=== PATIENT | female | born 1965 | race African-American/Black ===

== ENCOUNTER 2021-10-17 10:29 | Outpatient (REF) | payer OTHER, SELFPAY ==
[2021-10-17 12:19] LABS: MANUAL DIFF FLAG NO
[2021-10-17 12:40] LABS: Basophils Percent Auto 0.4 % (0-2); Eosinophils Absolute Auto 0.1 X10*3/uL (0.0-0.4); Eosinophils Percent Auto 1.7 % (0-4); Hemoglobin 13.6 g/dl (12.0-16.0); Lymphocytes Absolute Auto 1.8 X10*3/uL (1.2-4.9); Lymphocytes Percent Auto 36.8 % (20-40); Mean Corpuscular HGB Conc 33.2 g/dl (31.0-35.0); Mean Corpuscular Hemoglobin 27.1 pg (27.0-33.0); Mean Corpuscular Volume 81.7 fL (80.0-98.0); Monocytes Absolute Auto 0.5 X10*3/uL (0.1-1.2); Monocytes Percent Auto 10.3 % (2-11); Neutrophils Absolute Auto 2.4 x10*3/uL (2.0-8.3); Neutrophils Percent Auto 50.8 % (45-73); Platelet Count 240 X10*3/uL (160-400); Red Blood Count 5.02 X10*6/uL (4.20-5.50); Red Cell Distribution Width 14.5 % (11.0-16.0); White Blood Count 4.8 X10*3/uL (4.8-10.8)
[2021-10-17 13:09] LABS: Alanine Aminotransferase 13 U/L (0-31); Aspartate Amino Transferase 14 U/L (5-31); C Reactive Protein 0.29 mg/dL (< or = 0.50); Estimated Glomerular Filt Rate 59
[2021-10-17 13:32] LABS: Erythrocyte Sedimentation Rate 11 MM/HR (0-20)
== END 2021-10-17 10:30 | disposition home or self-care (01) ==
LOC: HO.LAB 10:29
PROVIDERS: PCP Internal Medicine; Visit Provider Internal Medicine Rheumatology
DX: M06.00 Rheumatoid arthritis without rheumatoid factor, unspecified site (principal); M47.817 Spondylosis without myelopathy or radiculopathy, lumbosacral region; Z79.899 Other long term (current) drug therapy
CPT/HCPCS: 36415; 82565; 84450; 84460; 85025; 85652; 86140

== ENCOUNTER 2022-02-15 13:01 | Outpatient (REF) | payer OTHER, SELFPAY ==
[2022-02-15 13:21] LABS: MANUAL DIFF FLAG NO
[2022-02-15 13:56] LABS: Basophils Percent Auto 0.2 % (0-2); Eosinophils Absolute Auto 0.1 X10*3/uL (0.0-0.4); Eosinophils Percent Auto 1.7 % (0-4); Hematocrit 39.4 % (37.0-47.0); Hemoglobin 12.9 g/dl (12.0-16.0); Imm Gran Abs Auto 0.01 X10*3/uL (0.00-0.03); Imm Gran Pct Auto 0.2 % (0.0-0.4); Lymphocytes Absolute Auto 1.6 X10*3/uL (1.2-4.9); Lymphocytes Percent Auto 39.6 % (20-40); Mean Corpuscular HGB Conc 32.7 g/dl (31.0-35.0); Mean Corpuscular Hemoglobin 26.9 pg (27.0-33.0); Mean Corpuscular Volume 82.1 fL (80.0-98.0); Mean Platelet Volume 11.6 fL (9.4-12.3); Monocytes Absolute Auto 0.4 X10*3/uL (0.1-1.2); Neutrophils Percent Auto 49.3 % (45-73); Platelet Count 223 X10*3/uL (160-400); Red Cell Distribution Width 14.4 % (11.0-16.0); White Blood Count 4.1 X10*3/uL (4.8-10.8)
[2022-02-15 14:17] LABS: Alanine Aminotransferase 14 U/L (0-31); Aspartate Amino Transferase 14 U/L (5-31); C Reactive Protein 0.22 mg/dL (< or = 0.50); Estimated Glomerular Filt Rate > 60
[2022-02-15 14:40] LABS: Erythrocyte Sedimentation Rate 12 MM/HR (0-20)
== END 2022-02-15 13:02 | disposition home or self-care (01) ==
LOC: HO.LAB 13:01
PROVIDERS: PCP Internal Medicine; Visit Provider Internal Medicine Rheumatology
DX: M06.00 Rheumatoid arthritis without rheumatoid factor, unspecified site (principal); Z79.899 Other long term (current) drug therapy
CPT/HCPCS: 36415; 82565; 84450; 84460; 85025; 85652; 86140

== ENCOUNTER 2022-04-18 14:30 | Outpatient (REF) | payer OTHER, SELFPAY ==
[2022-04-18 14:42] LABS: MANUAL DIFF FLAG NO
[2022-04-18 15:14] LABS: Basophils Percent Auto 0.5 % (0-2); Eosinophils Absolute Auto 0.1 X10*3/uL (0.0-0.4); Eosinophils Percent Auto 2.5 % (0-4); Hematocrit 41.2 % (37.0-47.0); Hemoglobin 13.5 g/dl (12.0-16.0); Imm Gran Abs Auto 0.01 X10*3/uL (0.00-0.03); Imm Gran Pct Auto 0.2 % (0.0-0.4); Lymphocytes Absolute Auto 1.7 X10*3/uL (1.2-4.9); Lymphocytes Percent Auto 42.4 % (20-40); Mean Corpuscular HGB Conc 32.8 g/dl (31.0-35.0); Mean Corpuscular Hemoglobin 26.9 pg (27.0-33.0); Mean Corpuscular Volume 82.1 fL (80.0-98.0); Mean Platelet Volume 10.7 fL (9.4-12.3); Monocytes Absolute Auto 0.4 X10*3/uL (0.1-1.2); Monocytes Percent Auto 10.3 % (2-11); Neutrophils Absolute Auto 1.8 x10*3/uL (2.0-8.3); Neutrophils Percent Auto 44.1 % (45-73); Platelet Count 255 X10*3/uL (160-400); Red Blood Count 5.02 X10*6/uL (4.20-5.50); Red Cell Distribution Width 14.3 % (11.0-16.0); White Blood Count 4.1 X10*3/uL (4.8-10.8)
[2022-04-18 15:52] LABS: Alanine Aminotransferase 14 U/L (0-31); Aspartate Amino Transferase 15 U/L (5-31); C Reactive Protein 0.27 mg/dL (< or = 0.50)
[2022-04-18 16:24] LABS: Erythrocyte Sedimentation Rate 12 MM/HR (0-20)
== END 2022-04-18 14:31 | disposition home or self-care (01) ==
LOC: HO.LAB 14:30
PROVIDERS: PCP Internal Medicine; Visit Provider Internal Medicine Rheumatology
DX: M06.00 Rheumatoid arthritis without rheumatoid factor, unspecified site (principal); Z79.899 Other long term (current) drug therapy
CPT/HCPCS: 36415; 84450; 84460; 85025; 85652; 86140

== ENCOUNTER 2022-04-24 12:22 | Outpatient (REF) | payer OTHER, SELFPAY ==
--- NOTE | ~2022-04-24 | XR_ITS ---
EXAMINATION: XR ELBOW, LEFT CLINICAL INFORMATION: Left elbow pain. COMPARISON: None TECHNIQUE: AP, lateral, and oblique views of the left elbow. FINDINGS: There is no evidence of acute fracture or dislocation of the left elbow. Left elbow joint spaces are maintained. No evidence of calcific epicondylitis. There appears to be an elbow effusion and, if there has been recent trauma, an occult fracture is not excluded. XR/XR elbow LT min 3V IMPRESSION: Small elbow effusion without definite bony abnormality appreciated as described.
== END 2022-04-24 12:23 | disposition home or self-care (01) ==
LOC: HO.XRAY 12:22
PROVIDERS: PCP Internal Medicine; Visit Provider Internal Medicine Rheumatology
DX: M25.522 Pain in left elbow (principal)
CPT/HCPCS: 73080

== ENCOUNTER 2022-04-30 13:48 | Outpatient (REF) | payer OTHER, SELFPAY ==
[2022-04-30 14:47] LABS: COVID-19 Test Negative (Negative); IDNOW Serial# BCCEAD1C
== END 2022-04-30 13:49 | disposition home or self-care (01) ==
LOC: HO.LAB 13:48
PROVIDERS: Internal Medicine; Visit Provider Physician Assistant
DX: Z20.822 Contact with and (suspected) exposure to COVID-19 (principal)
CPT/HCPCS: 87635; C9803

== ENCOUNTER 2022-06-25 13:39 | Outpatient (REF) | payer OTHER, SELFPAY ==
--- NOTE | ~2022-06-25 | XR_ITS ---
EXAMINATION: XR FOOT, RIGHT CLINICAL INFORMATION: Pain. COMPARISON: None TECHNIQUE: AP, lateral, and oblique views of the right foot. FINDINGS: Bony mineralization is normal. There is a mild metatarsus adductus and hallux valgus configuration. There is moderate bunion formation of the first metatarsal head. No fracture, dislocation or right ankle joint effusion is seen. There is very mild osteoarthritic change of the right tibiotalar joint, and a tiny loose body is questioned anteriorly within the joint space. Boehler's angle is normal. There is a small posterior calcaneal spur. No focal soft tissue swelling, gas or foreign body is seen. XR/XR foot LT min 3V IMPRESSION: 1. No fracture, dislocation or right ankle joint effusion is seen. 2. There is very mild osteoarthritic change of the right tibiotalar joint, and a tiny loose body is questioned anteriorly within the joint space. 3. There is moderate bunion formation. 4. There is a small posterior calcaneal spur. EXAMINATION: XR FOOT, LEFT CLINICAL INFORMATION: Pain. COMPARISON: None TECHNIQUE: AP, lateral, and oblique views of the left foot. FINDINGS: Bony mineralization is normal. There is a moderate metatarsus adductus and hallux valgus angulation. There is mild bunion formation of the first metatarsal head. No fracture, dislocation or left ankle joint effusion is bullous and normal. There is a small to moderate posterior calcaneal spur. No focal soft tissue swelling, gas or foreign body is seen IMPRESSION: 1. No fracture, dislocation or left ankle joint effusion is seen. 2. There is mild bunion formation. 3. There is a small to moderate posterior calcaneal spur.
--- NOTE | ~2022-06-25 | XR_ITS ---
EXAMINATION: XR FOOT, RIGHT CLINICAL INFORMATION: Pain. COMPARISON: None TECHNIQUE: AP, lateral, and oblique views of the right foot. FINDINGS: Bony mineralization is normal. There is a mild metatarsus adductus and hallux valgus configuration. There is moderate bunion formation of the first metatarsal head. No fracture, dislocation or right ankle joint effusion is seen. There is very mild osteoarthritic change of the right tibiotalar joint, and a tiny loose body is questioned anteriorly within the joint space. Boehler's angle is normal. There is a small posterior calcaneal spur. No focal soft tissue swelling, gas or foreign body is seen. XR/XR foot RT min 3V IMPRESSION: 1. No fracture, dislocation or right ankle joint effusion is seen. 2. There is very mild osteoarthritic change of the right tibiotalar joint, and a tiny loose body is questioned anteriorly within the joint space. 3. There is moderate bunion formation. 4. There is a small posterior calcaneal spur. EXAMINATION: XR FOOT, LEFT CLINICAL INFORMATION: Pain. COMPARISON: None TECHNIQUE: AP, lateral, and oblique views of the left foot. FINDINGS: Bony mineralization is normal. There is a moderate metatarsus adductus and hallux valgus angulation. There is mild bunion formation of the first metatarsal head. No fracture, dislocation or left ankle joint effusion is bullous and normal. There is a small to moderate posterior calcaneal spur. No focal soft tissue swelling, gas or foreign body is seen IMPRESSION: 1. No fracture, dislocation or left ankle joint effusion is seen. 2. There is mild bunion formation. 3. There is a small to moderate posterior calcaneal spur.
[2022-06-25 13:54] LABS: MANUAL DIFF FLAG NO
[2022-06-25 14:26] LABS: Basophils Percent Auto 0.4 % (0-2); Eosinophils Absolute Auto 0.1 X10*3/uL (0.0-0.4); Eosinophils Percent Auto 2.1 % (0-4); Hematocrit 38.6 % (37.0-47.0); Hemoglobin 12.6 g/dl (12.0-16.0); Imm Gran Abs Auto 0.01 X10*3/uL (0.00-0.03); Imm Gran Pct Auto 0.2 % (0.0-0.4); Lymphocytes Absolute Auto 1.8 X10*3/uL (1.2-4.9); Lymphocytes Percent Auto 37.2 % (20-40); Mean Corpuscular HGB Conc 32.6 g/dl (31.0-35.0); Mean Corpuscular Hemoglobin 26.8 pg (27.0-33.0); Mean Platelet Volume 11.7 fL (9.4-12.3); Monocytes Absolute Auto 0.6 X10*3/uL (0.1-1.2); Monocytes Percent Auto 11.8 % (2-11); Neutrophils Absolute Auto 2.3 x10*3/uL (2.0-8.3); Neutrophils Percent Auto 48.3 % (45-73); Platelet Count 251 X10*3/uL (160-400); Red Blood Count 4.71 X10*6/uL (4.20-5.50); Red Cell Distribution Width 14.5 % (11.0-16.0); White Blood Count 4.8 X10*3/uL (4.8-10.8)
[2022-06-25 15:04] LABS: Erythrocyte Sedimentation Rate 13 MM/HR (0-20)
[2022-06-25 16:13] LABS: Alanine Aminotransferase 14 U/L (0-31); Aspartate Amino Transferase 16 U/L (5-31); C Reactive Protein 0.25 mg/dL (< or = 0.50); Estimated Glomerular Filt Rate > 60
== END 2022-06-25 13:40 | disposition home or self-care (01) ==
LOC: HO.XRAY 13:39
PROVIDERS: PCP Internal Medicine; Visit Provider Internal Medicine Rheumatology
DX: M79.672 Pain in left foot (principal); M79.671 Pain in right foot; M06.00 Rheumatoid arthritis without rheumatoid factor, unspecified site; Z79.899 Other long term (current) drug therapy
CPT/HCPCS: 36415; 73630; 82565; 84450; 84460; 85025; 85652; 86140

== ENCOUNTER → 2022-06-27 10:25 | Outpatient (BNVA) | payer OTHER, SELFPAY | PROVIDERS: PCP Internal Medicine; Visit Provider Internal Medicine Rheumatology | DX: Z13.89 Encounter for screening for other disorder (principal) ==

== ENCOUNTER 2022-10-21 11:49 | Outpatient (REF) | payer OTHER, SELFPAY ==
[2022-10-21 11:59] LABS: MANUAL DIFF FLAG NO
[2022-10-21 12:15] LABS: Basophils Percent Auto 0.5 % (0-2); Eosinophils Absolute Auto 0.2 X10*3/uL (0.0-0.4); Eosinophils Percent Auto 3.9 % (0-4); Hematocrit 38.1 % (37.0-47.0); Hemoglobin 12.6 g/dl (12.0-16.0); Imm Gran Abs Auto 0.01 X10*3/uL (0.00-0.03); Imm Gran Pct Auto 0.2 % (0.0-0.4); Lymphocytes Absolute Auto 1.9 X10*3/uL (1.2-4.9); Lymphocytes Percent Auto 43.5 % (20-40); Mean Corpuscular HGB Conc 33.1 g/dl (31.0-35.0); Mean Corpuscular Hemoglobin 26.9 pg (27.0-33.0); Mean Corpuscular Volume 81.2 fL (80.0-98.0); Mean Platelet Volume 11.3 fL (9.4-12.3); Monocytes Absolute Auto 0.4 X10*3/uL (0.1-1.2); Monocytes Percent Auto 9.2 % (2-11); Neutrophils Absolute Auto 1.9 x10*3/uL (2.0-8.3); Neutrophils Percent Auto 42.7 % (45-73); Platelet Count 258 X10*3/uL (160-400); Red Blood Count 4.69 X10*6/uL (4.20-5.50); Red Cell Distribution Width 14.2 % (11.0-16.0); White Blood Count 4.3 X10*3/uL (4.8-10.8)
[2022-10-21 12:55] LABS: Erythrocyte Sedimentation Rate 13 MM/HR (0-20)
[2022-10-21 13:39] LABS: Alanine Aminotransferase 15 U/L (0-31); Aspartate Amino Transferase 16 U/L (5-31); C Reactive Protein 0.26 mg/dL (< or = 0.50); Estimated Glomerular Filt Rate 60
== END 2022-10-21 11:50 | disposition home or self-care (01) ==
LOC: HO.LAB 11:49
PROVIDERS: Visit Provider Internal Medicine Rheumatology
DX: M06.00 Rheumatoid arthritis without rheumatoid factor, unspecified site (principal); Z79.899 Other long term (current) drug therapy
CPT/HCPCS: 36415; 82565; 84450; 84460; 85025; 85652; 86140

== ENCOUNTER 2022-10-29 09:45 | Outpatient (REF) | payer OTHER, SELFPAY ==
--- NOTE | ~2022-10-29 | XR_ITS ---
EXAMINATION: XR LUMBOSACRAL SPINE CLINICAL INFORMATION: Spondylosis COMPARISON: None available. TECHNIQUE: Three views of the lumbosacral spine. FINDINGS: There may be transitional anatomy or 6 lumbar-type vertebral bodies. For the purposes of this dictation, levels are designated with the transitional segment inferiorly and the first nonrib-bearing vertebral body designated as L1. There is posterior fusion hardware at L5-S1 with posterior rods and bilateral transpedicular screws. There is an intervertebral body disc spacer. Surgical hardware appears intact. There does not appear to be bony ankylosis at the L5-S1 disc space. Mild 2 mm anterior subluxation of L4 with respect to L5. Bone alignment is otherwise normal. Mild degenerative spondylosis and disc space narrowing at L3-L4, L4-L5 and transitional S1 levels. Lower lumbar spine facet arthritis. XR/XR lumbar spine 2-3V IMPRESSION: Probable transitional anatomy or 6 lumbar-type vertebral bodies. Levels are designated with the transitional segment inferiorly in the first nonrib-bearing vertebral body designated as L1. Postsurgical changes at L5 transitional segment level. Intact surgical hardware. Degenerative changes of the lower lumbar sacral spine.
== END 2022-10-29 09:46 | disposition home or self-care (01) ==
LOC: HO.XRAY 09:45
PROVIDERS: PCP Internal Medicine; Visit Provider Internal Medicine Rheumatology
DX: M47.817 Spondylosis without myelopathy or radiculopathy, lumbosacral region (principal); M47.812 Spondylosis without myelopathy or radiculopathy, cervical region; M06.00 Rheumatoid arthritis without rheumatoid factor, unspecified site; Z79.899 Other long term (current) drug therapy
CPT/HCPCS: 72100

== ENCOUNTER 2023-02-06 07:24 | Outpatient (REF) | payer OTHER, SELFPAY ==
[2023-02-06 07:35] LABS: MANUAL DIFF FLAG NO
[2023-02-06 08:32] LABS: Basophils Percent Auto 0.2 % (0-2); Eosinophils Absolute Auto 0.1 X10*3/uL (0.0-0.4); Eosinophils Percent Auto 2.5 % (0-4); Hematocrit 38.4 % (37.0-47.0); Hemoglobin 12.8 g/dl (12.0-16.0); Imm Gran Abs Auto 0.04 X10*3/uL (0.00-0.03); Imm Gran Pct Auto 0.8 % (0.0-0.4); Lymphocytes Absolute Auto 1.8 X10*3/uL (1.2-4.9); Lymphocytes Percent Auto 36.8 % (20-40); Mean Corpuscular HGB Conc 33.3 g/dl (31.0-35.0); Mean Corpuscular Hemoglobin 27.5 pg (27.0-33.0); Mean Corpuscular Volume 82.6 fL (80.0-98.0); Mean Platelet Volume 11.4 fL (9.4-12.3); Monocytes Absolute Auto 0.3 X10*3/uL (0.1-1.2); Neutrophils Absolute Auto 2.6 x10*3/uL (2.0-8.3); Neutrophils Percent Auto 52.7 % (45-73); Platelet Count 247 X10*3/uL (160-400); Red Blood Count 4.65 X10*6/uL (4.20-5.50); Red Cell Distribution Width 14.6 % (11.0-16.0); White Blood Count 4.9 X10*3/uL (4.8-10.8)
[2023-02-06 08:43] LABS: Alanine Aminotransferase 15 U/L (0-31); Aspartate Amino Transferase 15 U/L (5-31); C Reactive Protein 0.21 mg/dL (< or = 0.50); Estimated Glomerular Filt Rate 58
[2023-02-06 09:34] LABS: Erythrocyte Sedimentation Rate 13 MM/HR (0-20)
== END 2023-02-06 07:25 | disposition home or self-care (01) ==
LOC: HO.LAB 07:24
PROVIDERS: PCP Internal Medicine; Visit Provider Internal Medicine Rheumatology
DX: M06.00 Rheumatoid arthritis without rheumatoid factor, unspecified site (principal); Z79.899 Other long term (current) drug therapy
CPT/HCPCS: 36415; 82565; 84450; 84460; 85025; 85652; 86140

== ENCOUNTER 2023-02-12 10:30 | Outpatient (AMB) | payer OTHER, SELFPAY ==
[2023-02-12 10:30] VITALS: BP 122/78; PULSE 68; RESP 16; TEMP 36.2; O2SAT 98
--- NOTE | 2023-02-12 10:30 | MHC.OFFVIS ---
Intake Vital Signs 02/12/23 10:30 Height 5 ft 8 in BP 122/78 Blood Pressure Location Lt brachial Position Sitting Respiration 16 Pulse 68 Pulse Source Palpation Temp 97.2 F Temp Source Skin Pulse Oximetry (%) 98 Intake Visit Reasons: RA; OA Allergies prednisone Allergy (Verified 02/12/23 10:40) Rash Medication List - Last Reconciled 02/12/23 by Daniella Avalos RN atorvastatin 10 mg PO BEDTIME erythromycin ophthalmic (eye) fluticasone propionate 50 mcg/actuation (Allergy Relief (fluticasone)) 2 sprays intranasal DAILY PRN folic acid 1 mg PO DAILY hydrochlorothiazide 25 mg PO DAILY ibuprofen 400 mg PO Q8H PRN losartan 100 mg PO DAILY methotrexate sodium 10 mg (4 x 2.5 mg) PO QWEEK HPI HPI Comments History of Present Illness Details The patient returns for evaluation of her rheumatoid arthritis and osteoarthritis. She remains with pain in the lower back. This is worse with more physical activity. We did work this up with an x-ray and she went to physiatry. They gave her a corticosteroid injection. That helped for about 3 weeks but they could not suggest additional treatment. They recommended she return to her back surgeon for further evaluation. An MRI had been done by them but I do not have those results. She also is getting some right calf pain. This has been there for about 2 months now. It is worse with more physical activity; both ankles are occasionally swollen at the end of the day. She does not have any history of DVT. She remains on methotrexate 10 mg weekly, ibuprofen 600 t.i.d. p.r.n., and folic acid 1 mg daily. [facility] Medical History Long-term use of immunosuppressant medication Osteoarthritis of lumbosacral spine Migraine GERD (gastroesophageal reflux disease) Osteoarthritis cervical spine Seronegative rheumatoid arthritis Family History Maternal Aunt Breast cancer Mother Rheumatoid arthritis Hypertension Heart failure Social History Household Members: Spouse Housing: House Are you a primary care program director to a significant other at home: No Do you presently have visiting nurse or other home services: No Alcohol intake: never Patient Tobacco Use Status: Never used Tobacco e-Cigarette/Vaping Use: Never Used service: No Current occupational status: employed 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 Card Details: Negative chest pain, edema and syncope Resp Details: Negative for SOB, cough and wheezing GI Details: Negative indigestion/heartburn, nausea, abdominal pain, bowel changes, diarrhea, constipation and bloody stool. Neuro Details: Negative for epilepsy, palsy, stroke, changes in speech, tingling and weakness Luis/Lymph Details: Negative for excessive bruising or bleeding. Physical Exam Vital Signs: Last Vital Signs Temp 97.2 F 02/12/23 10:30 Pulse 68 02/12/23 10:30 Resp 16 02/12/23 10:30 BP 122/78 02/12/23 10:30 Pulse Ox 98 02/12/23 10:30 APPEARANCE: Patient in no acute distress EYES no redness, pupils equal and reactive to light, eyelids normal. No temporal artery tenderness, redness or swelling. EXTREMITIES: No edema today. I measured the calf circumference at a 0.6 cm below the infrapatellar area. This measures 15.5 cm on each side. So there is no difference and girth of the calf area. There is rather diffuse calf tenderness of a mild nature. I do not palpate any nodules or tender veins in the leg. She has normal peripheral pulses. NEURO: Oriented and alert x3. No focal weakness. Reflexes symmetric. Gait normal. SKIN: No inflammatory or neoplastic lesions. Normal color and turgor Joint exam: Cervical Spine:.? Slight decrease in normal lateral rotation and lateral flexion but no pain with motion.? no cervical muscle tenderness. Thoracic Spine:.? No scoliosis.? No tenderness on palpation. Lumbar Spine:.? Alignment normal.? Lumbar pain with flexion at 60 degrees.? Some paraspinal muscle tenderness..? Straight leg raising is negative.? No weakness in the legs. Chest Wall:.? No tenderness, swelling, increased warmth or erythema. Hands:.? Right:? Slight tenderness at the thumb IP and 5th PIP's.? There is slight flexion deformity at the 5th PIP joint.? Elsewhere no tenderness or swelling.? No thenar atrophy or sensory loss.? Left:? Normal pain-free range of motion with slight tenderness at the thumb IP joint.? Elsewhere no tenderness, swelling, increased warmth or erythema.? No thenar atrophy or sensory loss. Wrists:.? Right:? Mild pain with flexion extension at 75 degrees.? No tenderness or swelling.? Left:? Slight pain with flexion extension at 75 degrees without tenderness or swelling. Elbows:? Right:? Normal pain-free range of motion with slight lateral epicondylar tenderness.? No tenderness or swelling over the joint space.? Left:? Normal pain-free range of motion.? There is mild tenderness over the lateral epicondyle.? There is no tenderness or swelling over the joint space.? Shoulders:? Mild discomfort with extremes of range of motion.? Mild anterior tenderness without abductor weakness or adenopathy.? Left:?? Full range of motion without pain. No tenderness, weakness, swelling, increased warmth or erythema. Hips:.? Full range of motion without pain. Hip bursa:.? Mild bilateral trochanteric tenderness. Knees:.?? Normal pain-free range of motion with mild patellofemoral crepitus.? There is some slight medial tenderness but no effusions, swelling, increased warmth or erythema.? Ankles:? Right:? There is some degree of valgus evident at the ankle.? There is mild medial and lateral tenderness with questionable lateral swelling perhaps related to the valgus deformity.? No redness or warmth.? AP motion is pain-free but there is pain with inversion and eversion.? Left:? Normal pain-free range of motion.? No swelling but there is some slight medial and lateral tenderness. Feet: Right:? There are flatfoot?deformities evident.? There is tenderness across the instep mostly around the medial aspect.? The 1st MTP is bony enlargement and mild tenderness.? No soft tissue swelling, redness or warmth.? Left:? Flatfoot deformities are evident.? Mild tenderness in the medial instep area and slight tenderness at the 1st MTP where there is bony enlargement.? Other areas have no tenderness or swelling. Tender points: Mild tenderness to digital palpation at the trapezius, right lateral epicondyle,? greater trochanter area bilaterally. Assessment & Plan Assessment & Plan (1) Swollen ankles: Code(s): M25.471 - Effusion, right ankle; M25.472 - Effusion, left ankle (2) Right calf pain: Code(s): M79.661 - Pain in right lower leg (3) Seronegative rheumatoid arthritis: Comment: Onset 2013 Seronegative RA with predominant involvement of feet , ankles and knees 02/14 Methotrexate started Code(s): M06.00 - Rheumatoid arthritis without rheumatoid factor, unspecified site Plan Once again I do not really see any activity of her rheumatoid arthritis. She does not have any side effects with this dose of methotrexate so I think it can be continued. Most problematic for her of course is the lumbar osteoarthritis. She has had surgery there before so the picture is complicated. I encouraged her to follow through with the surgical evaluation. She has this right calf tenderness without edema today but does describe ankle swelling intermittently over the past 2 months. This does suggest some venous insufficiency. There is a distant chance of a possible DVT so we will obtain a sonogram of that area. It is possible she is getting calf pain also because of referred pain from her lumbar disease or perhaps related to her flatfoot deformity and valgus deformity at the ankle. We will get back to her with the results of the ultrasound. Lab work is due before next visit in about 3 months. Addendum: venous ultrasound negative for DVT. Patient informed on patient portal. Orders: Orders US venous duplex LE BI Today M25.471 - Effusion, right ankle, M25.472 - Effusion, left ankle, M79.661 - Pain in right lower leg Erythrocyte Sedimentation Rate Today M06.00 - Rheumatoid arthritis without rheumatoid factor, unspecified site C Reactive Protein Today M06.00 - Rheumatoid arthritis without rheumatoid factor, unspecified site Alanine Aminotransferase Today M06.00 - Rheumatoid arthritis without rheumatoid factor, unspecified site, Z79.899 - Other medical charge entry specialist (current) drug therapy Aspartate Amino Transferase Today M06.00 - Rheumatoid arthritis without rheumatoid factor, unspecified site, Z79.899 - Other medical charge entry specialist (current) drug therapy Complete Blood Count Auto Diff Today M06.00 - Rheumatoid arthritis without rheumatoid factor, unspecified site, Z79.899 - Other correction (current) drug therapy Creatinine Today M06.00 - Rheumatoid arthritis without rheumatoid factor, unspecified site, Z79.899 - Other medical charge entry specialist (current) drug therapy Coding Level of Care Code Est Pt Level 3 (19746) Diagnoses Swollen ankles M25.471; M25.472 Right calf pain M79.661 Seronegative rheumatoid arthritis M06.00
== END 2023-02-12 11:24 | disposition home or self-care (01) ==
PROVIDERS: PCP Internal Medicine; Visit Provider Internal Medicine Rheumatology
DX: M25.471 Effusion, right ankle (principal); M25.472 Effusion, left ankle; M79.661 Pain in right lower leg; M06.00 Rheumatoid arthritis without rheumatoid factor, unspecified site
CPT/HCPCS: 99213

== ENCOUNTER → 2023-02-12 10:30 | Outpatient (BNVA) | payer OTHER, SELFPAY | PROVIDERS: PCP Internal Medicine; Visit Provider Internal Medicine Rheumatology ==

== ENCOUNTER 2023-02-12 12:17 | Outpatient (REF) | payer OTHER, SELFPAY ==
--- NOTE | ~2023-02-12 | US_ITS ---
EXAMINATION: US VENOUS ULTRASOUND WITH DOPPLER LOWER EXTREMITY, BILATERAL CLINICAL INFORMATION: Bilateral ankle swelling. COMPARISON: None available. TECHNIQUE: Ultrasound of the deep veins is performed from the hip to the calf with compression sonography and color and pulse Doppler assessment. Spectral analysis with color-flow imaging is performed. FINDINGS: RIGHT: There is normal venous compression and respiratory variation and augmented flow. The visualized common femoral vein, superficial femoral vein, profunda femoral vein, popliteal vein, and the trifurcation region shows no evidence of deep venous thrombosis. There is no significant popliteal fossa cyst. LEFT: There is normal venous compression and respiratory variation and augmented flow. The visualized common femoral vein, superficial femoral vein, profunda femoral vein, popliteal vein, and the trifurcation region shows no evidence of deep venous thrombosis. There is no significant popliteal fossa cyst. US/US venous duplex LE BI IMPRESSION: No DVT demonstrated in the bilateral lower extremities.
== END 2023-02-12 12:18 | disposition home or self-care (01) ==
LOC: HO.US 12:17
PROVIDERS: PCP Internal Medicine; Visit Provider Internal Medicine Rheumatology
DX: M25.471 Effusion, right ankle (principal); M25.472 Effusion, left ankle; M79.661 Pain in right lower leg
CPT/HCPCS: 93970

== ENCOUNTER 2023-05-16 13:28 | Outpatient (REF) | payer OTHER, SELFPAY ==
[2023-05-16 13:41] LABS: MANUAL DIFF FLAG NO
[2023-05-16 13:55] LABS: Basophils Percent Auto 0.5 % (0-2); Eosinophils Absolute Auto 0.1 X10*3/uL (0.0-0.4); Eosinophils Percent Auto 1.6 % (0-4); Hematocrit 40.4 % (37.0-47.0); Hemoglobin 13.2 g/dl (12.0-16.0); Lymphocytes Absolute Auto 1.7 X10*3/uL (1.2-4.9); Lymphocytes Percent Auto 44.8 % (20-40); Mean Corpuscular HGB Conc 32.7 g/dl (31.0-35.0); Mean Corpuscular Hemoglobin 26.6 pg (27.0-33.0); Mean Corpuscular Volume 81.3 fL (80.0-98.0); Mean Platelet Volume 11.4 fL (9.4-12.3); Monocytes Absolute Auto 0.3 X10*3/uL (0.1-1.2); Neutrophils Absolute Auto 1.7 x10*3/uL (2.0-8.3); Neutrophils Percent Auto 45.1 % (45-73); Platelet Count 245 X10*3/uL (160-400); Red Blood Count 4.97 X10*6/uL (4.20-5.50); White Blood Count 3.8 X10*3/uL (4.8-10.8)
[2023-05-16 14:17] LABS: Alanine Aminotransferase 14 U/L (0-31); Aspartate Amino Transferase 16 U/L (5-31); C Reactive Protein 0.17 mg/dL (< or = 0.50); Estimated Glomerular Filt Rate > 60
[2023-05-16 14:38] LABS: Erythrocyte Sedimentation Rate 13 MM/HR (0-20)
== END 2023-05-16 13:29 | disposition home or self-care (01) ==
LOC: HO.LAB 13:28
PROVIDERS: Visit Provider Internal Medicine Rheumatology
DX: M06.00 Rheumatoid arthritis without rheumatoid factor, unspecified site (principal); Z79.899 Other long term (current) drug therapy
CPT/HCPCS: 36415; 82565; 84450; 84460; 85025; 85652; 86140

== ENCOUNTER 2023-05-19 10:55 | Outpatient (AMB) | payer OTHER, SELFPAY ==
--- NOTE | 2023-05-19 10:59 | MHC.OFFVIS ---
Intake Vital Signs 05/19/23 11:14 Height 5 ft 8 in BMI Reason not done Patient refused/unable BP 100/80 Blood Pressure Location Lt brachial Position Sitting Pulse 99 Pulse Source Pulse Oximeter Temp 97 F Temp Source Skin Pulse Oximetry (%) 96 Oxygen Delivery Method Room Air Intake Visit Reasons: RA/OA Intake Note: Patient last seen 02/12/23, presents today for follow up and test results. Requesting refill on MTX. Reports seeing Dr. Richards, received back injections. Motor Room Controller Required: No Accompanied by: Self / Same As Patient Allergies prednisone Allergy (Verified 05/19/23 11:07) Rash HPI HPI Comments History of Present Illness Details The patient returns for evaluation of her rheumatoid arthritis and osteoarthritis. She remains on methotrexate 10 mg weekly, folic acid 1 mg daily, and ibuprofen 400-800 mg t.i.d. p.r.n.. In general the peripheral joints are doing fine with no significant swelling or pain. She is bothered mostly by neck and back pains. The back pain seems to radiate to the right buttock more than the left. It is worse with more physical activity. She has had a fusion in the back. She recently did receive a corticosteroid injection from physiatry. This did not seem to help her more than a week or 2. She was told she could consider a revisit to surgery. She is not sure she wants to pursue that presently. Also bothersome recently has been some upper thoracic and neck pain. This seems to come on when she is working at her desk. It is also present when she tries to walk. She feels like she feels better walking in a store with a grocery cart in front of her. Her family has told her that she is walking stooped over. She also has had previous surgery on the neck, I believe a fusion in that region over 10 years ago. [facility] Medical History Long-term use of immunosuppressant medication Osteoarthritis of lumbosacral spine Migraine GERD (gastroesophageal reflux disease) Osteoarthritis cervical spine Seronegative rheumatoid arthritis Family History Maternal Aunt Breast cancer Mother Rheumatoid arthritis Hypertension Heart failure Social History (Reviewed 05/19/23 @ 11:07 by PLACIDO Crocker Household Members: Spouse Housing: House Are you a primary health care social worker to a significant other at home: No Do you presently have visiting nurse or other home services: No 75 years or older and lives alone: No Alcohol intake: never Patient Tobacco Use Status: Never used Tobacco e-Cigarette/Vaping Use: Never Used service: No Current occupational status: employed 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 Card Details: Negative chest pain, edema and syncope Resp Details: Negative for SOB, cough and wheezing GI Details: Negative indigestion/heartburn, nausea, abdominal pain, bowel changes, diarrhea, constipation and bloody stool. Neuro Details: Negative for epilepsy, palsy, stroke, changes in speech, tingling and weakness Luis/Lymph Details: Negative for excessive bruising or bleeding. Physical Exam Vital Signs: Last Vital Signs Temp 97 F 05/19/23 11:14 Pulse 99 05/19/23 11:14 BP 100/80 05/19/23 11:14 Pulse Ox 96 05/19/23 11:14 Oxygen Delivery Method Room Air 05/19/23 11:14 APPEARANCE: Patient in no acute distress EYES no redness, pupils equal and reactive to light, eyelids normal. No temporal artery tenderness, redness or swelling. EXTREMITIES: No edema today. there is no difference and girth of the calf area. There is no calf tenderness today. I do not palpate any nodules or tender veins in the leg. She has normal peripheral pulses. NEURO: Oriented and alert x3. No focal weakness. Reflexes symmetric. Gait normal. SKIN: No inflammatory or neoplastic lesions. Normal color and turgor Joint exam: Cervical Spine:.? Slight decrease in normal lateral rotation and lateral flexion; there is some mild neck pain felt at the base of the neck posteriorly with the extremes of this motion. There is some mild cervical muscle tenderness. Thoracic Spine:.? No scoliosis.? No tenderness on palpation. Lumbar Spine:.? Alignment normal.? Lumbar pain with flexion at 60 degrees.? Some paraspinal muscle tenderness..? Straight leg raising is negative.? No weakness in the legs. Chest Wall:.? No tenderness, swelling, increased warmth or erythema. Hands:.? Right:? Slight tenderness at the thumb IP and 5th PIP's.? There is slight flexion deformity at the 5th PIP joint.? Elsewhere no tenderness or swelling.? No thenar atrophy or sensory loss.? Left:? Normal pain-free range of motion with slight tenderness at the thumb IP joint.? Elsewhere no tenderness, swelling, increased warmth or erythema.? No thenar atrophy or sensory loss. Wrists:.? Right:? Mild pain with flexion extension at 75 degrees.? No tenderness or swelling.? Left:? Slight pain with flexion extension at 75 degrees without tenderness or swelling. Elbows:? Right:? Normal pain-free range of motion with no joint space or epicondylar tenderness.? No swelling over the joint space.? Left:? Normal pain-free range of motion.? There is mild tenderness over the lateral epicondyle.? There is no tenderness or swelling over the joint space.? Shoulders: Right:? Mild discomfort with extremes of range of motion; this discomfort is felt over the top of the shoulder and the trapezius region posteriorly..? Mild anterior tenderness without abductor weakness or adenopathy.? Left:?? Full range of motion without pain. No tenderness, weakness, swelling, increased warmth or erythema. Hips:.? Full range of motion without pain. Hip bursa:.? Mild bilateral trochanteric tenderness. Knees:.?? Normal pain-free range of motion with mild patellofemoral crepitus.? There is some slight medial tenderness but no effusions, swelling, increased warmth or erythema.? Ankles:? Right:? There is some degree of valgus evident at the ankle.? There is mild medial and lateral tenderness with questionable lateral swelling perhaps related to the valgus deformity.? No redness or warmth.? AP motion is pain-free but there is pain with inversion and eversion.? Left:? Normal pain-free range of motion.? No swelling but there is some slight medial and lateral tenderness. Feet: Right:? There are flatfoot?deformities evident.? There is tenderness across the instep mostly around the medial aspect.? The 1st MTP is bony enlargement and mild tenderness.? No soft tissue swelling, redness or warmth.? Left:? Flatfoot deformities are evident.? Mild tenderness in the medial instep area and slight tenderness at the 1st MTP where there is bony enlargement.? Other areas have no tenderness or swelling. Tender points: Mild tenderness to digital palpation at the right trapezius, medial knees,? greater trochanter area bilaterally. Results Reviewed Results Reviewed: Laboratory Tests 05/16/23 13:40 WBC 3.8 L Hgb 13.2 ESR 13 Creatinine 0.91 AST 16 ALT 14 C-Reactive Protein 0.17 Assessment & Plan Assessment & Plan (1) Osteoarthritis cervical spine: Comment: Cervical decompression and fusion C5-7 12/10 Code(s): M47.812 - Spondylosis without myelopathy or radiculopathy, cervical region (2) Osteoarthritis of both feet: Comment: bilateral at 1st mtp's; R subtalar OA Code(s): M19.071 - Primary osteoarthritis, right ankle and foot; M19.072 - Primary osteoarthritis, left ankle and foot (3) Long-term use of immunosuppressant medication: Code(s): Z79.899 - Other petroleum terminal plant operator (current) drug therapy (4) Seronegative rheumatoid arthritis: Comment: Onset 2013 Seronegative RA with predominant involvement of feet , ankles and knees 02/14 Methotrexate started Code(s): M06.00 - Rheumatoid arthritis without rheumatoid factor, unspecified site Plan So today I do not see any small joint swelling or significant tenderness that was suggest active rheumatoid arthritis. She seems to be tolerating this dose of methotrexate so I think it can be continued as above. Her other symptoms with neck pain and back pain in the face of previous cervical and lumbar fusions indicates some osteoarthritis. There is also OA in the first MTP's. We talked about possible physical therapy for the spinal pains but she does not want to pursue that for now. We will try some nighttime cyclobenzaprine. She also could consider revisiting her surgeons who had done the neck and lower back surgery in the past. However at this point she wants to see physiatry again, Dr. Richards, but this time for her neck pain. We would plan to see her back here in Rheumatology in 3-4 months with lab work before the visit. Orders: Orders Erythrocyte Sedimentation Rate Today M06.00 - Rheumatoid arthritis without rheumatoid factor, unspecified site, M47.812 - Spondylosis without myelopathy or radiculopathy, cervical region Alanine Aminotransferase Today M06.00 - Rheumatoid arthritis without rheumatoid factor, unspecified site, M47.812 - Spondylosis without myelopathy or radiculopathy, cervical region, Z79.899 - Other petroleum terminal plant operator (current) drug therapy Aspartate Amino Transferase Today M06.00 - Rheumatoid arthritis without rheumatoid factor, unspecified site, M47.812 - Spondylosis without myelopathy or radiculopathy, cervical region, Z79.899 - Other petroleum terminal plant operator (current) drug therapy Complete Blood Count Auto Diff 1 Month M06.00 - Rheumatoid arthritis without rheumatoid factor, unspecified site, M47.812 - Spondylosis without myelopathy or radiculopathy, cervical region, Z79.899 - Other petroleum terminal plant operator (current) drug therapy Creatinine Today M06.00 - Rheumatoid arthritis without rheumatoid factor, unspecified site, M47.812 - Spondylosis without myelopathy or radiculopathy, cervical region, Z79.899 - Other petroleum terminal plant operator (current) drug therapy C Reactive Protein Today M06.00 - Rheumatoid arthritis without rheumatoid factor, unspecified site, M47.812 - Spondylosis without myelopathy or radiculopathy, cervical region Referrals Physiatry Referral M47.812 - Spondylosis without myelopathy or radiculopathy, cervical region Medications: New cyclobenzaprine 5 - 10 mg (0.5 - 1 x 10 mg) PO BEDTIME PRN 30 tabs 1RF muscle spasm M47.812 - Spondylosis without myelopathy or radiculopathy, cervical region Coding Level of Care Code Est Pt Level 3 (30169) Diagnoses Osteoarthritis cervical spine M47.812 Osteoarthritis of both feet M19.071; M19.072 Long-term use of immunosuppressant medication Z79.899 Seronegative rheumatoid arthritis M06.00
[2023-05-19 11:14] VITALS: BP 100/80; PULSE 99; TEMP 36.1; O2SAT 96
== END 2023-05-19 11:41 | disposition home or self-care (01) ==
PROVIDERS: PCP Internal Medicine; Visit Provider Internal Medicine Rheumatology
DX: M47.812 Spondylosis without myelopathy or radiculopathy, cervical region (principal); M19.071 Primary osteoarthritis, right ankle and foot; M19.072 Primary osteoarthritis, left ankle and foot; Z79.899 Other long term (current) drug therapy; M06.00 Rheumatoid arthritis without rheumatoid factor, unspecified site
CPT/HCPCS: 99213

== ENCOUNTER → 2023-05-19 10:55 | Outpatient (BNVA) | payer OTHER, SELFPAY | PROVIDERS: PCP Internal Medicine; Visit Provider Internal Medicine Rheumatology ==

== ENCOUNTER 2023-09-16 09:59 | Outpatient (REF) | payer OTHER, SELFPAY ==
[2023-09-16 10:11] LABS: MANUAL DIFF FLAG NO
[2023-09-16 10:38] LABS: Basophils Percent Auto 0.4 % (0-2); Eosinophils Absolute Auto 0.1 X10*3/uL (0.0-0.4); Eosinophils Percent Auto 1.5 % (0-4); Hemoglobin 12.7 g/dl (12.0-16.0); Imm Gran Abs Auto 0.01 X10*3/uL (0.00-0.03); Imm Gran Pct Auto 0.2 % (0.0-0.4); Lymphocytes Absolute Auto 2.4 X10*3/uL (1.2-4.9); Lymphocytes Percent Auto 49.3 % (20-40); Mean Corpuscular HGB Conc 34.3 g/dl (31.0-35.0); Mean Corpuscular Hemoglobin 29.6 pg (27.0-33.0); Mean Corpuscular Volume 86.2 fL (80.0-98.0); Mean Platelet Volume 11.2 fL (9.4-12.3); Monocytes Absolute Auto 0.4 X10*3/uL (0.1-1.2); Monocytes Percent Auto 8.3 % (2-11); Neutrophils Absolute Auto 1.9 x10*3/uL (2.0-8.3); Neutrophils Percent Auto 40.3 % (45-73); Platelet Count 266 X10*3/uL (160-400); Red Blood Count 4.29 X10*6/uL (4.20-5.50); Red Cell Distribution Width 16.2 % (11.0-16.0); White Blood Count 4.8 X10*3/uL (4.8-10.8)
[2023-09-16 11:10] LABS: Alanine Aminotransferase 17 U/L (0-31); Aspartate Amino Transferase 14 U/L (5-31); C Reactive Protein 0.17 mg/dL (< or = 0.50); Estimated Glomerular Filt Rate 51
[2023-09-16 11:11] LABS: Erythrocyte Sedimentation Rate 13 MM/HR (0-20)
== END 2023-09-16 10:00 | disposition home or self-care (01) ==
LOC: HO.LAB 09:59
PROVIDERS: Visit Provider Internal Medicine Rheumatology
DX: M47.812 Spondylosis without myelopathy or radiculopathy, cervical region (principal); M06.00 Rheumatoid arthritis without rheumatoid factor, unspecified site; Z79.899 Other long term (current) drug therapy
CPT/HCPCS: 36415; 82565; 84450; 84460; 85025; 85652; 86140

== ENCOUNTER 2023-11-12 15:23 | Outpatient (REF) | payer OTHER, SELFPAY ==
[2023-11-13 08:16] LABS: HBS Num1 > 1000.00 mIU/mL (0-7.99); HBc Num1 3.18 S/CO (0.00-0.79); HBsAGNum1 0.46 S/CO (0.00-0.99); Hepatitis A Antibody IgM 0.27 Index (0-0.79); Hepatitis B Surface Antigen Negative (Negative); ~HepC Num1 0.11 S/CO (0.00-0.79); ~Hepatitis A Antibody IgM Nonreactive (Nonreactive); ~Hepatitis B Surface Antibody REACTIVE (Nonreactive); ~Hepatitis C Antibody Nonreactive (Nonreactive)
[2023-11-13 09:37] LABS: HBc Num2 3.28 S/CO; HBc Num3 3.17 S/CO; Hepatitis B Core Antibody Reactive (Nonreactive)
[2023-11-14 20:58] LABS: Prot Elec - Alpha1 0.3 g/dL (0.2-0.3); Prot Elec - Alpha2 0.7 g/dL (0.5-0.9); Prot Elec - Beta 1 0.4 g/dL (0.4-0.6); Prot Elec - Beta 2 0.4 g/dL (0.2-0.5); Prot Elec - Gamma 0.9 g/dL (0.8-1.7); Prot Elec - Total Protein 6.7 g/dL (6.1-8.1)
[2023-11-15 10:13] LABS: TS Negative Control Passed; TS Panel A 0; TS Panel B 0; TS Positive Control Passed; TSpotTB Negative (Negative)
[2023-11-17 12:34] LABS: IgA 168 mg/dL (47-310); IgG 957 mg/dL (600-1640); IgM 61 mg/dL (50-300)
== END 2023-11-12 15:24 | disposition home or self-care (01) ==
LOC: HO.LAB 15:23
PROVIDERS: PCP Internal Medicine; Visit Provider Nurse Practitioner Family
DX: M06.00 Rheumatoid arthritis without rheumatoid factor, unspecified site (principal); Z11.9 Encounter for screening for infectious and parasitic diseases, unspecified
CPT/HCPCS: 36415; 82784; 84165; 86334; 86481; 86704; 86706; 86709; 86803; 87340

== ENCOUNTER 2023-11-12 15:23 | Outpatient (AMB) | payer OTHER, SELFPAY ==
--- NOTE | 2023-11-12 15:24 | MHC.OFFVIS ---
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 Nuñez, presents today for follow up and test results. Needs folic acid refill Reports lots f pain, palpitations. Has seen physiatry Dr Richards and will be seeing neurosurgeon Dr Emil Hadley Porcelain Mixer Required: No Accompanied by: Self / Same As Patient Allergies prednisone Allergy (Verified 11/12/23 15:35) Rash HPI Comments Details: The patient returns for follow-up of her rheumatoid arthritis and osteoarthritis. She remains on methotrexate 10 mg weekly, folic acid 1 mg daily, and ibuprofen 400-800 mg t.i.d. p.r.n.. In general the peripheral joints has been worsening since last visit with no significant swelling but increased aches. She is also bothered mostly by neck and back pains. The back pain seems to radiate to the right buttock more than the left. It is worse with more physical activity. She has had a fusion in the back. She recently did receive a corticosteroid injection from physiatry. This did not seem to help her more than a week or 2. She was told she could consider a revisit to surgery. She is not sure she wants to pursue that presently. She also has had fusion surgery on the neck over 10 years ago. 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 Nuñez: The patient returns for evaluation of her rheumatoid arthritis and osteoarthritis. She remains on methotrexate 10 mg weekly, folic acid 1 mg daily, and ibuprofen 400-800 mg t.i.d. p.r.n.. In general the peripheral joints are doing fine with no significant swelling or pain. She is bothered mostly by neck and back pains. The back pain seems to radiate to the right buttock more than the left. It is worse with more physical activity. She has had a fusion in the back. She recently did receive a corticosteroid injection from physiatry. This did not seem to help her more than a week or 2. She was told she could consider a revisit to surgery. She is not sure she wants to pursue that presently. Also bothersome recently has been some upper thoracic and neck pain. This seems to come on when she is working at her desk. It is also present when she tries to walk. She feels like she feels better walking in a store with a grocery cart in front of her. Her family has told her that she is walking stooped over. She also has had previous surgery on the neck, I believe a fusion in that region over 10 years ago [facility] Medical History (Updated 11/15/23 @ 16:46 by Kim Fu [facility]) Screening examination for infectious disease Long-term use of immunosuppressant medication Osteoarthritis of lumbosacral spine Migraine GERD (gastroesophageal reflux disease) Osteoarthritis cervical spine Seronegative rheumatoid arthritis Family History Maternal Aunt Breast cancer Mother Rheumatoid arthritis Hypertension Heart failure Social History Household Members: Spouse Housing: House Are you a primary child care director to a significant other at home: No Do you presently have visiting nurse or other home services: No 75 years or older and lives alone: No Alcohol intake: never Patient Tobacco Use Status: Never used Tobacco e-Cigarette/Vaping Use: Never Used service: No Current occupational status: employed 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 HEART:? Regular rhythm, S1-S2 heard, no murmurs, rubs or gallops. LUNG:? Clear to percussion and auscultation EXTREMITIES: No edema today. there is no difference and girth of the calf area. There is no calf tenderness today. I do not palpate any nodules or tender veins in the leg. She has normal peripheral pulses. NEURO: Oriented and alert x3. No focal weakness. Reflexes symmetric. Gait normal. SKIN: No inflammatory or neoplastic lesions. Normal color and turgor Joint exam: Cervical Spine:.? Slight decrease in normal lateral rotation and lateral flexion; there is some mild neck pain felt at the base of the neck posteriorly with the extremes of this motion. There is some mild cervical muscle tenderness. Thoracic Spine:.? No scoliosis.? No tenderness on palpation. Lumbar Spine:.? Alignment normal.? Lumbar pain with flexion at 60 degrees.? Some paraspinal muscle tenderness..? Straight leg raising is negative.? No weakness in the legs. Chest Wall:.? No tenderness, swelling, increased warmth or erythema. Hands:.? Right:? Slight tenderness at the thumb IP and 5th PIP's.? There is slight flexion deformity at the 5th PIP joint.? Elsewhere no tenderness or swelling.? No thenar atrophy or sensory loss.? Left:? Normal pain-free range of motion with slight tenderness at the thumb IP joint.? Elsewhere no tenderness, swelling, increased warmth or erythema.? No thenar atrophy or sensory loss. Wrists:.? Right:? Mild pain with flexion extension at 75 degrees.? No tenderness or swelling.? Left:? Slight pain with flexion extension at 75 degrees without tenderness or swelling. Elbows:? Right:? Normal pain-free range of motion with no joint space or epicondylar tenderness.? No swelling over the joint space.? Left:? Normal pain-free range of motion.? There is mild tenderness over the lateral epicondyle.? There is no tenderness or swelling over the joint space.? Shoulders: Right:? Mild discomfort with extremes of range of motion; this discomfort is felt over the top of the shoulder and the trapezius region posteriorly..? Mild anterior tenderness without abductor weakness or adenopathy.? Left:?? Full range of motion without pain. No tenderness, weakness, swelling, increased warmth or erythema. Hips:.? Full range of motion without pain. Hip bursa:.? Mild to moderate bilateral trochanteric tenderness. Knees:.?? Normal pain-free range of motion with mild patellofemoral crepitus.? There is some slight medial tenderness but no effusions, swelling, increased warmth or erythema.? Ankles:? Right:? There is some degree of valgus evident at the ankle.? There is mild medial and lateral tenderness with questionable lateral swelling perhaps related to the valgus deformity.? No redness or warmth.? AP motion is pain-free but there is pain with inversion and eversion.? Left:? Normal pain-free range of motion.? No swelling but there is some slight medial and lateral tenderness. Feet: Right:? There are flatfoot?deformities evident.? There is tenderness across the instep mostly around the medial aspect.? The 1st MTP is bony enlargement and mild tenderness.? No soft tissue swelling, redness or warmth.? Left:? Flatfoot deformities are evident.? Mild tenderness in the medial instep area and slight tenderness at the 1st MTP where there is bony enlargement.? Other areas have no tenderness or swelling. Tender points: Mild tenderness to digital palpation at the right trapezius, medial knees,? greater trochanter area bilaterally. Results Reviewed Results Reviewed: Laboratory Tests 09/16/23 10:10 WBC 4.8 RBC 4.29 Hgb 12.7 Hct 37.0 ESR 13 AST 14 ALT 17 C-Reactive Protein 0.17 Assessment & Plan Assessment & Plan (1) Osteoarthritis cervical spine: Comment: Cervical decompression and fusion C5-7 12/10 Code(s): M47.812 - Spondylosis without myelopathy or radiculopathy, cervical region Category: Medical Qualifiers: Spinal osteoarthritis complication: without myelopathy or radiculopathy Qualified Code(s): M47.812 - Spondylosis without myelopathy or radiculopathy, cervical region (2) Osteoarthritis of both feet: Comment: bilateral at 1st mtp's; R subtalar OA Code(s): M19.071 - Primary osteoarthritis, right ankle and foot; M19.072 - Primary osteoarthritis, left ankle and foot Category: Medical Qualifiers: Osteoarthritis type: primary Qualified Code(s): M19.071 - Primary osteoarthritis, right ankle and foot; M19.072 - Primary osteoarthritis, left ankle and foot (3) Long-term use of immunosuppressant medication: Code(s): Z79.899 - Other community engagement leader (current) drug therapy Category: Medical (4) Seronegative rheumatoid arthritis: Comment: Onset 2013 Seronegative RA with predominant involvement of feet , ankles and knees 9/15 Methotrexate started Code(s): M06.00 - Rheumatoid arthritis without rheumatoid factor, unspecified site Category: Medical Plan #SeroNeg RA: On PE, there is no small joint swelling that there is some significant tenderness that would suggest active rheumatoid arthritis. She seems to be tolerating this dose of methotrexate so I think it can be continued as above. However I think she could do is increase immunosuppressive therapy so we will add some Humira 40 mg Q2W and reassess for improvement. #OA cervical pain: Her other symptoms with neck pain and back pain in the face of previous cervical and lumbar fusions indicates some osteoarthritis. There is also OA in the first MTP's. She have revisited her surgeons who had done the neck and lower back surgery in the past and he wants to go back in but she has not so sure. She will be seeing the physiatry again, Dr. Richards, but this time for her neck pain. #Long-term use: Continue to monitor CBC and CMP. Obtain TB and hep panel for Humira start. Discussed signs and symptoms of side effects for Humira and patient should hold for fever and infection, surgery and nonhealing wound. Follow-up in Rheumatology in 3-4 months with lab work before the visit. I spent 35 minutes reviewing history and chart, evaluating patient and documenting Orders: Orders T Spot TB 11/12/23 Z11.9 - Encounter for screening for infectious and parasitic diseases, unspecified Protein Electrophoresis, Serum 11/12/23 M06.00 - Rheumatoid arthritis without rheumatoid factor, unspecified site, Z11.9 - Encounter for screening for infectious and parasitic diseases, unspecified Hepatitis A,B,C Profile 11/12/23 Z11.9 - Encounter for screening for infectious and parasitic diseases, unspecified Complete Blood Count Auto Diff 8 Weeks M06.00 - Rheumatoid arthritis without rheumatoid factor, unspecified site, Z79.899 - Other community engagement leader (current) drug therapy C Reactive Protein 8 Weeks M06.00 - Rheumatoid arthritis without rheumatoid factor, unspecified site, Z79.899 - Other correction (current) drug therapy Immunoglobulins,IgG IgA IgM 11/12/23 M06.00 - Rheumatoid arthritis without rheumatoid factor, unspecified site, Z11.9 - Encounter for screening for infectious and parasitic diseases, unspecified Immunofixation Pnl, Serum 11/12/23 M06.00 - Rheumatoid arthritis without rheumatoid factor, unspecified site Erythrocyte Sedimentation Rate 8 Weeks M06.00 - Rheumatoid arthritis without rheumatoid factor, unspecified site, Z79.899 - Other correction (current) drug therapy Comprehensive Met. Panel 8 Weeks M06.00 - Rheumatoid arthritis without rheumatoid factor, unspecified site, Z79.899 - Other correction (current) drug therapy Coding Level of Care Code Est Pt Level 4 (93708) Diagnoses Spondylosis of cervical region without myelopathy or radiculopathy M47.812 Spinal osteoarthritis complication: without myelopathy or radiculopathy Primary osteoarthritis of both feet M19.071; M19.072 Osteoarthritis type: primary Long-term use of immunosuppressant medication Z79.899 Seronegative rheumatoid arthritis M06.00
[2023-11-12 15:25] VITALS: BP 132/80; PULSE 83; O2SAT 96; BMI 33.0
== END 2023-11-12 16:18 | disposition home or self-care (01) ==
LOC: HO.RHE 15:23
PROVIDERS: PCP Internal Medicine; Visit Provider Nurse Practitioner Family
DX: M47.812 Spondylosis without myelopathy or radiculopathy, cervical region (principal); M19.071 Primary osteoarthritis, right ankle and foot; M19.072 Primary osteoarthritis, left ankle and foot; Z79.899 Other long term (current) drug therapy; M06.00 Rheumatoid arthritis without rheumatoid factor, unspecified site
CPT/HCPCS: 99214

== ENCOUNTER 2024-02-06 13:57 | Outpatient (REF) | payer OTHER, SELFPAY ==
[2024-02-06 14:25] LABS: MANUAL DIFF FLAG NO
[2024-02-06 15:04] LABS: Eosinophils Absolute Auto 0.1 X10*3/uL (0.0-0.4); Eosinophils Percent Auto 2.7 % (0-4); Hematocrit 35.8 % (37.0-47.0); Hemoglobin 11.7 g/dl (12.0-16.0); Imm Gran Abs Auto 0.01 X10*3/uL (0.00-0.03); Imm Gran Pct Auto 0.2 % (0.0-0.4); Lymphocytes Absolute Auto 1.5 X10*3/uL (1.2-4.9); Mean Corpuscular HGB Conc 32.7 g/dl (31.0-35.0); Mean Corpuscular Hemoglobin 26.4 pg (27.0-33.0); Mean Corpuscular Volume 80.6 fL (80.0-98.0); Mean Platelet Volume 11.6 fL (9.4-12.3); Monocytes Absolute Auto 0.2 X10*3/uL (0.1-1.2); Monocytes Percent Auto 5.9 % (2-11); Neutrophils Absolute Auto 2.2 x10*3/uL (2.0-8.3); Neutrophils Percent Auto 54.2 % (45-73); Platelet Count 317 X10*3/uL (160-400); Red Blood Count 4.44 X10*6/uL (4.20-5.50); White Blood Count 4.1 X10*3/uL (4.8-10.8)
[2024-02-06 15:33] LABS: Alanine Aminotransferase 14 U/L (0-31); Albumin Level 3.8 g/dL (3.5-5.0); Alkaline Phosphatase 69 U/L (39-117); Anion Gap 9 (12-20); Aspartate Amino Transferase 15 U/L (5-31); Bilirubin Total 0.3 mg/dL (0.0-1.0); Blood Urea Nitrogen 12 mg/dL (9-16); C Reactive Protein 0.22 mg/dL (< or = 0.50); Calcium 9.9 mg/dL (8.4-10.2); Carbon Dioxide 31 mmol/L (22-29); Chloride 107 mmol/L (96-108); Estimated Glomerular Filt Rate > 60; Glucose Random 100 mg/dL (60-115); Potassium 3.1 mmol/L (3.3-5.1); Sodium 144 mmol/L (135-145); Total Protein 6.9 g/dL (6.5-8.0)
[2024-02-06 16:22] LABS: Erythrocyte Sedimentation Rate 25 MM/HR (0-20)
== END 2024-02-06 13:58 | disposition home or self-care (01) ==
LOC: HO.LAB 13:57
PROVIDERS: Absent Provider Student in an Organized Health Care Education/Training Program; PCP Internal Medicine; Visit Provider Nurse Practitioner Family
DX: M06.00 Rheumatoid arthritis without rheumatoid factor, unspecified site (principal); Z79.899 Other long term (current) drug therapy
CPT/HCPCS: 36415; 80053; 85025; 85652; 86140

== ENCOUNTER 2024-02-09 13:54 | Outpatient (AMB) | payer OTHER, SELFPAY ==
[2024-02-09 14:04] VITALS: BP 130/76; PULSE 78; O2SAT 97; BMI 31.8
--- NOTE | 2024-02-09 14:04 | A.OFFVIS_ITS ---
Vital Signs 02/09/24 14:04 Height 5 ft 8 in Weight 209 lb BMI 31.8 BP 130/76 Blood Pressure Location Lt brachial Position Sitting Pulse 78 Pulse Source Pulse Oximeter Pulse Oximetry (%) 97 Oxygen Delivery Method Room Air Intake Visit Reasons: RA/OA Intake Note: Patient presents today for follow up on RA/OA and lab work. She was last seen by Kim Fu on 11/12/2023. Patient states the Methotrexate is making her sick. She states it has been for a while. Allergies prednisone Allergy (Verified 02/09/24 14:07) Rash Medication List - Last Reconciled 02/09/24 by Blaine Hyatt MD atorvastatin 10 mg PO BEDTIME cyclobenzaprine 5 - 10 mg (0.5 - 1 x 10 mg) PO BEDTIME PRN fluticasone propionate 50 mcg/actuation (Allergy Relief (fluticasone)) 2 sprays intranasal DAILY PRN folic acid 1 mg PO DAILY hydrochlorothiazide 25 mg PO DAILY ibuprofen 400 mg PO Q8H PRN losartan 100 mg PO DAILY methotrexate sodium 15 mg (6 x 2.5 mg) PO QWEEK HPI Comments Details: This is a 58-year-old female with seronegative RA who presents for follow-up. Patient had a lumbar fusion about 3 weeks ago and she continues to have low back pain. This is her main complaint today. With regards to her RA. Last visit Humira was prescribed, it was denied ask patient needed to be on 15 mg of methotrexate. She has been taking methotrexate 15 mg weekly for the last 6-7 weeks. She has noted slightly more nauseousness with higher dose of methotrexate. It lasts 1-2 days after the weekly dose. She states she does not feel that it helped her joints much. However it is hard for her to assess given her significant back pain FORMERLY [facility], [facility] Medical History Screening examination for infectious disease Long-term use of immunosuppressant medication Osteoarthritis of lumbosacral spine Migraine GERD (gastroesophageal reflux disease) Osteoarthritis cervical spine Seronegative rheumatoid arthritis Surgical History S/P lumbar fusion Family History Maternal Aunt Breast cancer Mother Rheumatoid arthritis Hypertension Heart failure Social History Household Members: Spouse Housing: House Are you a primary patient centered care specialist to a significant other at home: No Do you presently have visiting nurse or other home services: No 75 years or older and lives alone: No Alcohol intake: never Patient Tobacco Use Status: Never used Tobacco e-Cigarette/Vaping Use: Never Used service: No Current occupational status: employed 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[facility] [place] Reports back pain and Reports arthralgias Physical Exam Vital Signs: Last Vital Signs Pulse 78 02/09/24 14:04 BP 130/76 02/09/24 14:04 Pulse Ox 97 02/09/24 14:04 Oxygen Delivery Method Room Air 02/09/24 14:04 BMI result Body Mass Index 31.8 Const General: cooperative, healthy appearing and comfortable Nutritional Appearance: obese Orientation/consciousness: patient oriented x3 Limitations: no limitations HEENT Head: Yes normocephalic and Yes atraumatic Mouth: moist mucous membranes Resp Effort & Inspection: normal respiratory effort and able to speak in complete sentences Auscultation: clear to auscultation bilaterally Cardio Rate: regular rate Neuro General: patient oriented x3 Extrem Other: Mild osteoarthritic changes of both hands with no active synovitis Normal range of motion of hands, wrists, elbows and shoulders without pain No knee swelling, warmth or tenderness bilaterally No ankle swelling or tenderness bilaterally Bilateral bunions Negative MTP squeeze test bilaterally No MTP tenderness bilaterally Assessment & Plan Assessment & Plan (1) Seronegative rheumatoid arthritis: Comment: Onset 2013 Seronegative RA with predominant involvement of feet , ankles and knees 02/14 Methotrexate started Code(s): M06.00 - Rheumatoid arthritis without rheumatoid factor, unspecified site Category: Medical Plan: This is a 58-year-old female with seronegative RA who presents for follow-up. This is her 1st visit with me. Last visit Humira was prescribed, it was denied ask patient needed to be on 15 mg of methotrexate. She has been taking meth otrexate 15 mg weekly for the last 6-7 weeks. She has noted slightly more nauseousness with higher dose of methotrexate. On exam I do not see any active synovitis. Patient however stated that she does not feel that the increased dose of methotrexate helped her joint pains. I think we should lower her methotrexate to 10 mg weekly and re-evaluate after 3 months. If patient has persistent GI symptoms, or active synovitis we will switch to a TNF inhibitor. Continue folic acid 1 mg daily Labs before next visit in 3 months (2) Long-term use of immunosuppressant medication: Code(s): Z79.899 - Other extermination inspector (current) drug therapy Category: Medical Plan: Monitor safety labs for methotrexate (3) Hepatitis B core antibody positive: Code(s): R76.8 - Other specified abnormal immunological findings in serum Category: Medical Plan: Would consider referral to GI if patient requires a biologic (4) Hypokalemia: Code(s): E87.6 - Hypokalemia Category: Medical Plan: Mild. Follow-up with PCP Plan This is patient's 1st visit with me. I spent 45 minutes reviewing patient's chart, evaluating patient, ordering diagnostic workup, counseling patient and documenting in the chart Orders: Orders C Reactive Protein 3 Months M06.00 - Rheumatoid arthritis without rheumatoid factor, unspecified site Erythrocyte Sedimentation Rate 3 Months M06.00 - Rheumatoid arthritis without rheumatoid factor, unspecified site Complete Blood Count Auto Diff 3 Months M06.00 - Rheumatoid arthritis without rheumatoid factor, unspecified site Comprehensive Met. Panel 3 Months M06.00 - Rheumatoid arthritis without rheumatoid factor, unspecified site Medications: Changed From methotrexate sodium 15 mg (6 x 2.5 mg) PO QWEEK 96 tabs 0RF M06.00 - Rheumatoid arthritis without rheumatoid factor, unspecified site To methotrexate sodium 10 mg (4 x 2.5 mg) PO QWEEK 48 tabs 0RF M06.00 - Rheumatoid arthritis without rheumatoid factor, unspecified site Coding Level of Care Code Est Pt Level 5 (66844) Complex EM visit Add On G2211 Diagnoses Seronegative rheumatoid arthritis M06.00 Long-term use of immunosuppressant medication Z79.899 Hepatitis B core antibody positive R76.8 Hypokalemia E87.6
== END 2024-02-09 14:58 | disposition home or self-care (01) ==
PROVIDERS: PCP Internal Medicine; Visit Provider Student in an Organized Health Care Education/Training Program
DX: M06.00 Rheumatoid arthritis without rheumatoid factor, unspecified site (principal); Z79.899 Other long term (current) drug therapy; R76.8 Other specified abnormal immunological findings in serum; E87.6 Hypokalemia
CPT/HCPCS: 99215

== ENCOUNTER → 2024-02-09 13:54 | Outpatient (BNVA) | payer OTHER, SELFPAY | PROVIDERS: PCP Internal Medicine; Visit Provider Student in an Organized Health Care Education/Training Program ==

== ENCOUNTER 2024-04-27 15:46 | Outpatient (REF) | payer OTHER, SELFPAY ==
[2024-04-27 15:59] LABS: MANUAL DIFF FLAG NO
[2024-04-27 17:14] LABS: Basophils Percent Auto 0.5 % (0-2); Eosinophils Absolute Auto 0.1 X10*3/uL (0.0-0.4); Hematocrit 39.3 % (37.0-47.0); Hemoglobin 12.9 g/dl (12.0-16.0); Imm Gran Abs Auto 0.02 X10*3/uL (0.00-0.03); Imm Gran Pct Auto 0.5 % (0.0-0.4); Lymphocytes Absolute Auto 1.6 X10*3/uL (1.2-4.9); Lymphocytes Percent Auto 38.2 % (20-40); Mean Corpuscular HGB Conc 32.8 g/dl (31.0-35.0); Mean Corpuscular Hemoglobin 26.4 pg (27.0-33.0); Mean Corpuscular Volume 80.5 fL (80.0-98.0); Mean Platelet Volume 11.2 fL (9.4-12.3); Monocytes Absolute Auto 0.5 X10*3/uL (0.1-1.2); Monocytes Percent Auto 11.3 % (2-11); Neutrophils Absolute Auto 1.9 x10*3/uL (2.0-8.3); Neutrophils Percent Auto 47.5 % (45-73); Platelet Count 247 X10*3/uL (160-400); Red Blood Count 4.88 X10*6/uL (4.20-5.50); White Blood Count 4.1 X10*3/uL (4.8-10.8)
[2024-04-27 17:34] LABS: Alanine Aminotransferase 16 U/L (0-31); Albumin Level 3.9 g/dL (3.5-5.0); Alkaline Phosphatase 69 U/L (39-117); Anion Gap 11 (12-20); Aspartate Amino Transferase 20 U/L (5-31); Bilirubin Total 0.5 mg/dL (0.0-1.0); Blood Urea Nitrogen 12 mg/dL (9-16); C Reactive Protein 0.28 mg/dL (< or = 0.50); Calcium 9.5 mg/dL (8.4-10.2); Carbon Dioxide 28 mmol/L (22-29); Chloride 104 mmol/L (96-108); Estimated Glomerular Filt Rate > 60; Glucose Random 93 mg/dL (60-115); Potassium 3.9 mmol/L (3.3-5.1); Sodium 139 mmol/L (135-145)
[2024-04-27 18:25] LABS: Erythrocyte Sedimentation Rate 14 MM/HR (0-20)
== END 2024-04-27 15:47 | disposition home or self-care (01) ==
LOC: HO.LAB 15:46
PROVIDERS: PCP Internal Medicine; Visit Provider Student in an Organized Health Care Education/Training Program
DX: M06.00 Rheumatoid arthritis without rheumatoid factor, unspecified site (principal)
CPT/HCPCS: 36415; 80053; 85025; 85652; 86140

== ENCOUNTER 2024-05-04 13:55 | Outpatient (AMB) | payer OTHER, SELFPAY ==
[2024-05-04 13:57] VITALS: BP 158/102; PULSE 86; BMI 32.2
--- NOTE | 2024-05-04 13:57 | MHC.OFFVIS ---
Vital Signs 05/04/24 13:57 Height 5 ft 8 in Weight 211 lb 13.828 oz BMI 32.2 BP 158/102 H Blood Pressure Location Lt brachial Position Sitting Pulse 86 Pulse Source Pulse Oximeter Intake Visit Reasons: RA/lm Intake Note: Patient last seen by Doctor Blaine Hyatt on 02/09/24. Presents today for RA follow up and test results. Welder Tack Required: No Accompanied by: Self / Same As Patient Allergies prednisone Allergy (Verified 05/04/24 14:01) Rash Medication List - Last Reconciled 05/04/24 by Blaine Hyatt MD atorvastatin 10 mg PO BEDTIME cyclobenzaprine 5 - 10 mg (0.5 - 1 x 10 mg) PO BEDTIME PRN fluticasone propionate 50 mcg/actuation (Allergy Relief (fluticasone)) 2 sprays intranasal DAILY PRN folic acid 1 mg PO DAILY hydrochlorothiazide 25 mg PO DAILY ibuprofen 400 mg PO Q8H PRN losartan 100 mg PO DAILY methotrexate sodium 15 mg (6 x 2.5 mg) PO QWEEK HPI Comments Details: This is a 58-year-old female with seronegative RA who presents for follow-up. She remains on methotrexate 15 mg p.o. weekly and folic acid 1 mg daily. She states that she continues to have intermittent flare-ups affecting different joints such as her knees and ankles associated with swelling. She states however that methotrexate causes significant GI upset with abdominal pain and nausea. It lasts all week. [facility] Medical History Screening examination for infectious disease Long-term use of immunosuppressant medication Osteoarthritis of lumbosacral spine Migraine GERD (gastroesophageal reflux disease) Osteoarthritis cervical spine Seronegative rheumatoid arthritis Surgical History S/P lumbar fusion Family History Maternal Aunt Breast cancer Mother Rheumatoid arthritis Hypertension Heart failure Social History Household Members: Spouse Housing: House Are you a primary care center manager to a significant other at home: No Do you presently have visiting nurse or other home services: No 75 years or older and lives alone: No Alcohol intake: never Patient Tobacco Use Status: Never used Tobacco e-Cigarette/Vaping Use: Never Used service: No Current occupational status: employed 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[facility] [place] Reports arthralgias, Reports joint swelling and Reports stiffness Physical Exam Vital Signs: Last Vital Signs Pulse 86 05/04/24 13:57 BP 158/102 H 05/04/24 13:57 BMI result Body Mass Index 32.2 Const General: cooperative, healthy appearing and comfortable Nutritional Appearance: obese Orientation/consciousness: patient oriented x3 Limitations: no limitations HEENT Head: Yes normocephalic and Yes atraumatic Mouth: moist mucous membranes Resp Effort & Inspection: normal respiratory effort and able to speak in complete sentences Auscultation: clear to auscultation bilaterally Cardio Rate: regular rate Neuro General: patient oriented x3 Extrem Other: Mild osteoarthritic changes of both hands with no active synovitis Normal range of motion of hands, wrists, elbows and shoulders without pain No knee swelling, warmth or tenderness bilaterally No ankle swelling or tenderness bilaterally Bilateral bunions Negative MTP squeeze test bilaterally No MTP tenderness bilaterally Assessment & Plan Assessment & Plan (1) Seronegative rheumatoid arthritis: Comment: Onset 2013 Seronegative RA with predominant involvement of feet , ankles and knees 02/14 Methotrexate started Code(s): M06.00 - Rheumatoid arthritis without rheumatoid factor, unspecified site Category: Medical Plan: This is a 58-year-old female with seronegative RA who presents for follow-up. She remains on methotrexate 15 mg once weekly plus folic acid 1 mg daily. She continues to have intermittent flare-ups. She is unable to tolerate methotrexate. She gets GI upset and nausea lasting the entire week. We will need to change DMARDs. Discussed risks and benefits of adalimumab. Patient agreed to proceed. Will start prior authorization for Hyrimoz Stop methotrexate and folic acid Labs before next visit in 3 months (2) Long-term use of immunosuppressant medication: Code(s): Z79.899 - Other chcf (current) drug therapy Category: Medical Plan: Side effects of adalimumab were discussed with the patient in detail including increased risk of infection, demyelinating disease, reactivation of latent TB, possible increased risk of solid and skin tumors. Patient fully aware. Advised patient to seek medical care JIMMY if patient has an infection and advised patient to stop the medication until the infection is resolved. (3) Hepatitis B core antibody positive: Code(s): R76.8 - Other specified abnormal immunological findings in serum Category: Medical Plan: Since patient is plan to start a TNF inhibitor I will refer patient to Infectious Disease Plan I spent 25 minutes reviewing patient's chart, evaluating patient, ordering diagnostic workup, counseling patient and documenting in the chart Orders: Orders Comprehensive Met. Panel 3 Months M06.00 - Rheumatoid arthritis without rheumatoid factor, unspecified site, Z79.899 - Other chcf (current) drug therapy Complete Blood Count Auto Diff 3 Months M06.00 - Rheumatoid arthritis without rheumatoid factor, unspecified site, Z79.899 - Other intermediate school teacher (current) drug therapy C Reactive Protein 3 Months M06.00 - Rheumatoid arthritis without rheumatoid factor, unspecified site, Z79.899 - Other chcf (current) drug therapy Erythrocyte Sedimentation Rate 3 Months M06.00 - Rheumatoid arthritis without rheumatoid factor, unspecified site, Z79.899 - Other intermediate school teacher (current) drug therapy Referrals Infectious Disease Referral R76.8 - Other specified abnormal immunological findings in serum Medications: Discontinued folic acid Discontinued Reason: Doctor's Order 1 mg PO DAILY 90 tabs 3RF M06.00 - Rheumatoid arthritis without rheumatoid factor, unspecified site methotrexate sodium Discontinued Reason: Doctor's Order 15 mg (6 x 2.5 mg) PO QWEEK 78 tabs 1RF M06.00 - Rheumatoid arthritis without rheumatoid factor, unspecified site Coding Level of Care Code Est Pt Level 4 (09498) Complex EM visit Add On G2211 Diagnoses Seronegative rheumatoid arthritis M06.00 Long-term use of immunosuppressant medication Z79.899 Hepatitis B core antibody positive R76.8
--- OUTSIDE RECORDS SUMMARY | 2024-05-11 14:47 | XMS_ITS | Continuity of Care Document ---
Author Organization [facility] y Address [address] [place] [address] Jarred dumas, [address] [place] [address]- Care Team Providers Care Outside Contractor Sales Name Role Phone Bridget Pak MD Primary Care Physician Encounter [facility] [place] Date(s): 03/12/24 - 04/11/24 [facility] [address] [place] [address] Drive [address] [place] [address]- Allergies, Adverse Reactions, Alerts Substance Reaction Severity Status predniSONE not sure made me really sick Active Immunizations Given and Recorded Vaccine Date Status Refusal Reason pneumococcal 23-valent vaccine 06/11/13 Given Medications Albuterol (Eqv-Proventil HFA) 90 mcg/inh inhalation aerosol 2 puffs, Inhalation, Every 6 hours, PRN Wheezing/Shortness of Breath Start Date: 01/15/24 Status: Ordered atorvastatin 10 mg oral tablet 1 tablet = 10 mg, By Mouth, Daily at bedtime, 0 Refills, Maintenance, 11/17/23 13:24:00 EDT, Partial fill upon patient request if the prescription is for a schedule II opioid drug. Start Date: 11/17/23 Status: Ordered docusate sodium 100 mg oral capsule 1 capsule = 100 mg, By Mouth, 2 times a day, PRN as needed for constipation, # 20 capsule, 0 Refills, Maintenance, 01/18/24 10:17:00 EDT, Capsule, [facility], Partial fill upon patient request if the prescription is for a schedule II opi... Start Date: 01/18/24 Status: Ordered folic acid 1 mg oral tablet 1 mg, 1, tablet, By Mouth, Daily, Maintenance, 01/15/24 19:11:00 EDT, Partial fill upon patient request if the prescription is for a schedule II opioid drug. Start Date: 01/15/24 Status: Ordered hydrochlorothiazide 25 mg oral tablet 1 tablet = 25 mg, By Mouth, Daily, 0 Refills, Maintenance, 11/30/10 15:58:11 EDT Start Date: 11/30/10 Status: Ordered losartan 100 mg oral tablet 1 tablet = 100 mg, By Mouth, Daily at bedtime, 0 Refills, Maintenance, 11/17/23 13:24:00 EDT, Partial fill upon patient request if the prescription is for a schedule II opioid drug. Start Date: 11/17/23 Status: Ordered methotrexate 2.5 mg oral tablet 6 tablet = 15 mg, By Mouth, Every week, Maintenance, 01/15/24 19:12:00 EDT, Tablet, Partial fill upon patient request if the prescription is for a schedule II opioid drug. Start Date: 01/15/24 Status: Ordered oxyCODONE 10 mg oral tablet 1 tablet = 10 mg, By Mouth, Every 4 hours, PRN as needed for pain, may take 5mg for moderate pain or 10mg for severe pain, # 42 tablet, 0 Refills, Maintenance, 01/18/24 10:16:00 EDT, Tablet, [facility], Partial fill upon patient request... Start Date: 01/18/24 Status: Ordered Valium 5 mg oral tablet 5 mg, By Mouth, 3 times a day, PRN, # 42 tablet, Refills 0, Tot. Refills 0, Maintenance, Spasm, 01/18/24 10:16:00 EDT, Route to Pharmacy Electronically, [facility], Partial fill upon patient request if the prescription is for a schedule... Start Date: 01/18/24 Status: Ordered Problem List Condition Confirmation Course Effective Dates Status H ealth Status Informant Obese class I Confirmed Active Prolapsed cervical intervertebral disc Confirmed Active Social History Social History Type Response Smoking Status Never smoker entered on: 10/06/13 Sex Patient Care team information Care Team Personnel Name: Matilde Patel RN Position: [facility] RN Member Role: Primary Care Nurse Name: Jacob Nuñez Position: [facility] Outreach Member Role: Lifetime Consulting Physician Name: Bridget Pak MD Position: [facility] Physician - Primary Care Member Role: PCP Address: Address: [address] [place] [address]- Care Team Related Persons Name: KLAUDIA VERAS Address: home [address] [place], [place] Name: MELISA COHEN Address: [address] [place] [address]
== END 2024-05-04 14:40 | disposition home or self-care (01) ==
PROVIDERS: PCP Internal Medicine; Visit Provider Student in an Organized Health Care Education/Training Program
DX: M06.00 Rheumatoid arthritis without rheumatoid factor, unspecified site (principal); Z79.899 Other long term (current) drug therapy; R76.8 Other specified abnormal immunological findings in serum
CPT/HCPCS: 99214

== ENCOUNTER → 2024-05-04 13:55 | Outpatient (BNVA) | payer OTHER, SELFPAY | PROVIDERS: PCP Internal Medicine; Visit Provider Student in an Organized Health Care Education/Training Program ==

== ENCOUNTER 2024-05-10 14:40 | Outpatient (REF) | payer OTHER, SELFPAY ==
[2024-05-11 08:35] LABS: HIV AB/AG Nonreactive (Nonreactive); HIV Num 1 0.05 S/CO (0.00-0.99)
[2024-05-13 03:38] LABS: Hepatitis B Viral DNA Qn - cp NOT DETECTED Log IU/mL (NOT DETECTED); Hepatitis B Viral DNA Qn-IU/mL NOT DETECTED (NOT DETECTED)
== END 2024-05-10 14:41 | disposition home or self-care (01) ==
LOC: HO.LAB 14:40
PROVIDERS: PCP Internal Medicine; Visit Provider Internal Medicine
DX: R76.8 Other specified abnormal immunological findings in serum (principal)
CPT/HCPCS: 36415; 87389; 87517

== ENCOUNTER 2024-05-10 14:40 | Outpatient (AMB) | payer OTHER, SELFPAY ==
--- NOTE | 2024-05-10 14:37 | MHC.OFFVIS ---
Vital Signs 05/10/24 14:48 Height 5 ft 8 in Weight 215 lb BMI 32.7 BP 132/73 Blood Pressure Location Lt brachial Position Sitting Pulse 81 Pulse Source Pulse Oximeter Temp 97.9 F Temp Source Oral Pulse Oximetry (%) 99 Oxygen Delivery Method Room Air Intake Visit Reasons: reff abnormal immunological findings Allergies prednisone Allergy (Verified 05/10/24 14:49) Rash HPI HPI reff abnormal immunological findings: Details: She has positive Hepatitis B core antibody and Hepatitis B antibody. She has no complaints. [facility] Medical History Screening examination for infectious disease Long-term use of immunosuppressant medication Osteoarthritis of lumbosacral spine Migraine GERD (gastroesophageal reflux disease) Osteoarthritis cervical spine Seronegative rheumatoid arthritis Surgical History S/P lumbar fusion Family History Maternal Aunt Breast cancer Mother Rheumatoid arthritis Hypertension Heart failure Social History Household Members: Spouse Housing: House Are you a primary mall plant caretaker to a significant other at home: No Do you presently have visiting nurse or other home services: No 75 years or older and lives alone: No Alcohol intake: never Patient Tobacco Use Status: Never used Tobacco e-Cigarette/Vaping Use: Never Used service: No Current occupational status: employed 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Const All systems reviewed & are unremarkable except as noted in HPI and below Physical Exam Vital Signs: Last Vital Signs Temp 97.9 F 05/10/24 14:48 Pulse 81 05/10/24 14:48 BP 132/73 05/10/24 14:48 Pulse Ox 99 05/10/24 14:48 Oxygen Delivery Method Room Air 05/10/24 14:48 BMI result Body Mass Index 32.7 Const General: cooperative Orientation/consciousness: patient oriented x3 HEENT Head: Yes normal to inspection Mouth: Normal oral and palatal mucosa present Eyes General: appearance normal, both eyes and all related structures Pupils: Equal, round and reactive pupils present Resp Effort & Inspection: normal respiratory effort Cardio Rate: regular rate Rhythm: regular rhythm GI Palpation (GI): Soft to palpation and nontender General: Yes no CVA tenderness Back/Spine/Pelvis Back: no CVA tenderness Skin General skin exam: no rashes or lesions noted Neuro General: patient oriented x3 Cranial nerves: Yes CN's II-XII intact bilaterally and Yes Equal, round and reactive pupils present Extrem General: Yes normal to inspection Psych Appearance: grossly normal Assessment & Plan Assessment & Plan (1) Hepatitis B core antibody positive: Comment: She is also antibody positive and so not likely active Code(s): R76.8 - Other specified abnormal immunological findings in serum Category: Medical Plan: No treatment or followup labs at this time Orders: Orders HIV Ab/Ag 05/10/24 R76.8 - Other specified abnormal immunological findings in serum Hepatitis B Viral DNA Qn 05/10/24 R76.8 - Other specified abnormal immunological findings in serum Coding Level of Care Code New Pt Level 3 (22710) Diagnoses Hepatitis B core antibody positive R76.8
[2024-05-10 14:48] VITALS: BP 132/73; PULSE 81; TEMP 36.6; O2SAT 99; BMI 32.7
== END 2024-05-10 15:29 | disposition home or self-care (01) ==
PROVIDERS: PCP Internal Medicine; Visit Provider Internal Medicine
DX: R76.8 Other specified abnormal immunological findings in serum (principal)
CPT/HCPCS: 99203

== ENCOUNTER 2024-08-04 15:53 | Outpatient (REF) | payer OTHER, SELFPAY ==
[2024-08-04 16:03] LABS: MANUAL DIFF FLAG NO
[2024-08-04 17:21] LABS: Basophils Percent Auto 0.4 % (0-2); Eosinophils Absolute Auto 0.1 X10*3/uL (0.0-0.4); Eosinophils Percent Auto 2.3 % (0-4); Hematocrit 38.4 % (37.0-47.0); Hemoglobin 12.5 g/dl (12.0-16.0); Imm Gran Abs Auto 0.01 X10*3/uL (0.00-0.03); Imm Gran Pct Auto 0.2 % (0.0-0.4); Lymphocytes Absolute Auto 2.1 X10*3/uL (1.2-4.9); Lymphocytes Percent Auto 43.8 % (20-40); Mean Corpuscular HGB Conc 32.6 g/dl (31.0-35.0); Mean Corpuscular Hemoglobin 26.2 pg (27.0-33.0); Mean Corpuscular Volume 80.5 fL (80.0-98.0); Mean Platelet Volume 12.2 fL (9.4-12.3); Monocytes Absolute Auto 0.5 X10*3/uL (0.1-1.2); Monocytes Percent Auto 11.1 % (2-11); Neutrophils Percent Auto 42.2 % (45-73); Platelet Count 245 X10*3/uL (160-400); Red Blood Count 4.77 X10*6/uL (4.20-5.50); Red Cell Distribution Width 14.5 % (11.0-16.0); White Blood Count 4.8 X10*3/uL (4.8-10.8)
[2024-08-04 18:04] LABS: Alanine Aminotransferase 21 U/L (0-31); Albumin Level 3.8 g/dL (3.5-5.0); Alkaline Phosphatase 66 U/L (39-117); Anion Gap 12 (12-20); Aspartate Amino Transferase 19 U/L (5-31); Bilirubin Total 0.4 mg/dL (0.0-1.0); Blood Urea Nitrogen 15 mg/dL (9-16); C Reactive Protein 0.47 mg/dL (< or = 0.50); Calcium 9.1 mg/dL (8.4-10.2); Carbon Dioxide 29 mmol/L (22-29); Chloride 106 mmol/L (96-108); Estimated Glomerular Filt Rate > 60; Glucose Random 102 mg/dL (60-115); Potassium 3.7 mmol/L (3.3-5.1); Sodium 143 mmol/L (135-145); Total Protein 7.2 g/dL (6.5-8.0)
[2024-08-04 18:49] LABS: Erythrocyte Sedimentation Rate 14 MM/HR (0-20)
--- OUTSIDE RECORDS SUMMARY | 2024-08-04 19:02 | XMS_ITS | Encounter Summary ---
Author Organization [facility] [place] [address] Care Team Providers Care Electric Range Servicer Name Role Phone Bridget Pak MD Primary Care Provider [phone] Reason for Visit * Reason Onset Date Comments UTI 07/06/2024 Abdominal Pain 07/06/2024 Encounter Details Date Type Department Care Team (Late st Contact Info) Description 07/06/2024 Nurse Triage Adult Medicine [address] [phone] Bridget Pak MD [address] [place] [address] UTI; Abdominal Pain Social History Tobacco Use Types Packs/Day Years Used Date Smoking Tobacco: Never Smokeless Tobacco: Never Alcohol Use Standard Drinks/Week Comments Not Currently 0 (1 standard drink = 0.6 oz pur e alcohol) Interpersonal Safety Answer Date Record ed Physical Abuse 07/02/2024 Verbal Abuse 07/02/2024 Comments No Sex and Gender Information Value Date Recorded Sex Assigned at Female 06/30/2024 12:00 PM EST Legal Sex Female 2:21 AM EST Gender Identity Female 06/30/2024 12:00 PM EST Sexual Orientation Not on file documented as of this encounter Progress Notes * Olivia Austin RN - 07/06/2024 4:46 PM EST Pt states she cannot come into the office tomorrow as she has another appointment she can't miss. An appointment was made for her to be seen in the office on 07/08/24 at 10:15 am with Vivi De La Torre she is in agreement with this plan. Reason for Disposition Age > 50 years Answer Assessment - Initial Assessment Questions 1. SYMPTOM: What's the main symptom you're concerned about? (e.g., frequency, incontinence) She is reporting burning with urination and intermittent abdominal pain for months. She is also reporting urinary frequency. She had an appointment in the office and had an EGD last week. She has a follow up with gastro next week. She is looking for a new CORPORATE TUTOR for an annual exam. Last was 5-10 yearsago. 2. ONSET: When did the symptoms start? 2-3 days ago 3. PAIN: Is there any pain? If Yes, ask: How bad is it? (Scale: 1-10; mild, moderate, severe) She rates the burning with urination as 7/10 4. CAUSE: What do you think is causing the symptoms? UTI 5. OTHER SYMPTOMS: Do you have any other symptoms? (e.g., blood in urine, fever, flank pain, painwith urination) Chronic back pain and pain with urination 6. : Is there any chance you are ? When was your last menstrual period? No. Pt is 58 Protocols used: Urinary Pghiodkb-O-OY, Urination Pain - Female-A-AH * Delfino Moura - 07/06/2024 4:21 PM EST Patient call requires triage: Symptoms patient is presenting: Patient called stating that she has been having abdominal pain , would like to speak to nurse to get advice on what to do , also having a burning sensation when urinating , How long has patient had these symptoms?: has been having it for a month or 2 For ALL patients calling to schedule any appointment (routine, sick visit, follow up, consult, etc.) in the outpatient setting please ask the following questions: Do you have fever of higher than 101, sore throat with difficulty swallowing or severe shortness ofbreath? no If YES to any of these above symptoms, send a message to triage and do not book. Red dot. If no, an audio or video visit should be booked. Have you had close contact with someone with Coronavirus in the last 14 days? no Have you traveled abroad? no Have you traveled recently to another state outside of [place], [place], [place], [place], [place], [place], [place]? no o If yes, did you quarantine for 14 days or have a negative covid test? no If yes to any of the above, patient is not to be scheduled in office until after 14 day quarantine or negative covid test. If pain or injury related was it due to an accident at work or from a motor vehicle accident? If yes, date of accident/Injury: No If yes, gather 3rd libertarian insurance information Third Green Party Information: not applicable PCP: Bridget Pak MD Payor: [facility] / Plan: [facility] SELF FUNDED HMO / Product Type: *No Product type* / ' documented in this encounter Plan of Treatment Upcoming Encounters Date Type Department Care Team (Late st Contact Info) Description 01/04/2025 9:30 AM EDT Consult Bariatric Surgery - [place] [address] [phone] Megan Shepherd PA 271 [facility] [place] [address] [place] [address] 03/15/2025 1:30 PM EDT Appointment Radiology Department - [address] [address] documented as of this encounter Visit Diagnoses Not on filedocumented in this encounter Care Teams Electric Range Servicer Relationship Specialty Start Date End Date Bridget Pak MD [address] [place] [id number] PCP - General 02/19/05 documented as of this encounter
--- OUTSIDE RECORDS SUMMARY | 2024-08-04 19:02 | XMS_ITS | Encounter Summary ---
Author Organization [facility] Address [address] [place] [address] Care Team Providers Care Acid Conditioner Name Role Phone Bridget Pak MD Primary Care Provider [phone] Encounter Details Date Type Department Care Team (Late Contact Info) Description 07/07/2024 Telephone Gastroenterology - [place] 175 [facility] 175 [facility] [address] [place] [phone] Iris Gonzalez MA Social History Tobacco Use Types Packs/Day Years [...] as of this encounter Progress Notes * Iris Gonzalez MA - 07/07/2024 10:56 AM EST Called patient left Vm with positive results number to call office back. documented in this encounter Plan of Treatment Upcoming Encounters Date Type Department Care Team (Late Contact Info) Description 01/04/2025 9:30 AM EDT Consult Bariatric Surgery - [place] 175 [facility] [address] [place] [phone] Megan Shepherd PA [address] [address] 03/15/2025 1:30 PM EDT Appointment Radiology Department - [address] [address] documented as of this encounter Visit Diagnoses Not on filedocumented in this encounter Care Teams Acid Conditioner Relationship Specialty Start Date End Date Bridget Pak MD [address] [place] [id number] PCP - General 02/19/05 documented as of this encounter
--- OUTSIDE RECORDS SUMMARY | 2024-08-04 19:02 | XMS_ITS | Encounter Summary ---
Author Organization [facility] Address [address] [place] [address] Care Team Providers Care Cash Management Associate Name Role Phone Bridget Pak MD Primary Care Provider [phone] Reason for Referral * Consultation (Routine) - Authorized Specialty Diagnoses / Procedures Referred By Contginny t Referred To Contact Obstetrics and Gynecology Diagnoses Vagina itching Bridget Pak MD [address] [place] [phone] Phone: tel: fax: Hemant Fuentes MD [address] [place] [phone] Phone: tel: Referral ID Status Reason Start Date Expiration Date Visits Requested Visits Authorized [id number] Authorized Specialty Services Required 07/08/2024 07/08/2025 1 1 Reason for Visit * Reason Comments UTI Hypertension Hyperlipidemia Encounter Details Date Type Department Care Team (Late st Contact Info) Description 07/08/2024 1:00 PM EST Office Visit Adult Medicine [address] [phone] Bridget Pak MD [address] [place] [address] Dysuria (Primary Dx); Primary hypertension; Gastroesophageal reflux disease without esophagitis; Prediabetes; Other hyperlipidemia; Vagina itching Social History Tobacco Use Types Packs/Day Years Used Date Smoking Tobacco: Never Smokeless Tobacco: Never Tobacco Cessation:Counseling Given: Not Answered Alcohol Use Standard Drinks/Week Comments Not Currently [...] on file documented as of this encounter Last Filed Vital Signs Vital Sign Reading Time Taken Comments Blood Pressure 136/82 07/08/2024 1:15 PM EST Pulse 89 07/08/2024 1:15 PM EST Temperature 36.4 ??C (97.5 ??F) 07/08/2024 1:15 PM ES T Respiratory Rate 16 07/08/2024 1:15 PM EST Oxygen Saturation 98% 07/08/2024 1:15 PM EST Inhaled Oxygen Concentration - - Weight 100 kg (221 lb 4.8 oz) 07/08/2024 1:15 PM EST Height 172.7 cm (5' 8 ) 07/08/2024 1:15 PM EST Body Mass Index 33.65 07/08/2024 1:15 PM EST documented in this encounter Progress Notes * Bridget Pak MD - 07/08/2024 1:00 PM EST Chief Complaint: Chief Complaint Patient presents with UTI Hypertension Hyperlipidemia IDENTIFIER: Tatyana Ovalle is a 58 y.o. old female HPI She comes for evaluation accompanied by her daughter. She has rheumatoid arthritis and continues onmethotrexate and Humira and recently was found to still be positive for H. pylori, she will be starting on Biaxin and Flagyl. She has hypertension, GE reflux, elevated cholesterol and continues as well on losartan, omeprazole, Lipitor and albuterol inhalers. She is questioning a urinary tract infection, she is not having frequency but is having an urination dysuria. She does not think she is voiding in small amounts than usual, not seeing any hematuria, no back pain or fevers. She continues with low sugar diet for prediabetes. ROS: General: No malaise, significant weight loss or fever Respiratory: No cough, wheezing or shortness of breath Cardiovascular: No chest pain, palpitations, no orthopnea as noted Past Medical History: Patient Active Problem List Diagnosis Date Noted Cholestasis of 05/04/2024 Spinal stenosis 09/08/2023 Prediabetes 07/18/2023 Obesity (BMI 30.0-34.9) 07/05/2022 Hyperlipidemia 05/22/2022 COVID-19 virus infection 11/05/2021 Oral herpes 07/12/2021 Flat foot 11/03/2020 GERD (gastroesophageal reflux disease) 06/29/2020 Migraines 06/29/2020 Lactose intolerance 10/16/2018 Vitamin D deficiency 09/28/2015 RA (rheumatoid arthritis) (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 Surgical History: Past Surgical History: Procedure Laterality Date BREAST REDUCTION Bilateral PROCEDURE: ND BREAST REDUCTION SECTION PROCEDURE: HISTORICAL DELIVERY COLONOSCOPY 04/23/2017 PROCEDURE: HISTORICAL COLONOSCOPY; COMMENT: negative HYSTERECTOMY 09/2012 PROCEDURE: HISTORICAL HYSTERECTOMY; COMMENT: supracervical for fibroid and bleeding OTHER SURGICAL HISTORY 01/2023 PROCEDURE: MAMMOGRAM OTHER SURGICAL HISTORY 06/2013 PROCEDURE: ND ARTHRODESIS POSTERIOR INTERBODY 1 NTRSPC LUMBAR OTHER SURGICAL HISTORY 2010 PROCEDURE: ND ARTHRD ANT INTERBODY MIN DSC CRV BELOW C2 Family History: Family History Problem Relation Name Age of Onset Heart failure Mother HTN, RA Hypertension Father MVA Hypertension Sister Cirrhosis Brother +hepatitis Hypertension Brother x 3 Heart failure Aunt 2 aunts Breast cancer Aunt 2 m 40s 50.00 maternal Ovarian cancer Aunt maternal unsure if ovar age? Heart failure Uncle Social History: Social History Tobacco Use Smoking status: Never Smokeless tobacco: Never Substance Use Topics Alcohol use: Not Currently Allergies: Other and Prednisone Medications: Outpatient Medications Marked as Taking for the 07/08/24 encounter (Office Visit) with Bridget Pak MD Medication Sig Dispense Refill adalimumab (HUMIRA) 40 mg/0.8 mL syringe Inject 0.8 mL (40 mg total) under the skin every 14 (fourteen) days. amoxicillin (AMOXIL) 500 mg capsule Take 1 capsule (500 mg total) by mouth 2 (two) times a day for 14 days. 28 each 0 atorvastatin (LIPITOR) 10 mg tablet Take 1 tablet (10 mg total) by mouth. clarithromycin (BIAXIN) 500 mg tablet Take 1 tablet (500 mg total) by mouth 2 (two) times a day for14 days. 28 each 0 fluticasone propionate (FLONASE) 50 mcg/actuation nasal spray Administer 2 sprays into affected nostril(s). folic acid (FOLVITE) 1 mg tablet Take 1 tablet (1,000 mcg total) by mouth 1 (one) time each day. hydroCHLOROthiazide (HYDRODIURIL) 25 mg tablet Take 1 tablet (25 mg total) by mouth 1 (one) time each day. loratadine (CLARITIN) 10 mg tablet Take 1 tablet (10 mg total) by mouth 1 (one) time each day. losartan (COZAAR) 100 mg tablet Take 1 tablet (100 mg total) by mouth at bedtime. Medication Discontinued/Reordered: There are no discontinued medications. Vitals: Blood pressure 136/82, pulse 89, temperature 36.4 ??C (97.5 ??F), temperature source Temporal, resp. rate 16, height 1.727 m (68 ), weight 100 kg (221 lb 4.8 oz), SpO2 98%. Body mass index is 33.65 kg/m??.Plan is deferred until next visit Physical Exam: General: patient is in no acute distress. Neck supple without adenopathy, no thyromegaly. Lungs clear with auscultation. Heart: regular S1S2 without murmur, rub or gallop. No CVA tenderness. Abdomen soft, nontender, no masses or organomegaly. Bowel sounds normal active. Extremities without cyanosis, clubbing or edema. Labs: Urinalysis positive for blood, urine culture is sent Glycohemoglobin, lipid studies ordered Impression: 1. Dysuria 2. Primary hypertension 3. Gastroesophageal reflux disease without esophagitis 4. Prediabetes 5. Other hyperlipidemia 6. Vagina itching Assessment and Plan: She is questioning also vaginal itching and needs a routine HAND SCRAPER exam, referral was placed for this.Urine culture is sent and if positive will be started on antibiotics. She will be starting on the Biaxin and Flagyl through GI for the H. pylori. She will have glycohemoglobin testing and lipid studies given the elevated cholesterol and prediabetes. Reflux remains controlled with the omeprazole andshe is continue on Lipitor for her cholesterol, continue with blood pressure control with hydrochlorothiazide and losartan. Myself and my colleagues have maintained a long-term, longitudinal relationship with this patient, overseeing care of chronic conditions including hypertension, prediabetes, elevated cholesterol, GE reflux. This care relationship has significantly influenced my decision making and treatment plans during today's encounter. documented in this encounter Plan of Treatment Upcoming Encounters Date Type Department Care Team (Late st Contact Info) Description 01/04/2025 9:30 AM EDT Consult Bariatric Surgery - [place] 175 [facility] 120 [place] [address] Megan Shepherd PA 271 [facility] [address] [place] [address] 03/15/2025 1:30 PM EDT Appointment Radiology Department - [address] [address] Scheduled Orders Name Type Priority Associated Diagnoses Orde r Schedule Culture urine Microbiology Routine Dysuria Ordered: 07/08/2024 Scheduled Referrals Name Type Priority Associated Diagnoses Order Schedule Ambulatory referral to Obstetrics / Gynecology Outpatient Referral Routine Vagina itching 1 Occurrences starting 07/08/2024 until 07/08/2025 documented as of this encounter Procedures Procedure Name Priority Date/Time Associated Diagnosis Comments POC URINE NON-AUTO W/O MICRO Routine 07/08/2024 2:33 PM EST Dysuria CULTURE URINE Routine 07/08/2024 1:42 PM EST Dysuria documented in this encounter Results * (ABNORMAL) POC Urine Non-Auto W/O Micro (07/08/2024 2:33 PM EST) GLUCOSE POC Negative Negative, Trace mg/dL Leukocytes UA POC Negative Negative Nitrite UA POC Negative Urobilinogen UA POC 0.2 E.U./dL mg/dL Protein UA POC Negative Negative PH UA POC 5 Blood UA POC 2+(A) Negative SPECIFIC GRAVITY POC 1.015 Ketones UA POC Negative Negative Bilirubin UA POC Negative Negative Urine Urine specimen obtained by clean catch procedure / Unknown 07/08/2024 2:33 PM EST Bridget Pak MD POINT OF CARE TEST ENTER/EDIT OR DERABLES Final Result * Hemoglobin A1c (07/08/2024 1:48 PM EST) [facility] Hemoglobin A1C 5.8 <6.5 % LAB CHEMISTRY METHOD 07/08/2024 8:13 PM EST [facility] Mean Bld Glu Estim. 120 mg/dL LAB CHEMISTRY METHOD 07/08/2024 8:13 PM EST [facility] Blood Venous blood specimen / Unknown Venipuncture / Unknown 07/08/2024 1:48 PM EST 07/08/2024 1:48 PM EST Bridget Pak MD LAB BLOOD ORDERABLES Final Resul t [facility] [address] [place] [address], [place] [phone] * (ABNORMAL) Lipid panel with reflex to direct LDL (07/08/2024 1:48 PM EST) [facility] Cholesterol 226(H) 0 - 200 mg/dL LAB CHEMISTRY METHOD 07/08/2024 4:38 PM EST [facility] Triglycerides 72 0 - 150 mg/dL LAB CHEMISTRY METHOD 07/08/2024 4:38 PM EST [facility] HDL 81 >=40 mg/dL LAB CHEMISTRY METHOD 07/08/2024 4:38 PM EST [facility] LDL Calculated 131(H) 0 - 100 mg/dL LAB CHEMISTRY METHOD 07/08/2024 4:38 PM EST [facility] VLDL Cholesterol [place] 14.4 mg/dL LAB CHEMISTRY METHOD 07/08/2024 4:38 PM EST [facility] Non HDL Chol. (LDL+VLDL) 145(H) <145 mg/dL LAB CHEMISTRY METHOD 07/08/2024 4:38 PM [facility] Chol/HDL Ratio 2.8 0.0 - 4.4 LAB CHEMISTRY METHOD 07/08/2024 4:38 PM [facility] Blood Venous blood specimen / Unknown Venipuncture / Unknown 07/08/2024 1:48 PM EST 07/08/2024 1:48 PM EST us Bridget Pak MD LAB BLOOD ORDERABLES Final Resul t Performing Organization Address City/[facility]/ZIP Co de Phone Number [facility] [address] [place] [address], [place] [phone] * Culture urine (07/08/2024 1:42 PM EST) Culture, Urine No growth 07/09/2024 1:20 PM [facility] Urine Urine specimen obtained by clean catch procedure / Unknown Non-blood Collection / Unknown 07/08/2024 1:42 PM EST 07/08/2024 1:42 PM EST us Bridget Pak MD LAB MICROBIOLOGY - GENERAL ORDER DAVIS Final Result Performing Organization Address City/[facility]/ZIP Co de Phone Number [facility] [address] [place] [address], [place] [phone] documented in this encounter Visit Diagnoses Diagnosis Dysuria- Primary Primary hypertension Unspecified essential hypertension Gastroesophageal reflux disease without esophagitis Esophageal reflux Prediabetes Other abnormal glucose Other hyperlipidemia Vagina itching Pruritus of genital organs Encounter for screening mammogram for breast cancer documented in this encounter Care Teams Cash Management Associate Relationship Specialty Start Date End Date Bridget Pak MD [address] [place] [id number] PCP - General 02/19/05 documented as of this encounter
--- OUTSIDE RECORDS SUMMARY | 2024-08-04 19:03 | XMS_ITS | Clinical Summary ---
Author Organization [facility] [address] [place] [address] [place] [phone] Phone Care Team Providers Care Insurance Advisor Name Role Phone Bridget Pak MD Primary Care Provider Allergies Active Allergy Reactions Criticality Noted Date Comments Other 11/26/2010 Seasonal allergies Other Reaction(s): Runny Nose/Rhinitis Prednisone 07/05/2022 Medications atorvastatin (LIPITOR) 10 mg tablet Take 1 tablet (10 mg total) by mouth. 12/10/19 24 Active cyclobenzaprin e (FLEXERIL) 10 mg tablet TAKE 1/2 TO 1 TAB ORALLY BEDTIME NEEDED FOR MUSCLE SPASM 05/19/20 23 Active fluticasone propionate (FLONASE) 50 mcg/actuation nasal spray Administer 2 sprays into affected nostril(s). 08/24/19 20 Active folic acid (FOLVITE) 1 mg tablet Take 1 tablet (1,000 mcg total) by mouth 1 (one) time each day. 05/13/20 22 Active hydroCHLOROthi azide (HYDRODIURIL) 25 mg tablet Take 1 tablet (25 mg total) by mouth 1 (one) time each day. 11/17/19 24 Active loratadine (CLARITIN) 10 mg tablet Take 1 tablet (10 mg total) by mouth 1 (one) time each day. 12/17/19 24 Active losartan (COZAAR) 100 mg tablet Take 1 tablet (100 mg total) by mouth at bedtime. 11/07/19 24 Active methotrexate 2.5 mg tablet Take 6 tablets (15 mg total) by mouth 1 (one) time per week 12/17/19 24 Active albuterol HFA (PROAIR HFA ; PROVENTIL HFA ; VENTOLIN HFA) 90 mcg/actuation inhaler Inhale 2 puffs by mouth. 10/21/19 24 Active adalimumab (HUMIRA) 40 mg/0.8 mL syringe Inject 0.8 mL (40 mg total) under the skin every 14 (fourteen) days. Active omeprazole (PriLOSEC) [address] capsule Take 1 capsule (40 mg total) by mouth 2 (two) times a day. Do not crush or chew. 180 each 07/15/19 25 025 Active amoxicillin (AMOXIL) 500 mg capsule Take 1 capsule (500 mg total) by mouth 2 (two) times a day for 14 days. 28 each 07/06/19 25 025 clarithromycin (BIAXIN) 500 mg tablet Take 1 tablet (500 mg total) by mouth 2 (two) times a day for 10 days. 20 each 07/06/19 25 025 Discontinued(Do se adjustment) metroNIDAZOLE (FLAGYL) 500 mg tablet Take 1 tablet (500 mg total) by mouth 2 (two) times a day for 14 days. Do not use mouth wash or consume alcohol until 48 hours after last dose 28 each 07/06/19 25 025 omeprazole (PriLOSEC) [address] capsule Take 1 capsule (40 mg total) by mouth 2 (two) times a day for 14 days. Do not crush or chew. 28 each 07/06/19 25 025 Discontinued clarithromycin (BIAXIN) 500 mg tablet Take 1 tablet (500 mg total) by mouth 2 (two) times a day for 14 days. 28 each 07/06/19 25 025 Active Problems Problem Noted Date Diagnosed Date Cholestasis of 05/04/2024 Spinal stenosis 09/08/2023 Overview (03/03/2024): Severe spinal stenosis L3-L5 Prediabetes 07/18/2023 Obesity (BMI 30.0-34.9) 07/05/2022 Hyperlipidemia 05/22/2022 COVID-19 virus infection 11/05/2021 Overview (03/03/2024): 6.1.22 Oral herpes 07/12/2021 Flat foot 11/03/2020 GERD (gastroesophageal reflux disease) Migraines 06/29/2020 Lactose intolerance 10/16/2018 Vitamin D deficiency 09/28/2015 RA (rheumatoid arthritis) 01/17/2015 Overview (03/03/2024): Onset 2013 Seronegative RA with predominant involvement of feet , ankles and knees 02/14 Methotrexate started Lumbar disc herniation with radiculopathy 2010 Overview (03/03/2024): MRI 07/23/10: L3-L4 herniation without nerve root impingement L4-5 decompression 07/16, residual toe numbness on R Osteoarthritis 05/18/2009 Allergic rhinitis 01/26/2009 Hypertension 03/23/2007 Disorder of gallbladder 03/23/2007 Overview (03/03/2024): O update Cervical radiculopathy 06/05/2005 Overview (03/03/2024): CERVICAL OSTEOPHYTES, C3-C4 disc herniation Cervical decompression and fusion C5-7 12/10 IMO update 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 Overview (03/03/2024): may have had BCG NEGATIVE IGRA TESTING [facility] update Encounters Date Type Department Care Team Description 07/08/2024 1:00 PM EST Office Visit [address] [phone] Bridget Pak MD Dysuria (Primary Dx); Primary hypertension; Gastroesophageal reflux disease without esophagitis; Prediabetes; Other hyperlipidemia; Vagina itching 07/07/2024 Telephone Gastroenterology - [place] [address] [facility] [address] [facility] [address] [place] [address] Iris Gonzalez MA 07/06/2024 Nurse Triage Adult Medicine [address] [phone] Bridget Pak MD UTI; Abdominal Pain 07/02/2024 2:28 PM EST Anesthesia Event [facility] Endoscopy [address] [place] [phone] Dirk Crisostomo DO Pierce, Trudy A, LYUBOV 07/02/2024 1:36 PM EST - 07/02/2024 11:59 PM EST Hospital Encounter [facility] Endoscopy [address] [place] [phone] Abdiaziz Ramirez MD Epigastric abdominal pain Discharge Disposition: Home or Self Care 06/30/2024 8:00 AM EST Office Visit Gastroenterology [facility] [address] [facility] [address] [facility] [address] [place] [address] Keturah Potts NP Epigastric abdominal pain (Primary Dx); History of Helicobacter pylori infection; Lactose intolerance 06/30/2024 Telephone Gastroenterology [facility] [address] [facility] [address] [facility] [address] [place] [address] Keturah Potts NP from Last 3 Months Immunizations Name Administration Dates Next Due H1N1 Inj Preservative Free 05/18/2009 Influenza Quadravalent, MDCK , 0.5ml, preservative free (Flucelvax) 6mo and older 02/04/2023,02/19/2022 Influenza Quadravalent, MDCK , 0.5ml, with preservative (Flucelvax) 6mo and older 03/08/2018,04/13/2017 Influenza trivalent, 0.5mL, preservative free (Fluarix; FluLaval; Fluzone) ages 6mo and older (Afluria) 3 years and older 02/04/2023 Influenza trivalent, with pr eservative (Fluzone; Afluria) 6mo and older 03/16/2021,02/07/2020,02/23/2016,03/05,03/03/2014,03/14/2013,02/23/2012 ,02/19/2011,04/06/2010,02/18/2009,06/2006,04/09/2005 Moderna Covid-19 Bivalent, O riginal + Ba.1 (Non-US Tradename Spikevax Bivalent) 12/11/2022,03/11/2022 Moderna SARS-CoV-2 COVID-19, mRNA, LNP-S, preservative free 09/20/2020 Pneumococcal conjugate 13 va lent (Prevnar 13, PCV13) 2mo and older 03/30/2015 Pneumococcal polysaccharide 23 valent (Pneumovax 23) 2yo and older 07/20/2015 Td Tetanus diptheria (Tdvax) 7yo and older 11/11/2022,04/09/2005 Tdap Tetanus diptheria acell ular pertussis (Boostrix; Adacel) 7yo and older 07/03/2012 Zoster recombinant (Shingrix ) 19yo and older 12/05/2021,07/19/2021 Surgical History Surgery Date Site/Laterality Comments OTHER SURGICAL HISTORY 01/2023 PROCEDURE: MAMMOGRAM SECTION PROCEDURE: HISTORICAL DELIVERY HYSTERECTOMY 09/2012 PROCEDURE: HISTORICAL HYSTERECTOMY; COMMENT: supracervical for fibroid and bleeding OTHER SURGICAL HISTORY 06/2013 PROCEDURE: IN ARTHRODESIS POSTERIOR INTERBODY 1 NTRSPC LUMBAR OTHER SURGICAL HISTORY 2010 PROCEDURE: IN ARTHRD ANT INTERBODY MIN DSC CRV BELOW C2 COLONOSCOPY 04/23/2017 PROCEDURE: HISTORICAL COLONOSCOPY; COMMENT: negative BREAST REDUCTION Bilateral PROCEDURE: IN BREAST REDUCTION Medical History Medical History Date Comments 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 06/05/2005 DX:Tube rculin test reaction; COMMENT: may have had BCG Brachial neuritis or radiculitis NOS 06/05/2005 DX:Brachial neuritis or radiculitis NOS; COMMENT: CERVICAL OSTEOPHYTES Spinal stenosis in cervical region 06/05/2005 DX:Spinal stenosis in cervical region Other plastic surgery for unacceptable cosmetic appearance 06/05/2005 DX:Other plastic surg lola for unacceptable cosmetic appearance Unspecified disorder of gallbladder 03/23/2007 DX:Unspecified disorder of gallbladder Essential hypertension, benign 03/23/2007 D X:Essential hypertension, benign COVID-19 virus infection 11/05/2021 DX:COVI D-19 virus infection; COMMENT: 6.1.22 Spinal stenosis 09/08/2023 DX:Spinal stenos is; COMMENT: Severe spinal stenosis L3-L5 Family History Medical History Relation Name Comments Heart failure Aunt 1 2 aunts Breast cancer Aunt 2 2 m 40s maternal Ovarian cancer Aunt 3 maternal unsure if ovar ag e? Cirrhosis Brother 1 +hepatitis Hypertension Brother 2 x 3 Hypertension Father MVA Heart failure Mother HTN, RA Hypertension Sister Heart failure Uncle Relation Name Status Comments Aunt 1 Aunt 2 2 m 40s Aunt 3 maternal unsure if ovar Brother 1 Brother 2 x 3 Alive Father Mother Sister Alive Uncle Social History Tobacco Use Types Packs/Day Years [...] PM EST Sexual Orientation Not on file Obstetrics History Last Filed Vital Signs Vital Sign Reading [...] Mass Index 33.65 07/08/2024 1:15 PM EST Plan of Treatment Upcoming Encounters Date Type Department Care Team (Late st Contact Info) Description 01/04/2025 9:30 AM EDT Consult Bariatric Surgery - [place] [address] [facility] [address] [place] [phone] Megan Shepherd PA [address] [facility] [address] [place] [address] 03/15/2025 1:30 PM EDT Appointment Radiology Department - [place] [address] [place] [phone] Health Maintenance Due Date Last Done Comments Hepatitis B Vaccines (1 of 3 - 19+ 3-dose series) 1984 Cervical Cancer Screening: HPV 1986 Pneumococcal Vaccine: 50+ Years (3 of 3 - PCV20 or PCV21) 07/20/2020 07/20/2015, 03/30/2015, 06/11/2013 Pneumococcal Vaccine: Pediatrics (0 to 5 Years) and At-Risk Patients (6 to 64 Years) (3 of 3 - PCV20 or PCV21) 07/20/2020 07/20/2015, 03/30/2015, 06/11/2013 Depression Screening 05/11/2022 Social Influencers of Health Screening 05/11/2022 Hypertension/CHF/CAD Annual BMP Blood Test 12/16/2024 12/17/2023, 12/17/2023 Breast Cancer Screening 03/02/2025 03/02/20 24, 03/02/2024, 02/19/2023, Additional history exists Colorectal Cancer Screening: Colonoscopy 04/23/2027 04/23/2017, 04/23/2017, 04/23/2017 Cholesterol Screening (Lipid Panel) 07/08/2029 07/08/2024, 11/11/2022, 11/11/2022 DTaP,Tdap,and Td Vaccines (4 - Td or Tdap) 11/11/2032 11/11/2022, 07/03/2012, 04/09/2005 HIV Screening Completed 01/02/2015 Hepatitis C Screening Completed 04/28/2017 Zoster Vaccines Completed 12/05/2021, 07/19/2021 COVID-19 Vaccine Completed 02/18/2024, 05/2023, 03/11/2022, Additional history exists Influenza Vaccine Completed 02/18/2024, , 02/04/2023, Additional history exists HIB Vaccines Aged Out No longer eligi ble based on patient's age to complete this topic HPV Vaccines Aged Out No longer eligi ble based on patient's age to complete this topic Hepatitis A Vaccines Aged Out No long er eligible based on patient's age to complete this topic IPV Vaccines Aged Out No longer eligi ble based on patient's age to complete this topic MMR Vaccines Aged Out No longer eligi ble based on patient's age to complete this topic Meningococcal ACWY Vaccine Aged Out N o longer eligible based on patient's age to complete this topic Meningococcal B Vacine Aged Out No lo nger eligible based on patient's age to complete this topic RSV Immunization Patients Under 20 months Aged Out No longer eligible based on patient's age to complete this topic Varicella Vaccines Aged Out No longer eligible based on patient's age to complete this topic Procedures Procedure Name Priority Date/Time Associated Diagnosis Comments POC URINE NON-AUTO W/O MICRO Routine 07/08/2024 2:33 PM EST Dysuria LIPID PANEL WITH REFLEX TO DIRECT LDL Routine 07/08/2024 1:48 PM EST Other hyperlipidemia HEMOGLOBIN A1C Routine 07/08/2024 1:48 PM EST Prediabetes CULTURE URINE Routine 07/08/2024 1:42 PM EST Dysuria EGD Routine 07/02/2024 2:42 PM EST Epigastric abdominal pain TISSUE EXAM Routine 07/02/2024 2:37 PM EST Epigastric abdominal pain OXYGEN THERAPY, ADULT Routine 07/02/2024 1:55 PM EST HELICOBACTER PYLORI BREATH TEST Routine 07/01/2024 1:42 PM EST Epigastric abdominal pain History of Helicobacter pylori infection SCREENING MAMMOGRAPHY BI 2-VIEW BREAST INC CAD Routine 03/02/2024 10:53 AM EDT Encounter for screening mammogram for malignant neoplasm of breast ANNUAL BMP BLOOD TEST Routine 12/17/2023 HEPATITIS C SCREENING Routine 04/28/2017 COLONOSCOPY Routine 04/23/2017 HIV SCREENING Routine 01/02/2015 from Last 3 Months or Most Recently Relevant to Health Maintenance Results * (ABNORMAL) POC Urine Non-Auto W/O [...] TEST ENTER/EDIT OR DERABLES Final Result * (ABNORMAL) Lipid panel with reflex to direct LDL (07/08/2024 1:48 PM EST) Pathologist [facility] Cholesterol 226(H) 0 - 200 mg/dL LAB CHEMISTRY METHOD 07/08/2024 4:38 PM [facility] Triglycerides 72 0 - 150 mg/dL LAB CHEMISTRY METHOD 07/08/2024 4:38 PM [facility] HDL 81 >=40 mg/dL LAB CHEMISTRY METHOD 07/08/2024 4:38 PM [facility] LDL Calculated 131(H) 0 - 100 mg/dL LAB CHEMISTRY METHOD 07/08/2024 4:38 PM [facility] VLDL Cholesterol [place] 14.4 mg/dL LAB CHEMISTRY METHOD 07/08/2024 4:38 PM [facility] Non HDL Chol. (LDL+VLDL) 145(H) <145 mg/dL LAB CHEMISTRY METHOD 07/08/2024 4:38 PM [facility] Chol/HDL Ratio 2.8 0.0 - 4.4 LAB CHEMISTRY METHOD 07/08/2024 4:38 PM [facility] Blood Venous blood specimen / Unknown Venipuncture / Unknown 07/08/2024 1:48 PM EST 07/08/2024 1:48 PM EST us Bridget Pak MD LAB BLOOD ORDERABLES Final Resul t Performing Organization Address City/[facility]/ZIP Co de Phone Number [facility] [address] [place] [address], [place] [phone] * Hemoglobin A1c (07/08/2024 1:48 PM EST) Hemoglobin A1C 5.8 <6.5 % LAB CHEMISTRY METHOD 07/08/2024 8:13 PM EST [facility] Mean Bld Glu Estim. 120 mg/dL LAB CHEMISTRY METHOD 07/08/2024 8:13 PM EST [facility] Blood Venous blood specimen / Unknown Venipuncture / Unknown 07/08/2024 1:48 PM EST 07/08/2024 1:48 PM EST us Bridget Pak MD LAB BLOOD ORDERABLES Final Resul t Performing Organization Address [facility]/ZIP Co de Phone Number [facility] [address] [place] [address], [place] [phone] * Culture urine (07/08/2024 1:42 PM EST) Pathologist [facility] Culture, Urine No growth 07/09/2024 1:20 PM EST [facility] Urine Urine specimen obtained by clean catch procedure / Unknown Non-blood Collection / Unknown 07/08/2024 1:42 PM EST 07/08/2024 1:42 PM EST us Bridget Pak MD LAB MICROBIOLOGY - GENERAL ORDER DAVIS Final Result Performing Organization Address City/[facility]/ZIP Co de Phone Number [facility] [address] [place] [address], [place] [phone] * EGD Anesthesia - MAC; [facility] ENDOSCOPY (07/02/2024 2:42 PM EST) Anatomical Region Laterality Modality Endoscopy 07/02/2024 2:29 PM EST Impressions 07/02/2024 2:41 PM EST - Normal examined duodenum. ? - Gastritis. Biopsied. ? - Normal esophagus. Recommendation: ?- Discharge patient to home. ? - Await pathology results. ? - Return to GI clinic as previously scheduled. Narrative 07/02/2024 2:41 PM EST [facility] GI Patient Name: Tatyana Ovalle Procedure Date: 07/02/2024 2:29 PM Date of : 1965 Age: 58 Gender: Female Note Status: Finalized Attending MD: Abdiaziz Ramirez MD, Procedure Date No Time: 07/02/2024 Procedure: ? Upper GI endoscopy Indications: ? Upper abdominal symptoms that persist despite an ? appropriate trial of therapy, Previously treated for ? Helicobacter pylori Providers: ? Abdiaziz Ramirez MD Referring MD: ?Abdiaziz Ramirez MD Medicines: ? Monitored Anesthesia Care Complications: ? No immediate complications. Estimated blood loss: ? Minimal. Estimated Blood Loss: ? Estimated blood loss was minimal. Procedure: ? Pre-Anesthesia Assessment: ? - Prior to the procedure, a History and Physical was ? performed, and patient medications and allergies were ? reviewed. The patient is competent. The risks and ? benefits of the procedure and the sedation options and ? risks were discussed with the patient. All questions ? were answered and informed consent was obtained. ? Patient identification and proposed procedure were ? verified by the physician, the nurse, the chief of police ? and the windows server support technician in the pre-procedure area in the ? procedure room. Mental Status Examination: alert and ? oriented. Airway Examination: normal oropharyngeal ? airway and neck mobility. Respiratory Examination: ? clear to auscultation. CV Examination: normal. ? Prophylactic Antibiotics: The patient does not require ? prophylactic antibiotics. Prior Anticoagulants: The ? patient has taken no anticoagulant or antiplatelet ? agents. ASA Grade Assessment: II - A patient with mild ? systemic disease. After reviewing the risks and ? benefits, the patient was deemed in satisfactory ? condition to undergo the procedure. The anesthesia ? plan was to use monitored anesthesia care (MAC). ? Immediately prior to administration of medications, ? the patient was re-assessed for adequacy to receive ? sedatives. The heart rate, respiratory rate, oxygen ? saturations, blood pressure, adequacy of pulmonary ? ventilation, and response to care were monitored ? throughout the procedure. The physical status of the ? patient was re-assessed after the procedure. ? After obtaining informed consent, the endoscope was ? passed under direct vision. Throughout the procedure, ? the patient's blood pressure, pulse, and oxygen ? saturations were monitored continuously. The Olympus ? Gastroscope was introduced through the mouth, and ? advanced to the second part of duodenum. The upper GI ? endoscopy was accomplished without difficulty. The ? patient tolerated the procedure well. Findings: ?The examined duodenum was normal. ? Patchy moderate inflammation characterized by ? congestion (edema) and erythema was found in the ? gastric body and in the gastric antrum. Biopsies were ? taken with a cold forceps for histology. Estimated ? blood loss was minimal. ? No other significant abnormalities were identified in ? a careful examination of the stomach. ? The esophagus was normal. Procedure Code(s): ? --- Professional --- ? 06929, Esophagogastroduodenoscopy, flexible, ? transoral; with biopsy, single or multiple Diagnosis Code(s): ? --- Professional --- ? K29.70, Gastritis, unspecified, without bleeding ? R19.8, Other specified symptoms and signs involving ? the digestive system and abdomen CPT copyright 2020 [employer]. All rights reserved. The codes documented in this report are preliminary and upon sharepoint architect review may be revised to meet current compliance requirements. Abdiaziz Ramirez MD 07/02/2024 2:41:33 PM This report has been signed electronically.Abdiaziz Ramirez MD Number of Addenda: 0 Note Initiated On: 07/02/2024 2:29 PM Scope In: Scope Out: ? Endoscopy Department at [facility] - [address] [place] [address], ? [place] [address] Procedure Note Abdiaziz Ramirez MD - 07/02/2024 [facility] GI Patient Name: Tatyana Ovalle Procedure Date: 07/02/2024 2:29 PM Date of : 1965 Age: 58 Gender: Female Note Status: Finalized Attending MD: Abdiaziz Ramirez MD, Procedure Date No Time: 07/02/2024 Procedure: Upper GI endoscopy Indications: Upper abdominal symptoms that persist despite an appropriate trial of therapy, Previously treatedfor Helicobacter pylori Providers: Abdiaziz Ramirez MD Referring MD: Abdiaziz Ramirez MD Medicines: Monitored Anesthesia Care Complications: No immediate complications. Estimated blood loss: Minimal. Estimated Blood Loss: Estimated blood loss was minimal. Procedure: Pre-Anesthesia Assessment: - Prior to the procedure, a History and Physicalwas performed, and patient medications and allergieswere reviewed. The patient is competent. The risks and benefits of the procedure and the sedation optionsand risks were discussed with the patient. Allquestions were answered and informed consent was obtained. Patient identification and proposed procedure were verified by the physician, the nurse, theanesthetist and the windows server support technician in the pre-procedure area in the procedure room. Mental Status Examination: alertand oriented. Airway Examination: normal oropharyngeal airway and neck mobility. Respiratory Examination: clear to auscultation. CV Examination: normal. Prophylactic Antibiotics: The patient does notrequire prophylactic antibiotics. Prior Anticoagulants: The patient has taken no anticoagulant or antiplatelet agents. ASA Grade Assessment: II - A patient withmild systemic disease. After reviewing the risks and benefits, the patient was deemed in satisfactory condition to undergo the procedure. The anesthesia plan was to use monitored anesthesia care (MAC). Immediately prior to administration of medications, the patient was re-assessed for adequacy to receive sedatives. The heart rate, respiratory rate, oxygen saturations, blood pressure, adequacy of pulmonary ventilation, and response to care were monitored throughout the procedure. The physical status ofthe patient was re-assessed after the procedure. After obtaining informed consent, the endoscope was passed under direct vision. Throughout theprocedure, the patient's blood pressure, pulse, and oxygen saturations were monitored continuously. TheOlympus Gastroscope was introduced through the mouth, and advanced to the second part of duodenum. The upperGI endoscopy was accomplished without difficulty. The patient tolerated the procedure well. Findings: The examined duodenum was normal. Patchy moderate inflammation characterized by congestion (edema) and erythema was found in the gastric body and in the gastric antrum. Biopsieswere taken with a cold forceps for histology. Estimated blood loss was minimal. No other significant abnormalities were identifiedin a careful examination of the stomach. The esophagus was normal. Procedure Code(s): --- Professional --- 58542, Esophagogastroduodenoscopy, flexible, transoral; with biopsy, single or multiple Diagnosis Code(s): --- Professional --- K29.70, Gastritis, unspecified, without bleeding R19.8, Other specified symptoms and signs involving the digestive system and abdomen CPT copyright 2020 [employer]. All rights reserved. The codes documented in this report are preliminary and upon sharepoint architect reviewmay be revised to meet current compliance requirements. Abdiaziz Ramirez MD 07/02/2024 2:41:33 PM This report has been signed electronically.Abdiaziz Ramirez MD Number of Addenda: 0 Note Initiated On: 07/02/2024 2:29 PM Scope In: Scope Out: Endoscopy Department at [facility] - [address] [place] [phone] IMPRESSION: - Normal examined duodenum. - Gastritis. Biopsied. - Normal esophagus. Recommendation: - Discharge patient to home. - Await pathology results. - Return to GI clinic as previously scheduled. us Abdiaziz Ramirez MD GI~PROCEDURE ORDERABLES Fin al Result * Tissue exam (07/02/2024 2:37 PM EST) Final Diagnosis A. Stomach, gastric biopsy: - Gastric antral mucosa with active chronic gastritis and focal intestinal metaplasia. - Helicobacter pylori organisms are morphologically identified. 07/05/2024 10:55 AM EST [facility] Gross Description A. Stomach, gastric biopsy: Labeled gastric stomach . Received in formalin are four irregular gray mucosal tissue fragments, ranging from 0.1 cm to 0.4 cm in greatest dimension, which are wrapped in paper and submitted in toto in one cassette, four pieces, multiple levels on one slide. SADIE 07/05/2024 10:55 AM [facility] Disclaimer Unless otherwise specified, all tissue is 10% NB formalin fixed and paraffin embedded. 07/05/2024 10:55 AM [facility] Tissue Stomach structure / Unknown 07/02/2024 2:37 PM EST 07/02/2024 3:11 PM EST Abdiaziz Ramirez MD LAB PATHOLOGY ORDERABLES Fi nal Result [facility] [address] [place] [address], * (ABNORMAL) Helicobacter pylori breath test (07/01/2024 1:42 PM EST) H Pylori Breath Test Positive( A) Negative LAB CHEMISTRY METHOD 07/02/2024 12:37 PM EST [facility] Breath Oral cavity structure / Unknown Non-blood Collection / Unknown 07/01/2024 1:42 PM EST 07/01/2024 1:42 PM EST us Keturah Potts DOUBLE NEEDLE OPERATOR LOCKSTITCH LAB BODY FLUIDS AND STOOLS CARRIE GLOVER Final Result [facility] ([facility] [address] [place] [address], * SCREENING MAMMOGRAPHY BI 2-VIEW BREAST INC CAD (03/02/2024 10:53 AM EDT) Anatomical Region Laterality Modality Radiographic Concha ging 02/19/2023 2:03 PM EDT Narrative 03/02/2024 7:50 PM EDT This is a summary report. The complete report is available in the patient's medical record. If you cannot access the medical record, please contact the sending organization for a detailed fax or copy. Exam: Screening mammogram Findings: Digital bilateral full-field screening mammography is performed with tomosynthesis and interpreted with the aid of computer-aided detection. ??Comparison is made with 02/19/2023 and as far back as 01/31/2020. ??History of bilateral reduction mammoplasty. Breast parenchyma is heterogeneously dense, which may obscure small masses. ??Postsurgical changes of bilateral reduction mammoplasty again noted. No new suspicious mass, architectural distortion, or suspicious calcifications. Impression: No mammographic evidence of malignancy. BI-RADS 2-benign [address] [address] Procedure Note Jana Esteves MD - 03/30/2024 This is a summary report. The complete report is available in thepatient's medical record. If you cannot access the medical record, pleasecontact the sending organization for a detailed fax or copy. Exam: Screening mammogram Findings: Digital bilateral full-field screening mammography is performedwith tomosynthesis and interpreted with the aid of computer-aideddetection. Comparison is made with 02/19/2023 and as far back as01/31/2020. History of bilateral reduction mammoplasty. Breast parenchyma is heterogeneously dense, which may obscure smallmasses. Postsurgical changes of bilateral reduction mammoplasty againnoted. No new suspicious mass, architectural distortion, or suspiciouscalcifications. Impression: No mammographic evidence of malignancy. BI-RADS 2-benign [facility] [address] [place], [place] [phone] Bridget Pak MD IMG XR PROCEDURES Final Result * Annual BMP Blood Test (12/17/2023) Pathologist [facility] Annual BMP Blood Test Abstracted [facility] Provider HEALTH MAINTENANCE Final Result * Hepatitis C Screening (04/28/2017) Pathologist [facility] Hepatitis C Screening Abstracted [facility] Provider HEALTH MAINTENANCE Final Result * Colonoscopy (04/23/2017) Pathologist [facility] Colonoscopy no interpretation , abstracted Anatomical Region Laterality Modality Other [facility] Provider HEALTH MAINTENANCE Final Result * HIV Screening (01/02/2015) [facility] HIV Screening Abstracted [facility] Provider HEALTH MAINTENANCE Final Result from Last 3 Months or Most Recently Relevant to Health Maintenance Insurance [facility] Care Teams Insurance Advisor Relationship Specialty Start Date End Date Bridget Pak MD [address] [place] [address] [phone] PCP - General 02/19/05
== END 2024-08-04 15:54 | disposition home or self-care (01) ==
LOC: HO.LAB 15:53
PROVIDERS: PCP Internal Medicine; Visit Provider Student in an Organized Health Care Education/Training Program
DX: M06.00 Rheumatoid arthritis without rheumatoid factor, unspecified site (principal); Z79.899 Other long term (current) drug therapy
CPT/HCPCS: 36415; 80053; 85025; 85652; 86140

== ENCOUNTER 2024-08-06 15:34 | Outpatient (AMB) | payer OTHER, SELFPAY ==
--- NOTE | 2024-08-06 15:40 | MHC.OFFVIS ---
Vital Signs 08/06/24 15:47 Height 5 ft 8 in Weight 218 lb 11.177 oz BMI 33.2 BP 140/100 H Blood Pressure Location Lt brachial Position Sitting Pulse 75 Pulse Source Pulse Oximeter Pulse Oximetry (%) 8 L Oxygen Delivery Method Room Air Intake Visit Reasons: RA Intake Note: Patient presents for RA. Allergies prednisone Allergy (Verified 08/06/24 15:43) Rash HPI Comments Details: Patient is a 58-year-old female with hypertension, hyperlipidemia, polyarticular osteoarthritis, GERD and seronegative rheumatoid arthritis here today for follow up. Interval History: Patient last seen 05/04/[address] Hyatt. At that time she was following up for her seronegative rheumatoid arthritis and was on methotrexate 15 mg weekly and folic acid 1 mg daily. She reported intermittent flare-ups affecting different joints including her knees and ankles with associated swelling and that methotrexate caused significant GI upset with abdominal pain and nausea. Because of this the methotrexate was discontinued and she was started on Hymiroz Patient received the Hymiroz but didn't start it because she was not comfortable with injecting but did not call the office. So she has not started it And her RA is in a flare currently Prolonged AM stiffness Rheumatologic History: Onset 2013 Seronegative RA with predominant involvement of feet , ankles and knees 02/14 Methotrexate started - 05/2024. Ineffective 06/2024. Hymiroz Current Rheumatology Medication(s): Hymiroz 40mg SC every 2 weeks (hasn't started) [facility] Medical History Screening examination for infectious disease Long-term use of immunosuppressant medication Osteoarthritis of lumbosacral spine Migraine GERD (gastroesophageal reflux disease) Osteoarthritis cervical spine Seronegative rheumatoid arthritis Surgical History S/P lumbar fusion Family History Maternal Aunt Breast cancer Mother Rheumatoid arthritis Hypertension Heart failure Social History Household Members: Spouse Housing: House Are you a primary home care physical therapist to a significant other at home: No Do you presently have visiting nurse or other home services: No 75 years or older and lives alone: No Alcohol intake: never Patient Tobacco Use Status: Never used Tobacco e-Cigarette/Vaping Use: Never Used service: No Current occupational status: employed 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Const Details: Review of Systems Constitutional: Denies fever, chills, weight loss ENT: Denies vision changes, eye pain or eye redness, dental caries, dry mouth GI: Denies nausea, vomiting, diarrhea, abdominal pain, change in BM Pulm: Denies SOB, SCHERER, hemoptysis, wheezing Cards: Denies chest pain, palpitations Skin: Denies Raynaud's, rash, nail changes, photosensitivity, CIRCLE CUTTING SAW OPERATOR: Denies headaches, weakness, paresthesias, recurrent falls MSK: as per HPI All other systems reviewed and are unremarkable except noted above Physical Exam Vital Signs: Last Vital Signs Pulse 75 08/06/24 15:47 BP 140/100 H 08/06/24 15:47 Pulse Ox 8 L 08/06/24 15:47 Oxygen Delivery Method Room Air 08/06/24 15:47 BMI result Body Mass Index 33.2 Vital signs reviewed Physical Examination CONSTITUITIONAL Patient alert and cooperative. Well appearing and in no apparent painful distress HEENT Conjunctiva and sclera clear. ?Pupils equal round and reactive to light. ?No lymphadenopathy. ? CHEST/RESPIRATORY SYSTEM Normal respiratory effort and able to speak in complete sentences. ?Clear to auscultation bilaterally. ?No crackles, rales, rhonchi, wheezes heard. CARDIAC SYSTEM Regular rate and rhythm. ?S1 and S2 heard no murmurs. ?Radial pulses intact bilaterally MSK Hands: ?Good scrap handler strength bilaterally. No deformities noted. ?No synovitis noted to the MCPs, PIPs or DIPs. ?No tenderness to palpation of these joints. Wrists: ?Full range of motion at the wrists without pain. ?No tenderness to palpation or synovitis noted to the wrists. Elbows: Full range of motion without pain. No tenderness, weakness, swelling, increased warmth or erythema. Shoulders: Full range of motion without pain. No tenderness, weakness, swelling, increased warmth or erythema. Hips: Full range of motion without pain. Hip bursa: No tenderness to palpation Knees: ?Full range of motion. ?No tenderness, swelling, increased warmth or erythema.?No effusion or crepitations Ankles: full ROM. Swelling and TTP bilaterally? Feet: ?Negative squeeze test. ?No tenderness to palpation or swelling of the MTPs. Tender points:?No tenderness to palpation of the bilateral trapezius, supraspinatus, greater trochanters, anterior costochondral junctions, bilateral gluteal areas, bilateral suboccipital muscle insertions SKIN Skin intact without rashes. Results Reviewed Results Reviewed: Laboratory Tests 08/04/24 16:01 WBC 4.8 RBC 4.77 Hgb 12.5 Hct 38.4 Plt Count 245 ESR 14 Sodium 143 Potassium 3.7 Chloride 106 Carbon Dioxide 29 BUN 15 Creatinine 0.94 AST 19 ALT 21 Alkaline Phosphatase 66 C-Reactive Protein 0.47 Infectious serologies 11/12/23 05/10/24 16:40 15:51 Hepatitis A IgM Ab Nonreactive Hep Bs Antigen Negative Hep Bs Antibody REACTIVE Hep B Core Total Ab Reactive Hepatitis C Ab (EIA) Nonreactive Hep B DNA copies/mL NOT DETECTED Hep B DNA (IU/mL) NOT DETECTED HIV 1&2 Ab/P24 Ag 4thGn Nonreactive TB Test (T-Spot) Com Negative Assessment & Plan Assessment & Plan (1) Seronegative rheumatoid arthritis: Comment: Onset 2013 Seronegative RA with predominant involvement of feet , ankles and knees 02/14 Methotrexate started Code(s): M06.00 - Rheumatoid arthritis without rheumatoid factor, unspecified site Category: Medical Plan: #Seronegative Rheumatoid Athritis Patient is a 58-year-old female with seronegative RA who presents for follow-up. She did not start her Hyrimoz was because she was concerned about injecting for the 1st time. We will schedule her a nursing visit for teaching. Plan - Hymiroz 40mg SC evrey 2 weeks - RTC 4 months - Labs before visit: CBC, CMP, ESR, CRP, hepatitis panel, T spot, hepatitis B quantitative (2) Long-term use of immunosuppressant medication: Code(s): Z79.899 - Other [facility] (current) drug therapy Category: Medical Plan: #Long-term Use of TNF Inhibitors: Hymiroz Discussed with the patient the benefits and risks of TNF inhibitors for the management of the rheumatic condition Benefits include reduce pain, maintenance of remission and reduction of flares as well as ?progression of the disease Risks include injection sites/infusion reactions, serious infections (such as bacterial infections, opportunistic infections), malignancy, delaminating syndromes, autoimmune phenomena, CHF exacerbations, palmar plantar psoriasis and cytopenias Recommended rotating injection sites, and holding medication during and for up to 1 week after resolution of a febrile illness or open skin wound (3) Hepatitis B core antibody positive: Comment: She is also antibody positive and so not likely active Code(s): R76.8 - Other specified abnormal immunological findings in serum Category: Medical Plan: #Hep B core Ab positive Seen by Infectious Disease 05/2024. Disease likely not active and no follow up labs were recommended Plan I spent 34 minutes reviewing the record and labs, taking a history, examining the patient, discussing the treatment plan and documenting in the medical record Orders: Orders Complete Blood Count Auto Diff 4 Months M06.00 - Rheumatoid arthritis without rheumatoid factor, unspecified site Comprehensive Met. Panel 4 Months M06.00 - Rheumatoid arthritis without rheumatoid factor, unspecified site C Reactive Protein 4 Months M06.00 - Rheumatoid arthritis without rheumatoid factor, unspecified site Hepatitis B Viral DNA Qn 4 Months M06.00 - Rheumatoid arthritis without rheumatoid factor, unspecified site Erythrocyte Sedimentation Rate 4 Months M06.00 - Rheumatoid arthritis without rheumatoid factor, unspecified site Hepatitis A,B,C Profile 4 Months M06.00 - Rheumatoid arthritis without rheumatoid factor, unspecified site T Spot TB 4 Months M06.00 - Rheumatoid arthritis without rheumatoid factor, unspecified site Coding Level of Care Code Est Pt Level 4 (26593) Complex EM visit Add On G2211 Diagnoses Seronegative rheumatoid arthritis M06.00 Long-term use of immunosuppressant medication Z79.899 Hepatitis B core antibody positive R76.8
[2024-08-06 15:47] VITALS: BP 140/100; PULSE 75; O2SAT 8; BMI 33.2
--- OUTSIDE RECORDS SUMMARY | 2024-08-06 17:04 | XMS_ITS | Clinical Summary ---
Author Organization [facility] [address] [place] [address] [place] [phone] Phone Care Team Providers Care Information Technology Analyst Name Role Phone Bridget Pak MD Primary [...] 14 days. 28 each 07/06/19 25 025 metroNIDAZOLE (FLAGYL) 500 mg tablet Take 1 [...] 03/23/2007 Disorder of gallbladder 03/23/2007 Overview (03/03/2024): [facility] update Cervical radiculopathy 06/05/2005 Overview (03/03/2024): CERVICAL OSTEOPHYTES, C3-C4 disc herniation Cervical decompression and fusion C5-7 12/10 [facility] update 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 Overview (03/03/2024): may have had BCG NEGATIVE IGRA TESTING [facility] update Encounters Date Type Department Care Team Description 07/08/2024 1:00 PM EST Office Visit Adult Medicine [address] [phone] Bridget Pak MD Dysuria (Primary Dx); Primary hypertension; Gastroesophageal reflux disease without esophagitis; Prediabetes; Other hyperlipidemia; Vagina itching 07/07/2024 Telephone Gastroenterology - [place] [address] [facility] 175 [facility] [address] [place] [address] Iris Gonzalez MA 07/06/2024 Nurse Triage Adult Medicine [address] [phone] Bridget Pak MD UTI; Abdominal Pain 07/02/2024 2:28 PM EST Anesthesia Event [facility] [address] [place] [phone] Dirk Crisostomo DO Pierce, Trudy A, CRNA 07/02/2024 1:36 PM EST - 07/02/2024 11:59 PM EST Hospital Encounter [facility] [address] [place] [phone] Abdiaziz Ramirez MD Epigastric abdominal pain Discharge Disposition: Home or Self Care 06/30/2024 8:00 AM EST Office Visit Gastroenterology - [place] [address] [facility] [address] [place] [address] Keturah Potts, DONTRELL Epigastric abdominal pain (Primary Dx); History of Helicobacter pylori infection; Lactose intolerance 06/30/2024 Telephone Gastroenterology [facility] [address] [facility] [address] [place] [address] Keturah Potts, DONTRELL from Last 3 Months Immunizations Name Administration [...] and bleeding OTHER SURGICAL HISTORY 06/2013 PROCEDURE: GA ARTHRODESIS POSTERIOR INTERBODY 1 NTRSPC LUMBAR OTHER SURGICAL HISTORY 2010 PROCEDURE: GA ARTHRD ANT INTERBODY MIN DSC CRV BELOW C2 COLONOSCOPY 04/23/2017 PROCEDURE: HISTORICAL COLONOSCOPY; COMMENT: negative BREAST REDUCTION Bilateral PROCEDURE: GA BREAST REDUCTION Medical History Medical History Date [...] infection 11/05/2021 DX:COVI D-19 virus infection; COMMENT: 6 Spinal stenosis 09/08/2023 DX:Spinal stenos is; COMMENT: [...] 9:30 AM EDT Consult Bariatric Surgery - [place] [address] [phone] Megan Shepherd PA [address] [facility] [address] [place] [address] 03/15/2025 1:30 PM EDT Appointment Radiology Department - [address] [phone] Health Maintenance Due Date Last Done Comments [...] procedure / Unknown 07/08/2024 2:33 PM EST us Bridget Pak MD POINT OF CARE TEST ENTER/EDIT OR DERABLES Final Result * (ABNORMAL) Lipid panel with reflex to direct LDL (07/08/2024 1:48 PM EST) Cholesterol 226(H) 0 - 200 mg/dL LAB CHEMISTRY METHOD 07/08/2024 4:38 PM EST [facility] Triglycerides 72 0 - 150 mg/dL LAB CHEMISTRY METHOD 07/08/2024 4:38 PM EST [facility] HDL 81 >=40 mg/dL LAB CHEMISTRY METHOD 07/08/2024 4:38 PM EST [facility] LDL Calculated 131(H) 0 - 100 mg/dL LAB CHEMISTRY METHOD 07/08/2024 4:38 PM EST [facility] VLDL Cholesterol [place] 14.4 mg/dL LAB CHEMISTRY METHOD 07/08/2024 4:38 PM EST [facility] Non HDL Chol. (LDL+VLDL) 145(H) <145 mg/dL LAB CHEMISTRY METHOD 07/08/2024 4:38 PM EST [facility] Chol/HDL Ratio 2.8 0.0 - 4.4 LAB CHEMISTRY METHOD 07/08/2024 4:38 PM EST [facility] Blood Venous blood specimen / Unknown Venipuncture / Unknown 07/08/2024 1:48 PM EST 07/08/2024 1:48 PM EST us Bridget Pak MD LAB BLOOD ORDERABLES Final Resul t [facility] [address] [place] [address], [place] [phone] * Hemoglobin A1c (07/08/2024 1:48 PM EST) Hemoglobin A1C 5.8 <6.5 % LAB CHEMISTRY METHOD 07/08/2024 8:13 PM EST [facility] Mean Bld Glu Estim. 120 mg/dL LAB CHEMISTRY METHOD 07/08/2024 8:13 PM EST [facility] Blood Venous blood specimen / Unknown Venipuncture / Unknown 07/08/2024 1:48 PM EST 07/08/2024 1:48 PM EST us Bridget Pak MD LAB BLOOD ORDERABLES Final Resul t Performing Organization Address City/[facility] Co de Phone Number [facility] [address] [place] [address], [place] [phone] * Culture urine (07/08/2024 1:42 PM EST) [facility] Culture, Urine No growth 07/09/2024 1:20 PM EST [facility] Urine Urine specimen obtained by clean catch procedure / Unknown Non-blood Collection / Unknown 07/08/2024 1:42 PM EST 07/08/2024 1:42 PM EST us Bridget Pak MD LAB MICROBIOLOGY - GENERAL ORDER DAVIS Final Result [facility] [address] [place] [address], [place] [phone] * EGD Anesthesia - [facility]; [facility] ENDOSCOPY (07/02/2024 2:42 PM EST) Anatomical Region Laterality Modality Endoscopy 07/02/2024 2:29 PM EST Impressions 07/02/2024 2:41 PM EST - Normal examined duodenum. ? - Gastritis. Biopsied. ? - Normal esophagus. Recommendation: ?- Discharge patient to home. ? - Await pathology results. ? - Return to GI clinic as previously scheduled. Narrative 07/02/2024 2:41 PM EST [facility] Patient Name: Tatyana Ovalle Procedure [...] verified by the physician, the nurse, the oem sales manager ? and the research and development technician in the pre-procedure area in the [...] Procedure Code(s): ? --- Professional --- ? 37896, Esophagogastroduodenoscopy, flexible, ? transoral; with biopsy, single or multiple Diagnosis Code(s): ? --- Professional --- ? K29.70, Gastritis, unspecified, without bleeding ? R19.8, Other specified symptoms and signs involving ? the digestive system and abdomen CPT copyright 2020 [employer]. All rights reserved. The codes documented in this report are preliminary and upon elastic cutter review may be revised to meet current compliance requirements. Abdiaziz Ramirez MD 07/02/2024 2:41:33 PM This report has been signed electronically.Abdiaziz Ramirez MD Number of Addenda: 0 Note Initiated On: 07/02/2024 2:29 PM Scope In: Scope Out: ? Endoscopy Department at [facility] - [address] [place] [address], ? [place] [address] Procedure Note Abdiaziz Ramirez MD - 07/02/2024 [facility] Patient Name: Tatyana Ovalle Procedure [...] the physician, the nurse, theanesthetist and the research and development technician in the pre-procedure area in the [...] was normal. Procedure Code(s): --- Professional --- 68243, Esophagogastroduodenoscopy, flexible, transoral; with biopsy, single or multiple Diagnosis Code(s): --- Professional --- K29.70, Gastritis, unspecified, without bleeding R19.8, Other specified symptoms and signs involving the digestive system and abdomen CPT copyright 2020 [employer]. All rights reserved. The codes documented in this report are preliminary and upon elastic cutter reviewmay be revised to meet current compliance requirements. Abdiaziz Ramirez MD 07/02/2024 2:41:33 PM This report has been signed electronically.Abdiaziz Ramirez MD Number of Addenda: 0 Note Initiated On: 07/02/2024 2:29 PM Scope In: Scope Out: Endoscopy Department at [facility] - [address] [place] [phone] IMPRESSION: - Normal examined duodenum. - Gastritis. [...] organisms are morphologically identified. 07/05/2024 10:55 AM [facility] Gross Description A. Stomach, gastric biopsy: Labeled gastric stomach . Received in formalin are four irregular gray mucosal tissue fragments, ranging from 0.1 cm to 0.4 cm in greatest dimension, which are wrapped in paper and submitted in toto in one cassette, four pieces, multiple levels on one slide. SADIE 07/05/2024 10:55 AM [facility] Disclaimer Unless otherwise specified, all tissue is 10% NB formalin fixed and paraffin embedded. 07/05/2024 10:55 AM [facility] Tissue Stomach structure / Unknown 07/02/2024 2:37 PM EST 07/02/2024 3:11 PM EST Abdiaziz Ramirez MD LAB PATHOLOGY ORDERABLES Fi nal Result [facility] [address] [place] [address], * (ABNORMAL) Helicobacter pylori breath test (07/01/2024 1:42 PM EST) H Pylori Breath Test Positive( A) Negative LAB CHEMISTRY METHOD 07/02/2024 12:37 PM EST [facility] Breath Oral cavity structure / Unknown Non-blood Collection / Unknown 07/01/2024 1:42 PM EST 07/01/2024 1:42 PM EST Keturah Potts NP LAB BODY FLUIDS AND STOOLS ORDE RABLES Final Result [facility] [address] [place] [address], * SCREENING MAMMOGRAPHY BI 2-VIEW BREAST INC [...] No mammographic evidence of malignancy. BI-RADS 2-benign [address] [address] Procedure Note Jana Esteves MD - 03/30/2024 [...] No mammographic evidence of malignancy. BI-RADS 2-benign [address] [address] Bridget Pak MD IMG XR PROCEDURES Final Result * Annual BMP Blood Test (12/17/2023) Pathologist [facility] Annual BMP Blood Test Abstracted Historical Provider HEALTH MAINTENANCE Final Result * Hepatitis C Screening (04/28/2017) Pathologist [facility] Hepatitis C Screening Abstracted Historical Provider HEALTH MAINTENANCE Final Result * Colonoscopy (04/23/2017) Pathologist [facility] Colonoscopy no interpretation , abstracted Anatomical Region Laterality Modality Other Historical Provider HEALTH MAINTENANCE Final Result * HIV Screening (01/02/2015) Pathologist [facility] HIV Screening Abstracted Historical Provider HEALTH MAINTENANCE Final Result from Last 3 Months or Most Recently Relevant to Health Maintenance Insurance [facility] Care Teams Information Technology Analyst Relationship Specialty Start Date End Date Bridget Pak MD [address] [place] [address] PCP - General 02/19/05
--- OUTSIDE RECORDS SUMMARY | 2024-08-06 17:04 | XMS_ITS | Encounter Summary ---
Author Organization [facility] Address [address] [place] [address] Care Team Providers Care Belt Worker Name Role Phone Bridget Pak MD Primary Care Provider [phone] Encounter Details Date Type Department Care Team (Late Contact Info) Description 07/07/2024 Telephone Gastroenterology - [place] 175 [facility] 175 [facility] [address] [place] [phone] Iris Gonzalez MA Social History Tobacco Use [...] 9:30 AM EDT Consult Bariatric Surgery - [place] 175 [facility] [address] [place] [phone] Megan Shepherd PA [address] [address] 03/15/2025 1:30 PM EDT Appointment Radiology Department - [address] [phone] documented as of this encounter Visit Diagnoses Not on filedocumented in this encounter Care Teams Belt Worker Relationship Specialty Start Date End Date Bridget Pak MD [address] [place] [id number] PCP - General 02/19/05 documented as of this encounter
--- OUTSIDE RECORDS SUMMARY | 2024-08-06 17:04 | XMS_ITS | Encounter Summary ---
Author Organization [facility] Address [address] [place] [address] Care Team Providers Care Gluing Crew Leader Name Role Phone Bridget Pak MD Primary Care Provider [phone] Reason for Referral * Consultation (Routine) - Authorized Specialty Diagnoses / Procedures Referred By Contginny t Referred To Contact Obstetrics and Gynecology Diagnoses Vagina itching Bridget Pak MD [address] [place] [address] Phone: tel: fax: Hemant Fuentes MD [address] [place] [phone] Phone: tel: Referral ID Status Reason Start Date Expiration Date Visits Requested Visits Authorized [id number] Authorized Specialty Services Required 07/08/2024 07/08/2025 1 1 Reason for Visit * Reason Comments UTI Hypertension Hyperlipidemia Encounter Details Date Type Department Care Team (Late st Contact Info) Description 07/08/2024 1:00 PM EST Office Visit Adult Medicine [address] [phone] Bridget Pak MD [address] [place] [address] Dysuria (Primary Dx); Primary hypertension; Gastroesophageal reflux [...] Vitamin D deficiency 09/28/2015 RA (rheumatoid arthritis) ([facility]) 01/17/2015 Lumbar disc herniation with radiculopathy 07/30/2010 Osteoarthritis 05/18/2009 Allergic rhinitis 01/26/2009 Hypertension 03/23/2007 Disorder of gallbladder 03/23/2007 Cervical radiculopathy 06/05/2005 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 Surgical History: Past Surgical History: Procedure Laterality Date BREAST REDUCTION Bilateral PROCEDURE: RI BREAST REDUCTION SECTION PROCEDURE: HISTORICAL DELIVERY COLONOSCOPY 04/23/2017 PROCEDURE: HISTORICAL COLONOSCOPY; COMMENT: negative HYSTERECTOMY 09/2012 PROCEDURE: HISTORICAL HYSTERECTOMY; COMMENT: supracervical for fibroid and bleeding OTHER SURGICAL HISTORY 01/2023 PROCEDURE: MAMMOGRAM OTHER SURGICAL HISTORY 06/2013 PROCEDURE: RI ARTHRODESIS POSTERIOR INTERBODY 1 NTRSPC LUMBAR OTHER SURGICAL HISTORY 2010 PROCEDURE: RI ARTHRD ANT INTERBODY MIN DSC CRV BELOW [...] also vaginal itching and needs a routine FORENSIC STRUCTURAL ENGINEER exam, referral was placed for this.Urine culture [...] 9:30 AM EDT Consult Bariatric Surgery - [place] 175 [facility] [address] [place] [address] Megan Shepherd PA [address] [facility] [address] [place] [address] 03/15/2025 1:30 PM EDT Appointment Radiology Department - [address] [phone] Scheduled Orders Name Type Priority Associated Diagnoses [...] * Hemoglobin A1c (07/08/2024 1:48 PM EST) [facility] [address] Hemoglobin A1C 5.8 <6.5 % LAB CHEMISTRY METHOD 07/08/2024 8:13 PM EST [facility] Mean Bld Glu Estim. 120 mg/dL LAB CHEMISTRY METHOD 07/08/2024 8:13 PM EST [facility] Blood Venous blood specimen / Unknown Venipuncture / Unknown 07/08/2024 1:48 PM EST 07/08/2024 1:48 PM EST Bridget Pak MD LAB BLOOD ORDERABLES Final Resul t [facility] [address] [place] [address], [place] [phone] * (ABNORMAL) Lipid panel with reflex to direct LDL (07/08/2024 1:48 PM EST) [facility] [address] Cholesterol 226(H) 0 - 200 mg/dL LAB CHEMISTRY METHOD 07/08/2024 4:38 PM EST [facility] Triglycerides 72 0 - 150 mg/dL LAB CHEMISTRY METHOD 07/08/2024 4:38 PM EST [facility] HDL 81 >=40 mg/dL LAB CHEMISTRY METHOD 07/08/2024 4:38 PM EST [facility] LDL Calculated 131(H) 0 - 100 mg/dL LAB CHEMISTRY METHOD 07/08/2024 4:38 PM EST [facility] VLDL Cholesterol Milton 14.4 mg/dL LAB CHEMISTRY METHOD 07/08/2024 4:38 PM EST [facility] Non HDL Chol. (LDL+VLDL) 145(H) <145 mg/dL LAB CHEMISTRY METHOD 07/08/2024 4:38 PM [facility] Chol/HDL Ratio 2.8 0.0 - 4.4 LAB CHEMISTRY METHOD 07/08/2024 4:38 PM [facility] Blood Venous blood specimen / Unknown Venipuncture / Unknown 07/08/2024 1:48 PM EST 07/08/2024 1:48 PM EST us Bridget Pak MD LAB BLOOD ORDERABLES Final Resul t Performing Organization Address City/[facility]/ZIP Co de Phone Number [facility] [address] [place] [address], [place] [phone] * Culture urine (07/08/2024 1:42 PM EST) Culture, Urine No growth 07/09/2024 1:20 PM [facility] Urine Urine specimen obtained by clean catch procedure / Unknown Non-blood Collection / Unknown 07/08/2024 1:42 PM EST 07/08/2024 1:42 PM EST us Bridget Pak MD LAB MICROBIOLOGY - GENERAL ORDER DAVIS Final Result Performing Organization Address City/[facility]/ZIP Co de Phone Number [facility] [address] [place] [address], [place] [phone] documented in this encounter Visit Diagnoses Diagnosis Dysuria- Primary Primary hypertension Unspecified essential hypertension Gastroesophageal reflux disease without esophagitis Esophageal reflux Prediabetes Other abnormal glucose Other hyperlipidemia Vagina itching Pruritus of genital organs Encounter for screening mammogram for breast cancer documented in this encounter Care Teams Gluing Crew Leader Relationship Specialty Start Date End Date Bridget Pak MD [address] [place] [phone] PCP - General 02/19/05 documented as of this encounter
== END 2024-08-06 16:29 | disposition home or self-care (01) ==
LOC: HO.RHE 15:34
PROVIDERS: PCP Internal Medicine; Visit Provider Student in an Organized Health Care Education/Training Program
DX: M06.00 Rheumatoid arthritis without rheumatoid factor, unspecified site (principal); Z79.899 Other long term (current) drug therapy; R76.8 Other specified abnormal immunological findings in serum
CPT/HCPCS: 99214

== ENCOUNTER 2024-12-22 15:34 | Outpatient (REF) | payer OTHER, SELFPAY ==
--- OUTSIDE RECORDS SUMMARY | 2024-12-22 15:49 | XMS_ITS | Clinical Summary ---
Author Organization [facility] [address] [place] [address] [place] [phone] Phone Care Team Providers Care Failure Analysis Engineer Name Role Phone Bridget Pak MD Primary Care Provider [phone] Allergies Active Allergy Reactions Criticality Noted Date Comments Other 11/26/2010 Seasonal allergies Other Reaction(s): Runny Nose/Rhinitis Prednisone 07/05/2022 Medications atorvastatin (LIPITOR) 10 mg tablet Take 1 tablet (10 mg total) by mouth. 4 Active cyclobenzaprine (FLEXERIL) 10 mg tablet TAKE 1/2 TO 1 TAB ORALLY BEDTIME NEEDED FOR MUSCLE SPASM 3 Active fluticasone propionate (FLONASE) 50 mcg/actuation nasal spray Administer 2 sprays into affected nostril(s). 0 Active folic acid (FOLVITE) 1 mg tablet Take 1 tablet (1,000 mcg total) by mouth 1 (one) time each day. 2 Active loratadine (CLARITIN) 10 mg tablet Take 1 tablet (10 mg total) by mouth 1 (one) time each day. 4 Active methotrexate 2.5 mg tablet Take 6 tablets (15 mg total) by mouth 1 (one) time per week 4 Active albuterol HFA (PROAIR HFA ; PROVENTIL HFA ; VENTOLIN HFA) 90 mcg/actuation inhaler Inhale 2 puffs by mouth. 4 Active adalimumab (HUMIRA) 40 mg/0.8 mL syringe Inject 0.8 mL (40 mg total) under the skin every 14 (fourteen) days. Active losartan (COZAAR) 100 mg tablet TAKE 1 TABLET BY MOUTH EVERY DAY IN THE EVENING 90 tablet 1 5 Active hydroCHLOROthia zide (HYDRODIURIL) 25 mg tablet TAKE 1 TABLET BY MOUTH EVERY DAY 90 tablet 1 5 Active Active Problems Problem Noted Date Diagnosed Date Cholestasis of 05/04/2024 Spinal stenosis 09/08/2023 Overview (03/03/2024): Severe spinal stenosis L3-L5 Prediabetes 07/18/2023 Obesity (BMI 30.0-34.9) 07/05/2022 Hyperlipidemia 05/22/2022 COVID-19 virus infection 11/05/2021 Overview (03/03/2024): 6.1.22 Oral herpes 07/12/2021 Flat foot 11/03/2020 GERD (gastroesophageal reflux disease) Migraines 06/29/2020 Lactose intolerance 10/16/2018 Vitamin D deficiency 09/28/2015 RA (rheumatoid arthritis) ([facility], [facility] V28) 01/17/2015 Overview (03/03/2024): Onset 2013 Seronegative RA with predominant involvement of feet , ankles and knees 02/14 Methotrexate started Lumbar disc herniation with radiculopathy 2010 Overview (03/03/2024): MRI 07/23/10: L3-L4 herniation without nerve root impingement L4-5 decompression 07/16, residual toe numbness on R Osteoarthritis 05/18/2009 Allergic rhinitis 01/26/2009 Hypertension 03/23/2007 Disorder of gallbladder 03/23/2007 Overview (03/03/2024): IMO update Cervical radiculopathy 06/05/2005 Overview (03/03/2024): CERVICAL OSTEOPHYTES, C3-C4 disc herniation Cervical decompression and fusion C5-7 12/10 IMO update 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 Overview (03/03/2024): may have had BCG NEGATIVE IGRA TESTING O update Immunizations Name Administration Dates Next Due H1N1 [...] and bleeding OTHER SURGICAL HISTORY 06/2013 PROCEDURE: [place] ARTHRODESIS POSTERIOR INTERBODY 1 NTRSPC LUMBAR OTHER SURGICAL HISTORY 2010 PROCEDURE: [place] ARTHRD ANT INTERBODY MIN DSC CRV BELOW C2 COLONOSCOPY 04/23/2017 PROCEDURE: HISTORICAL COLONOSCOPY; COMMENT: negative BREAST REDUCTION 1990s Bilateral PROCEDURE: NV BREAST REDUCTION Medical History Medical History Date [...] 89 07/08/2024 1:15 PM EST Temperature 36.4 C (97.5 F) 07/08/2024 1:15 PM EST Respiratory Rate 16 07/08/2024 1:15 PM EST [...] 9:30 AM EDT Consult Bariatric Surgery - [place] 175 [facility] [address] [place] [phone] Megan Shepherd PA 175 [facility] [address] [place] [address] 01/27/2025 3:30 PM EDT Office Visit Adult Medicine [facility] - [address] [phone] Vivi Khoury PA [address] [place] [address] 03/15/2025 1:30 PM EDT Appointment Radiology Department - [address] [phone] Health Maintenance Due Date Last Done Comments Hepatitis B Vaccines (1 of 3 - 19+ 3-dose series) 1984 Cervical Cancer Screening: HPV 1986 Pneumococcal Vaccine: 50+ Years (3 of 3 - PCV20 or PCV21) 07/20/2020 07/20/2015, 03/30/2015, 06/11/2013 Social Influencers of Health Screening 05/11/2022 Depression Screening 06/02/2024 COVID-19 Vaccine (7 - Moderna risk season) 2024 02/18/2024, 12/11/2022, 03/11/2022, Additional history exists Hypertension/CHF/CAD Annual BMP Blood Test 12/16/2024 12/17/2023, 12/17/2023 Influenza Vaccine (#1) 2025 4, 02/04/2023, 02/04/2023, Additional history exists Breast Cancer Screening 03/02/2025 03/02/20 24, 03/02/2024, 02/19/2023, Additional history exists Colorectal Cancer Screening: Colonoscopy 04/23/2027 04/23/2017, 04/23/2017, 04/23/2017 Cholesterol Screening (Lipid Panel) 07/08/2029 07/08/2024, 11/11/2022, 11/11/2022 DTaP,Tdap,and Td Vaccines (4 - Td or Tdap) 11/11/2032 11/11/2022, 07/03/2012, 04/09/2005 RSV Immunization Adult Patients (1 - 1-dose 75+ series) 2040 HIV Screening Completed 01/02/2015 Hepatitis C Screening Completed 04/28/2017 Zoster Vaccines Completed 12/05/2021, 07/19/2021 HIB Vaccines Aged Out No longer eligi [...] age to complete this topic Meningococcal B Vaccine Aged Out No l onger eligible based on patient's age to complete this topic RSV Immunization Patients Under 20 months Aged Out No longer eligible based on patient's age to complete this topic Varicella Vaccines Aged Out No longer eligible based on patient's age to complete this topic Procedures Procedure Name Priority Date/Time Associated Diagnosis Comments LIPID PANEL WITH REFLEX TO DIRECT LDL Routine 07/08/2024 1:48 PM EST Other hyperlipidemia SCREENING MAMMOGRAPHY BI 2-VIEW BREAST INC CAD Routine 03/02/2024 10:53 AM EDT Encounter for screening mammogram for malignant neoplasm of breast ANNUAL BMP BLOOD TEST Routine 12/17/2023 HEPATITIS C SCREENING Routine 04/28/2017 COLONOSCOPY Routine 04/23/2017 HIV SCREENING Routine 01/02/2015 from Last 3 Months or Most Recently Relevant to Health Maintenance Results * (ABNORMAL) Lipid panel with reflex to direct LDL (07/08/2024 1:48 PM EST) Cholesterol 226(H) 0 - 200 mg/dL LAB CHEMISTRY METHOD 07/08/2024 4:38 PM [facility] Triglycerides 72 0 - 150 mg/dL LAB CHEMISTRY METHOD 07/08/2024 4:38 PM [facility] HDL 81 >=40 mg/dL LAB CHEMISTRY METHOD 07/08/2024 4:38 PM [facility] LDL Calculated 131(H) 0 - 100 mg/dL LAB CHEMISTRY METHOD 07/08/2024 4:38 PM [facility] VLDL Cholesterol Milton 14.4 mg/dL LAB CHEMISTRY METHOD 07/08/2024 4:38 PM [facility] Non HDL Chol. (LDL+VLDL) 145(H) <145 mg/dL LAB CHEMISTRY METHOD 07/08/2024 4:38 PM [facility] Chol/HDL Ratio 2.8 0.0 - 4.4 LAB CHEMISTRY METHOD 07/08/2024 4:38 PM [facility] Blood Venous blood specimen / Unknown Venipuncture / Unknown 07/08/2024 1:48 PM EST 07/08/2024 1:48 PM EST us Bridget Pak MD LAB BLOOD ORDERABLES Final Resul t [facility] [address] [place] [address], * SCREENING MAMMOGRAPHY BI 2-VIEW BREAST INC [...] interpreted with the aid of computer-aided detection. Comparison is made with 02/19/2023 and as far back as 01/31/2020. History of bilateral reduction mammoplasty. Breast parenchyma is heterogeneously dense, which may obscure small masses. Postsurgical changes of bilateral reduction mammoplasty again noted. No new suspicious mass, architectural distortion, or suspicious calcifications. Impression: No mammographic evidence of malignancy. BI-RADS 2-benign [address] [address] Procedure Note Jana Esteves MD - 03/30/2024 [...] No mammographic evidence of malignancy. BI-RADS 2-benign [address] [place] [address] Bridget Pak MD IMG XR PROCEDURES Final Result * Annual BMP Blood Test (12/17/2023) Annual BMP Blood Test Abstracted Historical Provider HEALTH MAINTENANCE Final Result * Hepatitis C Screening (04/28/2017) Pathologist [facility] Hepatitis C Screening Abstracted Historical Provider HEALTH MAINTENANCE Final Result * Colonoscopy (04/23/2017) Pathologist [facility] Colonoscopy no interpretation , abstracted Anatomical Region Laterality Modality Other Historical Provider HEALTH MAINTENANCE Final Result * HIV Screening (01/02/2015) Pathologist [facility] HIV Screening Abstracted Historical Provider HEALTH MAINTENANCE Final Result from Last 3 Months or Most Recently Relevant to Health Maintenance Insurance [facility] Care Teams Failure Analysis Engineer Relationship Specialty Start Date End Date Bridget Pak MD [address] [place] [phone] PCP - General 02/19/05
[2024-12-22 15:50] LABS: MANUAL DIFF FLAG NO
[2024-12-22 16:51] LABS: Hematocrit 38.8 % (37.0-47.0); Hemoglobin 13.2 g/dl (12.0-16.0); Imm Gran Abs Auto 0.01 X10*3/uL (0.00-0.03); Imm Gran Pct Auto 0.2 % (0.0-0.4); Lymphocytes Absolute Auto 2.1 X10*3/uL (1.2-4.9); Mean Corpuscular HGB Conc 34.0 g/dl (31.0-35.0); Mean Corpuscular Hemoglobin 26.8 pg (27.0-33.0); Mean Corpuscular Volume 78.9 fL (80.0-98.0); NRBC Abs Auto 0.000 X10*3/uL (0.0-0.012); NRBC Pct Auto 0.0 /100WBC (0.0-0.2); Platelet Count 238 X10*3/uL (160-400); Red Blood Count 4.92 X10*6/uL (4.20-5.50); White Blood Count 4.5 X10*3/uL (4.8-10.8)
[2024-12-22 17:12] LABS: Alanine Aminotransferase 13 U/L (0-31); Albumin Level 4.2 g/dL (3.5-5.0); Alkaline Phosphatase 57 U/L (39-117); Anion Gap 10 (12-20); Aspartate Amino Transferase 14 U/L (5-31); Blood Urea Nitrogen 14 mg/dL (9-16); Calcium 9.5 mg/dL (8.4-10.2); Carbon Dioxide 28 mmol/L (22-29); Chloride 107 mmol/L (96-108); Estimated Glomerular Filt Rate 59; Potassium 3.2 mmol/L (3.3-5.1); Sodium 142 mmol/L (135-145); Total Protein 7.2 g/dL (6.5-8.0)
[2024-12-23 08:19] LABS: HBS Num1 > 1000.00 mIU/mL (0-7.99); HBc Num1 5.66 S/CO (0.00-0.79); HBsAGNum1 0.31 S/CO (0.00-0.99); Hepatitis A Antibody IgM 0.28 Index (0-0.79); Hepatitis B Surface Antigen Negative (Negative); ~HepC Num1 0.11 S/CO (0.00-0.79); ~Hepatitis A Antibody IgM Nonreactive (Nonreactive); ~Hepatitis B Surface Antibody REACTIVE (Nonreactive); ~Hepatitis C Antibody Nonreactive (Nonreactive)
[2024-12-23 09:25] LABS: HBc Num2 5.46 S/CO; HBc Num3 5.55 S/CO
[2024-12-23 15:13] LABS: Hepatitis B Viral DNA Qn - cp NOT DETECTED Log IU/mL (NOT DETECTED); Hepatitis B Viral DNA Qn-IU/mL NOT DETECTED (NOT DETECTED)
[2024-12-24 22:53] LABS: TS Negative Control Passed; TS Panel A 0; TS Panel B 0; TS Positive Control Passed; TSpotTB Negative (Negative)
== END 2024-12-22 15:35 | disposition home or self-care (01) ==
LOC: HO.LAB 15:34
PROVIDERS: PCP Internal Medicine; Visit Provider Student in an Organized Health Care Education/Training Program
DX: M06.00 Rheumatoid arthritis without rheumatoid factor, unspecified site (principal)
CPT/HCPCS: 36415; 80053; 85025; 85652; 86140; 86481; 86704; 86706; 86709; 86803; 87340; 87517

== ENCOUNTER 2024-12-24 14:30 | Outpatient (AMB) | payer OTHER, SELFPAY ==
[2024-12-24 14:32] VITALS: BP 137/78; PULSE 66; O2SAT 100; BMI 32.5
--- NOTE | 2024-12-24 14:32 | A.OFFVIS_ITS ---
Vital Signs 12/24/24 14:32 Height 5 ft 8 in Weight 214 lb 1.102 oz BMI 32.5 BP 137/78 Blood Pressure Location Lt brachial Position Sitting Pulse 66 Pulse Source Pulse Oximeter Pulse Oximetry (%) 100 Oxygen Delivery Method Room Air Intake Visit Reasons: RA Intake Note: Patient last seen by doctor Kiera Fernandez on 08/06/24. Presents today for RA follow up and test results.Patient complains of chronic back pain for months. Allergies prednisone Allergy (Verified 12/24/24 14:35) Rash Medication List - Last Reconciled 12/24/24 by Kiera Fernandez MD adalimumab-adaz (Hyrimoz(CF) Pen) 40 mg (0.4 mL) subcut Q14D atorvastatin 10 mg PO BEDTIME cyclobenzaprine 5 - 10 mg (0.5 - 1 x 10 mg) PO BEDTIME PRN fluticasone propionate 50 mcg/actuation (Allergy Relief (fluticasone)) 2 sprays intranasal DAILY PRN hydrochlorothiazide 25 mg PO DAILY ibuprofen 400 mg PO Q8H PRN losartan 100 mg PO DAILY HPI Comments Details: Patient is a 58-year-old female with hypertension, hyperlipidemia, polyarticular osteoarthritis, GERD and seronegative rheumatoid arthritis here today for follow up. 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 Ineffective 06/2024. Hymiroz Current Rheumatology Medication(s): Hymiroz 40mg SC every 2 weeks (hasn't started) [facility] Medical History Screening examination for infectious disease Long-term use of immunosuppressant medication Osteoarthritis of lumbosacral spine Migraine GERD (gastroesophageal reflux disease) Osteoarthritis cervical spine Seronegative rheumatoid arthritis Surgical History S/P lumbar fusion Family History Maternal Aunt Breast cancer Mother Rheumatoid arthritis Hypertension Heart failure Social History (Reviewed 08/06/24 @ 15:46 by Lawanda Andujar [facility]) Household Members: Spouse Housing: House Are you a primary patient care to a significant other at home: No Do you presently have visiting nurse or other home services: No 75 years or older and lives alone: No Alcohol intake: never Patient Tobacco Use Status: Never used Tobacco e-Cigarette/Vaping Use: Never Used service: No Current occupational status: employed 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Const Details: Review of Systems Constitutional: Denies fever, chills, weight loss ENT: Denies vision changes, eye pain or eye redness, dental caries, dry mouth GI: Denies nausea, vomiting, diarrhea, abdominal pain, change in BM Pulm: Denies SOB, SCHERER, hemoptysis, wheezing Cards: Denies chest pain, palpitations Skin: Denies Raynaud's, rash, nail changes, photosensitivity, IMPREGNATING HELPER: Denies headaches, weakness, paresthesias, recurrent falls MSK: as per HPI All other systems reviewed and are unremarkable except noted above Physical Exam Exam Exam: Vital signs reviewed Physical Examination CONSTITUITIONAL Patient alert and cooperative. Well appearing and in no apparent painful distress MSK Hands: ?Good crude oil driver strength bilaterally. No deformities noted. ?No synovitis noted to the MCPs, PIPs or DIPs. ?No tenderness to palpation of these joints. Wrists: ?Full range of motion at the wrists without pain. ?No tenderness to palpation or synovitis noted to the wrists. Elbows: Full range of motion without pain. No tenderness, weakness, swelling, increased warmth or erythema. Shoulders: Full range of motion without pain. No tenderness, weakness, swelling, increased warmth or erythema. Knees: ?Full range of motion. ?No tenderness, swelling, increased warmth or erythema.?No effusion or crepitations Ankles: full ROM. Swelling and TTP bilaterally? Feet: ?Negative squeeze test. ?No tenderness to palpation or swelling of the MTPs. Tender points:?No tenderness to palpation of the bilateral trapezius, supraspinatus, greater trochanters, anterior costochondral junctions, bilateral gluteal areas, bilateral suboccipital muscle insertions SKIN Skin intact without rashes. Vital Signs: Last Vital Signs Pulse 66 12/24/24 14:32 BP 137/78 12/24/24 14:32 Pulse Ox 100 12/24/24 14:32 Oxygen Delivery Method Room Air 12/24/24 14:32 BMI result Body Mass Index 32.5 Results Reviewed Results Reviewed: Laboratory Tests 12/22/24 15:48 WBC 4.5 L RBC 4.92 Hgb 13.2 Hct 38.8 Plt Count 238 ESR 13 Sodium 142 Potassium 3.2 L Chloride 107 Carbon Dioxide 28 BUN 14 Creatinine 0.96 AST 14 ALT 13 C-Reactive Protein 0.25 Laboratory Tests 11/12/23 12/22/24 16:40 15:48 Hepatitis A IgM Ab Nonreactive Hep Bs Antigen Negative Hep Bs Antibody REACTIVE Hep B Core Total Ab Reactive Hep B DNA copies/mL NOT DETECTED Hep B DNA (IU/mL) NOT DETECTED Hepatitis C Ab (EIA) Nonreactive TB Test (T-Spot) Com Negative Pending Assessment & Plan Assessment & Plan (1) Seronegative rheumatoid arthritis: Comment: Onset 2013 Seronegative RA with predominant involvement of feet , ankles and knees 02/14 Methotrexate started - stopped due to ineffectiveness Code(s): M06.00 - Rheumatoid arthritis without rheumatoid factor, unspecified site Category: Medical Plan: #Seronegative Rheumatoid Athritis Patient is a 58-year-old female with seronegative RA who presents for follow-up. She did not start her Hyrimoz due to financial issues after being laid off from her federally funded job. Today she does not have significant synovitis on exam - only involving the ankle and her blood work is overall unremarkable We will try hydroxychloroquine Plan - Hydroxychloroquine 200mg bid - RTC 4 months - Labs before visit: CBC, CMP, ESR, CRP (2) Hepatitis B core antibody positive: Comment: She is also antibody positive and so not likely active Code(s): R76.8 - Other specified abnormal immunological findings in serum Category: Medical Plan: #Hep B core Ab positive Seen by Infectious Disease 05/2024. Disease likely not active and no follow up labs were recommended (3) Encounter for monitoring of hydroxychloroquine therapy: Code(s): Z51.81 - Encounter for therapeutic drug level monitoring; Z79.899 - Other group home (current) drug therapy Plan: #Long-term Use of Hydroxychloroquine Discussed with patient the risks and benefits of hydroxychloroquine in managing the rheumatic condition Benefits include: - Reduced pain, reduce mortality, maintenance of remission and reduction of flares Risks include: - GI upset, skin hyperpigmentation, retinal toxicity (especially after more than 5 years of use), myopathy Advised yearly ophthalmology visits Plan I spent 30 minutes reviewing the record and labs, taking a history, examining the patient, discussing the treatment plan and documenting in the medical record Medications: New hydroxychloroquine (Plaquenil) 200 mg PO BID 90 days 180 tabs 1RF Z51.81 - Encounter for therapeutic drug level monitoring, Z79.899 - Other terminal operations supervisor (current) drug therapy hydroxychloroquine (Plaquenil) 200 mg PO BID 180 tabs 1RF 90 days Z51.81 - Encounter for therapeutic drug level monitoring, Z79.899 - Other group home (current) drug therapy Discontinued adalimumab-adaz (Hyrimoz(CF) Pen) Discontinued Reason: Doctor's Order 40 mg (0.4 mL) subcut Q14D 0.8 mL 2RF M06.00 - Rheumatoid arthritis without rheumatoid factor, unspecified site Coding Level of Care Code Est Pt Level 4 (38407) Complex EM visit Add On G2211 Diagnoses Seronegative rheumatoid arthritis M06.00 Hepatitis B core antibody positive R76.8 Encounter for monitoring of hydroxychloroquine therapy Z51.81; Z79.899
--- OUTSIDE RECORDS SUMMARY | 2024-12-24 14:33 | XMS_ITS | Clinical Summary ---
Author Organization [facility] [address] [place] [address] [place] [phone] Phone Care Team Providers Care Information Assurance Engineer Name Role Phone Bridget Pak MD [...] Vitamin D deficiency 09/28/2015 RA (rheumatoid arthritis) ([facility] V24, [facility] V28) 01/17/2015 Overview (03/03/2024): Onset 2013 Seronegative [...] and bleeding OTHER SURGICAL HISTORY 06/2013 PROCEDURE: AL ARTHRODESIS POSTERIOR INTERBODY 1 NTRSPC LUMBAR OTHER SURGICAL HISTORY 2010 PROCEDURE: AL ARTHRD ANT INTERBODY MIN DSC CRV BELOW C2 COLONOSCOPY 04/23/2017 PROCEDURE: HISTORICAL COLONOSCOPY; COMMENT: negative BREAST REDUCTION 1990s Bilateral PROCEDURE: AL BREAST REDUCTION Medical History Medical History Date [...] 9:30 AM EDT Consult Bariatric Surgery - [place] [address] [facility] [address] [place] [phone] Megan Shepherd PA [address] [facility] [address] [place] [phone] 01/27/2025 3:30 PM EDT Office Visit Adult Medicine [facility] - [address] [phone] Vivi Khoury PA [address] [place] [address] 03/15/2025 1:30 PM EDT Appointment Radiology Department - [address] [phone] Health Maintenance Due Date Last Done Comments [...] mg/dL LAB CHEMISTRY METHOD 07/08/2024 4:38 PM [facility] Triglycerides 72 0 - 150 mg/dL LAB CHEMISTRY METHOD 07/08/2024 4:38 PM [facility] HDL 81 >=40 mg/dL LAB CHEMISTRY METHOD 07/08/2024 4:38 PM [facility] LDL Calculated 131(H) 0 - 100 mg/dL LAB CHEMISTRY METHOD 07/08/2024 4:38 PM [facility] VLDL Cholesterol Milton 14.4 mg/dL LAB CHEMISTRY METHOD 07/08/2024 4:38 PM [facility] Non HDL Chol. (LDL+VLDL) 145(H) <145 mg/dL LAB CHEMISTRY METHOD 07/08/2024 4:38 PM [facility] Chol/HDL Ratio 2.8 0.0 - 4.4 LAB CHEMISTRY METHOD 07/08/2024 4:38 PM [facility] Blood Venous blood specimen / Unknown Venipuncture / Unknown 07/08/2024 1:48 PM EST 07/08/2024 1:48 PM EST us Bridget Pak MD LAB BLOOD ORDERABLES Final Resul t [facility] [address] [place] [address], * SCREENING MAMMOGRAPHY BI 2-VIEW BREAST INC CAD (03/02/2024 10:53 AM EDT) Anatomical Region Laterality Modality Radiographic Concah ging 02/19/2023 2:03 PM EDT Narrative 03/02/2024 [...] No mammographic evidence of malignancy. BI-RADS 2-benign [address] [address] Procedure Note Jana Esteves MD [...] No mammographic evidence of malignancy. BI-RADS 2-benign [address] [place] [address] Bridget Pak MD IMG XR PROCEDURES Final Result * Annual BMP Blood Test (12/17/2023) Annual BMP Blood Test Abstracted Historical Provider HEALTH MAINTENANCE Final Result * Hepatitis C Screening (04/28/2017) Pathologist [facility] Hepatitis C Screening Abstracted Historical Provider HEALTH MAINTENANCE Final Result * Colonoscopy (04/23/2017) Pathologist [facility] Colonoscopy no interpretation , abstracted Anatomical Region Laterality Modality Other Historical Provider HEALTH MAINTENANCE Final Result * HIV Screening (01/02/2015) Pathologist [facility] HIV Screening Abstracted Historical Provider HEALTH MAINTENANCE Final Result from Last 3 Months or Most Recently Relevant to Health Maintenance Insurance [facility] Care Teams Information Assurance Engineer Relationship Specialty Start Date End Date Bridget Pak MD [address] [place] [id number] PCP - General 02/19/05
== END 2024-12-24 15:41 | disposition home or self-care (01) ==
PROVIDERS: PCP Internal Medicine; Visit Provider Student in an Organized Health Care Education/Training Program
DX: M06.00 Rheumatoid arthritis without rheumatoid factor, unspecified site (principal); R76.8 Other specified abnormal immunological findings in serum; Z51.81 Encounter for therapeutic drug level monitoring; Z79.899 Other long term (current) drug therapy
CPT/HCPCS: 99214; G2211

== ENCOUNTER 2024-12-28 14:34 | Outpatient (AMB) | payer OTHER, SELFPAY ==
--- OUTSIDE RECORDS SUMMARY | 2024-12-28 15:17 | XMS_ITS | Clinical Summary ---
Author Organization [facility] [address] [place] [address] [place] [phone] Phone Care Team Providers Care Plastic Welder Name Role Phone Bridget Pak MD Primary Care Provider [phone] Allergies Active Allergy Reactions Criticality Noted Date [...] Vitamin D deficiency 09/28/2015 RA (rheumatoid arthritis) ([facility] V24, [facility] V28) 01/17/2015 Overview (03/03/2024): Onset 2013 Seronegative [...] and bleeding OTHER SURGICAL HISTORY 06/2013 PROCEDURE: [place] ARTHRODESIS POSTERIOR INTERBODY 1 NTRSPC LUMBAR OTHER SURGICAL HISTORY 2010 PROCEDURE: ND ARTHRD ANT INTERBODY MIN DSC CRV BELOW C2 COLONOSCOPY 04/23/2017 PROCEDURE: HISTORICAL COLONOSCOPY; COMMENT: negative BREAST REDUCTION 1990s Bilateral PROCEDURE: ND BREAST REDUCTION Medical History Medical History Date [...] 9:30 AM EDT Consult Bariatric Surgery - [place] [facility] [address] [place] [phone] Megan Shepherd PA 175 [facility] [address] [place] [phone] 01/27/2025 3:30 PM EDT Office Visit Adult Medicine [facility] - [address] [phone] Vivi Khoury PA [address] [place] [address] 03/15/2025 1:30 PM EDT Appointment Radiology Department - [address] [phone] Health Maintenance Due Date Last Done Comments [...] mg/dL LAB CHEMISTRY METHOD 07/08/2024 4:38 PM [facility] Triglycerides 72 0 - 150 mg/dL LAB CHEMISTRY METHOD 07/08/2024 4:38 PM [facility] HDL 81 >=40 mg/dL LAB CHEMISTRY METHOD 07/08/2024 4:38 PM [facility] LDL Calculated 131(H) 0 - 100 mg/dL LAB CHEMISTRY METHOD 07/08/2024 4:38 PM [facility] VLDL Cholesterol Milton 14.4 mg/dL LAB CHEMISTRY METHOD 07/08/2024 4:38 PM [facility] Non HDL Chol. (LDL+VLDL) 145(H) <145 mg/dL LAB CHEMISTRY METHOD 07/08/2024 4:38 PM [facility] Chol/HDL Ratio 2.8 0.0 - 4.4 LAB CHEMISTRY METHOD 07/08/2024 4:38 PM [facility] Blood Venous blood specimen / Unknown Venipuncture / Unknown 07/08/2024 1:48 PM EST 07/08/2024 1:48 PM EST us Bridget Pak MD LAB BLOOD ORDERABLES Final Resul t [facility] [address] [place] [address], * SCREENING MAMMOGRAPHY BI 2-VIEW BREAST INC [...] No mammographic evidence of malignancy. BI-RADS 2-benign [address] [address] Procedure Note Jana Esteves MD [...] No mammographic evidence of malignancy. BI-RADS 2-benign [address] [place] [address] Bridget Pak MD IMG XR PROCEDURES Final Result * Annual BMP Blood Test (12/17/2023) Annual BMP Blood Test Abstracted Historical Provider HEALTH MAINTENANCE Final Result * Hepatitis C Screening (04/28/2017) Pathologist [facility] Hepatitis C Screening Abstracted Historical Provider HEALTH MAINTENANCE Final Result * Colonoscopy (04/23/2017) Pathologist [facility] Colonoscopy no interpretation , abstracted Anatomical Region Laterality Modality Other Historical Provider HEALTH MAINTENANCE Final Result * HIV Screening (01/02/2015) Pathologist [facility] HIV Screening Abstracted Historical Provider HEALTH MAINTENANCE Final Result from Last 3 Months or Most Recently Relevant to Health Maintenance Insurance [facility] Care Teams Plastic Welder Relationship Specialty Start Date End Date Bridget Pak MD [address] [place] [phone] PCP - General 02/19/05
[2024-12-28 15:33] VITALS: BMI 32.8
--- NOTE | 2024-12-28 15:33 | A.OFFVIS_ITS ---
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 Intake Note: new patient annual Manual Winder Required: No Information Interpreted: non-clinical & clinical High School Admissions Representative: High School Admissions Representative Present (Tamika) Accompanied by: Self / Same As Patient Allergies prednisone Allergy (Verified 12/28/24 15:36) Rash Medication List - Last Reconciled 12/28/24 by Swati Crane LPN atorvastatin 10 mg PO BEDTIME fluticasone propionate 50 mcg/actuation (Allergy Relief (fluticasone)) 2 sprays intranasal DAILY PRN hydrochlorothiazide 25 mg PO DAILY hydroxychloroquine (Plaquenil) 200 mg PO BID 90 days ibuprofen 400 mg PO Q8H PRN losartan 100 mg PO DAILY Is last menstrual period known: No Post menopausal: No Patient : No Do you need a note to return to daycare/school/sports/work: No HPI Comments Details: Patient is a postmenopausal woman presenting for her 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 Retail Service Representative concerns: none. History of xtfzixptxtbkz-[id number]-pit to cervical polyps, fibroids, and pain. Currently occasionally sexually active. Admits to vaginal dryness. Attempting to eat a healthy diet with calcium and vitamin D and stays active with exercise-walks. Last pap smear; years ago, negative. Last mammogram; 2023. Colonoscopy is UTD. Denies any family history of ovarian or colon cancer. Family history of breast cancer. [facility] Medical History Spinal stenosis delivery delivered Hyperlipidemia Hypertension Prediabetes Screening examination for infectious disease Osteoarthritis of lumbosacral spine Migraine GERD (gastroesophageal reflux disease) Osteoarthritis cervical spine Seronegative rheumatoid arthritis Surgical History (Updated 12/28/24 @ 16:19 by Claire Ruvalcaba CNM) History of hysterectomy, supracervical Hx of breast reduction, elective S/P lumbar fusion Family History Maternal Aunt Breast cancer Mother Rheumatoid arthritis Hypertension Heart failure Social History Household Members: Spouse Housing: House Are you a primary school childcare attendant to a significant other at home: No Do you presently have visiting nurse or other home services: No 75 years or older and lives alone: No Alcohol intake: never Patient Tobacco Use Status: Never used Tobacco e-Cigarette/Vaping Use: Never Used service: No Current occupational status: employed 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 Female Reproductive History Menstrual Menopause type: surgical Total pregnancies: 1 Number of Living Children: 2 Date of Mammogram: 12/29/23 History of abnormal mammogram: No Review of Systems Const All systems reviewed & are unremarkable except as noted in HPI and below Reports as per HPI Eyes Reports no additional complaints ENT Reports no additional complaints Card Reports no additional complaints Resp Reports no additional complaints GI Reports as per HPI and Reports no additional complaints Reports as per HPI Musc Reports no additional complaints Skin/Breast Reports as per HPI Neuro Reports no additional complaints Psych Reports no additional complaints Endo Reports no additional complaints Luis/Lymph Reports no additional complaints Aller/Immun Reports no additional complaints Physical Exam Vital Signs: BMI result Body Mass Index 32.8 Const General: cooperative, healthy appearing, no acute distress, well developed and alert Orientation/consciousness: patient oriented x3 HEENT Head: Yes normal to inspection Eyes General: appearance normal, both eyes and all related structures Neck Neck: Yes normal visual inspection Thyroid: Thyroid normal Chest Chest palpation & inspection: normal inspection of the chest (Bilateral breast reduction scarring) and other (no puckering, dimpling, peau de orange, retraction, discharge, masses) Breast/axilla inspection: normal inspection of the breasts Breast/axilla palpation: normal palpation of the breasts Resp Effort & Inspection: normal respiratory effort GI Inspection: Yes normal to inspection Palpation (GI): Soft to palpation Rectal Exam - Female: deferred General: Yes bladder normal to palpation External Female Exam: normal external appearance and normal appearance of the urethra Speculum Exam - Vagina: normal appearance of the vagina, normal palpation, normal vaginal discharge and vagina atrophic Speculum Exam - Cervix: normal appearance of the cervix and normal palpation Bimanual exam- vagina & uterus: normal bimanual exam, normal palpation, bladder normal to palpation, normal palpation and uterus absent Bimanual Exam- Adnexa, other: no masses Skin General skin exam: no rashes or lesions noted Rashes: no rashes Neuro General: patient oriented x3 Cognition (Neuro): normal cognition Extrem General: Yes normal to inspection Psych Attitude: cooperative Thought process: Normal thought process present Assessment & Plan Assessment & Plan (1) Encounter for well woman exam with routine gynecological exam: Code(s): Z01.419 - Encounter for gynecological examination (general) (routine) without abnormal findings Category: Medical Plan Discussed: Current recommendations for pap smears per ASCCP guidelines. Breast awareness, periodic self breast exams and yearly mammogram. Maintain a healthy lifestyle, well balanced diet including Calcium 1,200 mg and Vitamin D 600 IU daily, and routine exercise. Information on osteoporosis prevention and Mediterranean diet handouts provided. Replens moisturizer use, and lubricants reviewed. Contact the office with any postmenopausal bleeding. [facility] send copies of mammogram yearly to our department. Patient verbalizes understanding and agrees to the plan of care. She was given opportunity to ask questions and all questions were answered to the best of my ability. RTO in 1 year for annual mushroom packer exam. This note is constructed using voice recognition software. While every effort has been made to ensure accuracy, fire control system installer errors may have been included. Coding Level of Care Code New Pt Prev Care 40-64y(61831) Diagnoses Encounter for well woman exam with routine gynecological exam Z01.419
== END 2024-12-28 18:00 ==
LOC: HO.HWS 14:34
PROVIDERS: PCP Internal Medicine; Visit Provider Advanced Practice Midwife
DX: Z01.419 Encounter for gynecological examination (general) (routine) without abnormal findings (principal)
CPT/HCPCS: 99386; 99459

== ENCOUNTER 2024-12-28 14:34 | Outpatient (REF) | payer OTHER, SELFPAY | END 2024-12-28 14:35 | disposition home or self-care (01) | LOC: HO.LNP 14:34 | PROVIDERS: PCP Internal Medicine; Visit Provider Advanced Practice Midwife | DX: Z01.419 Encounter for gynecological examination (general) (routine) without abnormal findings (principal) | CPT/HCPCS: 87626; 88175 ==

== ENCOUNTER 2025-04-18 14:23 | Outpatient (REF) | payer OTHER, SELFPAY ==
[2025-04-18 14:37] LABS: MANUAL DIFF FLAG NO
[2025-04-18 15:02] LABS: Hematocrit 39.3 % (37.0-47.0); Hemoglobin 13.1 g/dl (12.0-16.0); Imm Gran Abs Auto 0.01 X10*3/uL (0.00-0.03); Imm Gran Pct Auto 0.2 % (0.0-0.4); Lymphocytes Absolute Auto 1.8 X10*3/uL (1.2-4.9); Mean Corpuscular HGB Conc 33.3 g/dl (31.0-35.0); Mean Corpuscular Hemoglobin 26.9 pg (27.0-33.0); Mean Corpuscular Volume 80.7 fL (80.0-98.0); NRBC Abs Auto 0.000 X10*3/uL (0.0-0.012); NRBC Pct Auto 0.0 /100WBC (0.0-0.2); Platelet Count 241 X10*3/uL (160-400); Red Blood Count 4.87 X10*6/uL (4.20-5.50); White Blood Count 4.4 X10*3/uL (4.8-10.8)
[2025-04-18 15:29] LABS: Alanine Aminotransferase 26 U/L (0-31); Albumin Level 4.3 g/dL (3.5-5.0); Alkaline Phosphatase 55 U/L (39-117); Anion Gap 11 (12-20); Aspartate Amino Transferase 22 U/L (5-31); Blood Urea Nitrogen 16 mg/dL (9-16); Calcium 9.7 mg/dL (8.4-10.2); Carbon Dioxide 31 mmol/L (22-29); Chloride 103 mmol/L (96-108); Estimated Glomerular Filt Rate > 60; Potassium 3.4 mmol/L (3.3-5.1); Sodium 142 mmol/L (135-145); Total Protein 7.1 g/dL (6.5-8.0)
--- OUTSIDE RECORDS SUMMARY | 2025-04-19 04:29 | XMS_ITS | Clinical Summary ---
Author Organization [address] [facility] Address [address] [place] [address] Phone Care Team Providers Care Email Production Consultant Name Role Phone Bridget Pak MD Primary Care Provider [phone] Allergies Active Allergy Reactions Criticality Noted Date Comments Other 11/26/2010 Seasonal allergies Other Reaction(s): Runny Nose/Rhinitis Prednisone 07/05/2022 Medications fluticasone propionate (FLONASE) 50 mcg/actuation nasal spray Administer 2 sprays into affected nostril(s). 0 Active loratadine (CLARITIN) 10 mg tablet Take 1 tablet (10 mg total) by mouth 1 (one) time each day. 4 Active albuterol HFA (PROAIR HFA ; PROVENTIL HFA ; VENTOLIN HFA) 90 mcg/actuation inhaler Inhale 2 puffs by mouth. 4 Active losartan (COZAAR) 100 mg tablet TAKE 1 TABLET BY MOUTH EVERY DAY IN THE EVENING 90 tablet 1 5 Active hydroCHLOROthia zide (HYDRODIURIL) 25 mg tablet TAKE 1 TABLET BY MOUTH EVERY DAY 90 tablet 1 5 Active hydroxychloroqu ine (PLAQUENIL) 200 mg tablet Take 1 tablet (200 mg total) by mouth 2 (two) times a day. LATA TRINIDAD 5 Active kaaqdtjo-zbl-wl on-FA-vit K-lut (Centrum Silver Women) 8 mg iron-400 mcg-50 mcg tablet Take 1 tablet by mouth 1 (one) time each day. 5 Active atorvastatin (LIPITOR) 10 mg tablet TAKE 1 TABLET BY MOUTH EVERY DAY IN THE EVENING 90 tablet 1 5 Active Active Problems Problem Noted Date Diagnosed Date CKD (chronic kidney disease) stage 2, GFR 60-89 ml/min 02/12/2025 Cholestasis of 05/04/2024 Spinal stenosis 09/08/2023 Overview (03/03/2024): Severe spinal stenosis L3-L5 Prediabetes 07/18/2023 Obesity (BMI 30.0-34.9) 07/05/2022 Hyperlipidemia 05/22/2022 History of COVID-19 11/05/2021 Overview (03/03/2024): 6.1.22 Oral herpes 07/12/2021 Flat foot 11/03/2020 GERD (gastroesophageal reflux disease) Migraines 06/29/2020 Lactose intolerance 10/16/2018 Vitamin D deficiency 09/28/2015 RA (rheumatoid arthritis) ([facility] V24, [facility] V28) 01/17/2015 Overview (03/03/2024): Onset 2013 Seronegative [...] may have had BCG NEGATIVE IGRA TESTING IMO update Encounters Date Type Department Care Team Description 03/18/2025 2:03 PM EDT - 03/18/2025 11:59 PM EDT Hospital Encounter Radiology Department - [address] [phone] Encounter for screening mammogram for breast cancer Discharge Disposition: Home or Self Care 01/27/2025 3:30 PM EDT Office Visit Adult Medicine [address] [phone] Vivi Khoury PA Prediabetes (Primary Dx); Mixed hyperlipidemia; Primary hypertension; Vitamin D deficiency; Obesity (BMI 30.0-34.9); Rheumatoid arthritis, involving unspecified site, unspecified whether rheumatoid factor present ([facility] V24, [facility] V28); Need for vaccination against Streptococcus pneumoniae; Gastroesophageal reflux disease, unspecified whether esophagitis present from Last 3 Months Immunizations Immunization Administration Dates Next Due H1N1 Inj Preservative Free 05/18/2009 Influenza Quadravalent, MDCK , 0.5ml, preservative free (Flucelvax) 6mo and older 02/04/2023,02/19/2022 Influenza Quadravalent, MDCK , 0.5ml, with preservative (Flucelvax) 6mo and older 03/08/2018,04/13/2017 Influenza Quadrivalent, 0.5m l, preservative free (Fluarix; FluLaval; Fluzone) ages 6mo and older (Afluria) 3yo and older 03/16/2021,02/07/2020,03/07/2019 Influenza trivalent, 0.5mL, preservative free (Fluarix; FluLaval; Fluzone) ages 6mo and older (Afluria) 3 years and older 02/04/2023 Influenza trivalent, MDCK, 0 .5mL, preservative free (Flucelvax) 6mo and older 02/18/2024 Influenza trivalent, recombi nant, 0.5mL, preservative free (Flublok) 9yo and older 03/18/2025 Influenza trivalent, with pr eservative (Fluzone; Afluria) 6mo and older 03/16/2021,02/07/2020,02/23/2016,03/05,03/03/2014,03/14/2013,02/23/2012 ,02/19/2011,04/06/2010,02/18/2009,11/0 06/2006,04/09/2005 Moderna (age 6mo & older) Bi valent, COVID-19, 0.5 mL or 0.25 mL dosage 12/11/2022,03/11/2022 Moderna Covid-19 Bivalent, O riginal + Ba.1 (Non-US Tradename Spikevax Bivalent) 12/11/2022,03/11/2022 Moderna SARS-CoV-2 COVID-19, mRNA, LNP-S, preservative free 09/20/2020 Pneumococcal conjugate 13 va lent (Prevnar 13, PCV13) 2mo and older 03/30/2015 Pneumococcal conjugate 20 va lent (Prevnar 20, PCV 20) 2mo and older 01/27/2025 Pneumococcal polysaccharide 23 valent (Pneumovax 23) 2yo and older 07/20/2015,06/11/2013 Td Tetanus diptheria (Tdvax) 7yo and older 11/11/2022,04/09/2005 Tdap Tetanus diptheria acell ular pertussis (Boostrix; Adacel) 7yo and older 07/03/2012 Zoster recombinant (Shingrix ) 19yo and older 12/05/2021,07/19/2021 Surgical History Surgery Date Site/Laterality Comments OTHER SURGICAL HISTORY 01/2023 PROCEDURE: MAMMOGRAM SECTION PROCEDURE: HISTORICAL DELIVERY HYSTERECTOMY 09/2012 PROCEDURE: HISTORICAL HYSTERECTOMY; COMMENT: supracervical for fibroid and bleeding OTHER SURGICAL HISTORY 06/2013 PROCEDURE: UT ARTHRODESIS POSTERIOR INTERBODY 1 NTRSPC LUMBAR OTHER SURGICAL HISTORY 2010 PROCEDURE: UT ARTHRD ANT INTERBODY MIN DSC CRV BELOW C2 COLONOSCOPY 04/23/2017 PROCEDURE: HISTORICAL COLONOSCOPY; COMMENT: negative BREAST REDUCTION 1990s Bilateral PROCEDURE: UT BREAST REDUCTION Medical History Medical History Date [...] infection 11/05/2021 DX:COVI D-19 virus infection; COMMENT: 6.. Spinal stenosis 09/08/2023 DX:Spinal stenos is; COMMENT: [...] Safety Answer Date Record ed Physical Abuse Unrecognized value 07/02/2024 Verbal Abuse Unrecognized value 07/02/2024 Comments No Sex and Gender Information Value Date Recorded Sex Assigned at Female 06/30/2024 12:00 PM EST Legal Sex Female 2:21 AM EST Gender Identity Female 06/30/2024 12:00 PM EST Sexual Orientation Not on file Obstetrics History Para Term AB IAB SAB Ectopic Multiple Livin g Live Births 2 2 2 2 Date Outcome GA Total Labor Labor/2nd/3rd Weight Sex Type Anes PTL Annabella A1 A5 Name Clin Term Term Last Filed Vital Signs Vital Sign Reading Time Taken Comments Blood Pressure 138/84 01/27/2025 3:28 PM EDT Pulse 72 01/27/2025 3:17 PM EDT Temperature 36.3 C (97.3 F) 01/27/2025 3:17 PM EDT Respiratory Rate 18 01/27/2025 3:17 PM EDT Oxygen Saturation 97% 01/27/2025 3:17 PM EDT Inhaled Oxygen Concentration - - Weight 99.1 kg (218 lb 8 oz) 01/27/2025 3:17 PM EDT Height 172.7 cm (5' 8 ) 01/27/2025 3:17 PM EDT Body Mass Index 33.22 01/27/2025 3:17 PM EDT Plan of Treatment Upcoming Encounters Date Type Department Care Team (Late st Contact Info) Description 08/09/2025 10:30 AM EDT Consult Bariatric Surgery - [place] [address] [place] [address] Megan Shepherd PA [address] [place] [phone] Health Maintenance Due Date Last Done Comments Hepatitis B Vaccines (1 of 3 - 19+ 3-dose series) 1984 Cervical Cancer Screening: HPV 1986 RSV Immunization Adult Patients (1 - Risk 50-74 years 1-dose series) 10/14/2015 Social Influencers of Health Screening 05/11/2022 Depression Screening 06/02/2024 Hypertension/CHF/CAD Annual BMP Blood Test 02/01/2026 02/01/2025, 12/17/2023, 12/17/2023 Breast Cancer Screening 03/18/2026 03/18/20 25, 03/02/2024, 03/02/2024, Additional history exists Colorectal Cancer Screening: Colonoscopy 04/23/2027 04/23/2017, 04/23/2017, 04/23/2017 Cholesterol Screening (Lipid Panel) 02/01/2030 02/01/2025, 07/08/2024, 11/11/2022, Additional history exists DTaP,Tdap,and Td Vaccines (4 - Td or Tdap) 11/11/2032 11/11/2022, 07/03/2012, 04/09/2005 HIV Screening Completed 01/02/2015 Hepatitis C Screening Completed 04/28/2017 Zoster Vaccines Completed 12/05/2021, 07/19/2021 Pneumococcal Vaccine: 50+ Years Completed 01/27/2025, 07/20/2015, 03/30/2015, Additional history exists COVID-19 Vaccine Completed 03/18/2025, , 12/11/2022, Additional history exists Influenza Vaccine Completed 03/18/2025, , 02/04/2023, Additional history exists HIB Vaccines [...] Procedure Name Priority Date/Time Associated Diagnosis Comments MG MAMMO DIGITAL SCREENING W GUI BILAT Routine 03/18/2025 2:16 PM EDT Encounter for screening mammogram for breast cancer COMPREHENSIVE METABOLIC PANEL Routine 02/01/2025 11:59 AM EDT Mixed hyperlipidemia Primary hypertension Prediabetes Vitamin D deficiency Obesity (BMI 30.0-34.9) Rheumatoid arthritis, involving unspecified site, unspecified whether rheumatoid factor present ([facility] V24, [facility] V28) HEMOGLOBIN A1C Routine 02/01/2025 11:59 AM EDT Prediabetes LIPID PANEL WITH REFLEX TO DIRECT LDL Routine 02/01/2025 11:59 AM EDT Mixed hyperlipidemia VITAMIN D 25 HYDROXY Routine 02/01/2025 11:59 AM EDT Vitamin D deficiency HEPATITIS C SCREENING Routine 04/28/2017 COLONOSCOPY Routine 04/23/2017 HIV SCREENING Routine 01/02/2015 from Last 3 Months or Most Recently Relevant to Health Maintenance Results * MG Mammo Digital Screening w Gui bilat (03/18/2025 2:16 PM EDT) Anatomical Region Laterality Modality Breast Bilateral Mammography 03/21/2025 2:21 PM EDT Impressions 03/21/2025 2:24 PM EDT Benign. BI-RADS CATEGORY: 1 - NEGATIVE RECOMMENDATION: Screening bilateral mammogram is recommended in 1 year. Mammo Location: [facility], [address] [place] [address], [id number], . -------- FINAL REPORT -------- Dictated By: Nannette Reddy Dictated Date: 03/21/2025 14:21 ET Assigned Physician: Nannette Reddy Reviewed and Electronically Signed By: Nannette Reddy Signed Date: 03/21/2025 14:24 ET Workstation ID: [id number] Transcribed By: Self Edit Transcribed Date: 03/21/2025 14:21 ET Narrative 03/21/2025 2:24 PM EDT CLINICAL: 59 years old, Female, routine annual exam. COMPARISON: Mammograms dating back to 02/12/2021 with most recent of 03/02/2024. TECHNIQUE: Bilateral MLO and CC views were obtained digitally with 3-D mammogram (digital breast tomosynthesis). Computer-aided detection was utilized in evaluation of this exam (CAD). FINDINGS: There is no evidence of suspicious mass or architectural distortion. No worrisome calcifications are evident. There has been no significant change from prior exam(s). BREAST DENSITY: C - The breasts are heterogeneously dense which may obscure small masses. Procedure Note Nannette Reddy MD - 03/21/2025 CLINICAL: 59 years old, Female, routine annual exam. COMPARISON: Mammograms dating back to 02/12/2021 with most recent of03/02/2024. TECHNIQUE: Bilateral MLO and CC views were obtained digitally with 3-Dmammogram (digital breast tomosynthesis). Computer-aided detection wasutilized in evaluation of this exam (CAD). FINDINGS: There is no evidence of suspicious mass or architectural distortion. Noworrisome calcifications are evident. There has been no significantchange from prior exam(s). BREAST DENSITY: C - The breasts are heterogeneously dense which mayobscure small masses. IMPRESSION: Benign. BI-RADS CATEGORY: 1 - NEGATIVE RECOMMENDATION: Screening bilateral mammogram is recommended in 1 year. Mammo Location: [facility], [address] [place] [address], [id number], . -------- FINAL REPORT -------- Dictated By: Nannette Reddy Dictated Date: 03/21/2025 14:21 ET Assigned Physician: Nannette Reddy Reviewed and Electronically Signed By: Nannette Reddy Signed Date: 03/21/2025 14:24 ET Workstation ID: [id number] Transcribed By: Self Edit Transcribed Date: 03/21/2025 14:21 ET us Bridget Pak MD IMG BI PROCEDURES Final Result * Lipid panel with reflex to direct LDL (02/01/2025 11:59 AM EDT) Cholesterol 184 0 - 200 mg/dL LAB CHEMISTRY METHOD 02/01/2025 8:19 PM EDT [facility] Triglycerides 93 0 - 150 mg/dL LAB CHEMISTRY METHOD 02/01/2025 8:19 PM EDT [facility] HDL 90 >=40 mg/dL LAB CHEMISTRY METHOD 02/01/2025 8:19 PM EDT [facility] LDL Calculated 75 0 - 100 mg/dL LAB CHEMISTRY METHOD 02/01/2025 8:19 PM EDT [facility] Comment:Estimated LDL Calcul ated using equation: Total cholesterol - HDL cholesterol - (Triglycerides/5) VLDL Cholesterol [place] 18.6 mg/dL LAB CHEMISTRY METHOD 02/01/2025 8:19 PM EDT [facility] Non HDL Chol. (LDL+VLDL) 94 <145 mg/dL LAB CHEMISTRY METHOD 02/01/2025 8:19 PM EDT [facility] Chol/HDL Ratio 2.0 0.0 - 4.4 LAB CHEMISTRY METHOD 02/01/2025 8:19 PM EDT [facility] Blood Venous blood specimen / Unknown Venipuncture / Unknown 02/01/2025 11:59 AM EDT 02/01/2025 11:59 AM EDT us Vivi OSULLIVAN LAB BLOOD ORDERABLES Final Re sult Performing Organization Address City/[facility]/ZIP Co de Phone Number [facility] [address] [place] [address], [place] [phone] * Vitamin D 25 hydroxy (02/01/2025 11:59 AM EDT) Vit D, 25-Hydroxy 32.2 30.0 - 80.0 ng/mL LAB CHEMISTRY METHOD 02/01/2025 8:39 PM EDT [facility] Blood Venous blood specimen / Unknown Venipuncture / Unknown 02/01/2025 11:59 AM EDT 02/01/2025 11:59 AM EDT us Vivi OSULLIVAN LAB BLOOD ORDERABLES Final Re sult Performing Organization Address City/[facility]/ZIP Co de Phone Number [facility] [address] [place] [address], [place] [phone] * Hemoglobin A1c (02/01/2025 11:59 AM EDT) Hemoglobin A1C 5.7 <6.5 % LAB CHEMISTRY METHOD 02/01/2025 10:17 PM EDT [facility] Mean Bld Glu Estim. 117 mg/dL LAB CHEMISTRY METHOD 02/01/2025 10:17 PM EDT [facility] Blood Venous blood specimen / Unknown Venipuncture / Unknown 02/01/2025 11:59 AM EDT 02/01/2025 11:59 AM EDT us Vivi OSULLIVAN LAB BLOOD ORDERABLES Final Re sult [facility] [address] [place] [address], [place] [phone] * Comprehensive metabolic panel (02/01/2025 11:59 AM EDT) Sodium 141 133 - 145 mmol/L LAB CHEMISTRY METHOD 02/01/2025 8:12 PM [facility] Potassium 4.0 3.5 - 5.5 mmol/L LAB CHEMISTRY METHOD 02/01/2025 8:12 PM [facility] Chloride 104 96 - 110 mmol/L LAB CHEMISTRY METHOD 02/01/2025 8:12 PM [facility] CO2 31 21 - 32 mmol/L LAB CHEMISTRY METHOD 02/01/2025 8:12 PM [facility] Anion Gap 6 3 - 11 LAB CHEMISTRY METHOD 02/01/2025 8:12 PM [facility] Glucose 87 70 - 100 mg/dL LAB CHEMISTRY METHOD 02/01/2025 8:12 PM [facility] BUN 13 5 - 25 mg/dL LAB CHEMISTRY METHOD 02/01/2025 8:12 PM [facility] Creatinine 1.01 0.50 - 1.10 mg/dL LAB CHEMISTRY METHOD 02/01/2025 8:12 PM [facility] eGFR 64 >=60 mL/min/1. 73m2 LAB CHEMISTRY METHOD 02/01/2025 8:12 PM [facility] Comment:Calculation based on the Chronic Kidney Disease Epidemiology Collaboration (CKD-EPI) equation refit without adjustment for race. BUN/Creatinine Ratio 12.9 LAB CHEMISTRY METHOD 02/01/2025 8:12 PM [facility] Calcium 9.4 8.5 - 10.5 mg/dL LAB CHEMISTRY METHOD 02/01/2025 8:12 PM EDT [facility] AST (SGOT) 26 10 - 42 unit/L LAB CHEMISTRY METHOD 02/01/2025 8:12 PM [facility] ALT (SGPT) 25 10 - 60 unit/L LAB CHEMISTRY METHOD 02/01/2025 8:12 PM EDT [facility] Alkaline Phosphatase 63 42 - 121 unit/L LAB CHEMISTRY METHOD 02/01/2025 8:12 PM T [facility] Total Protein 7.1 6.0 - 8.0 g/dL LAB CHEMISTRY METHOD 02/01/2025 8:12 PM [facility] Albumin 4.0 3.2 - 5.0 g/dL LAB CHEMISTRY METHOD 02/01/2025 8:12 PM [facility] Total Bilirubin 0.5 0.0 - 1.4 mg/dL LAB CHEMISTRY METHOD 02/01/2025 8:12 PM [facility] Blood Venous blood specimen / Unknown Venipuncture / Unknown 02/01/2025 11:59 AM EDT 02/01/2025 11:59 AM EDT Vivi OSULLIVAN LAB BLOOD ORDERABLES Final Re sult [facility] [address] [place] [address], * Hepatitis C Screening (04/28/2017) Pathologist [facility] Hepatitis C Screening Abstracted us Historical Provider HEALTH MAINTENANCE Final Result * Colonoscopy (04/23/2017) [facility] Colonoscopy no interpretation , abstracted Anatomical Region Laterality Modality Other us Historical Provider HEALTH MAINTENANCE Final Result * HIV Screening (01/02/2015) HIV Screening Abstracted us Historical Provider HEALTH MAINTENANCE Final Result from Last 3 Months or Most Recently Relevant to Health Maintenance Insurance [facility] Care Teams Email Production Consultant Relationship Specialty Start Date End Date Bridget Pak MD [address] [place] [address] PCP - General 02/19/05
== END 2025-04-18 14:24 | disposition home or self-care (01) ==
LOC: HO.LAB 14:23
PROVIDERS: PCP Internal Medicine; Visit Provider Student in an Organized Health Care Education/Training Program
DX: M06.00 Rheumatoid arthritis without rheumatoid factor, unspecified site (principal); Z79.899 Other long term (current) drug therapy
CPT/HCPCS: 36415; 80053; 85025; 85652; 86140

== ENCOUNTER 2025-04-20 12:34 | Outpatient (AMB) | payer OTHER, SELFPAY ==
--- NOTE | 2025-04-20 13:15 | A.OFFVIS_ITS ---
Vital Signs 04/20/25 13:19 Height 5 ft 8 in Weight 217 lb 13.067 oz BMI 33.1 BP 142/80 H Blood Pressure Location Lt brachial Position Sitting Pulse 133 H Pulse Source Pulse Oximeter Pulse Oximetry (%) 98 Oxygen Delivery Method Room Air Intake Visit Reasons: follow up Intake Note: Patient presents for RA follow up. Allergies prednisone Allergy (Verified 04/20/25 13:19) Rash Medication List - Last Reconciled 04/20/25 by Kiera Fernandez MD atorvastatin 10 mg PO BEDTIME fluticasone propionate 50 mcg/actuation (Allergy Relief (fluticasone)) 2 sprays intranasal DAILY PRN hydrochlorothiazide 25 mg PO DAILY hydroxychloroquine (Plaquenil) 200 mg PO BID 90 days ibuprofen 400 mg PO Q8H PRN losartan 100 mg PO DAILY HPI Comments Details: Patient is a 59-year-old female with hypertension, hyperlipidemia, polyarticular osteoarthritis, GERD and seronegative rheumatoid arthritis here today for follow up. 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 Ineffective 06/2024. Hymiroz Current Rheumatology Medication(s): Hydroxychloroquine 200mg bid [facility] Medical History Spinal stenosis delivery delivered Hyperlipidemia Hypertension Prediabetes Screening examination for infectious disease Osteoarthritis of lumbosacral spine Migraine GERD (gastroesophageal reflux disease) Osteoarthritis cervical spine Seronegative rheumatoid arthritis Surgical History History of hysterectomy, supracervical Hx of breast reduction, elective S/P lumbar fusion Family History Maternal Aunt Breast cancer Mother Rheumatoid arthritis Hypertension Heart failure Social History Household Members: Spouse Housing: House Are you a primary career developer to a significant other at home: No Do you presently have visiting nurse or other home services: No 75 years or older and lives alone: No Alcohol intake: never Patient Tobacco Use Status: Never used Tobacco e-Cigarette/Vaping Use: Never Used service: No Current occupational status: employed 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Narrative Review of Systems Constitutional: Denies fever, chills, weight loss ENT: Denies vision changes, eye pain or eye redness, dental caries, dry mouth GI: Denies nausea, vomiting, diarrhea, abdominal pain, change in BM Pulm: Denies SOB, SCHERER, hemoptysis, wheezing Cards: Denies chest pain, palpitations Skin: Denies Raynaud's, rash, nail changes, photosensitivity, CONTINUOUS ABSORPTION PROCESS OPERATOR: Denies headaches, weakness, paresthesias, recurrent falls MSK: as per HPI All other systems reviewed and are unremarkable except noted above Physical Exam Exam Exam: Vital signs reviewed Physical Examination CONSTITUITIONAL Patient alert and cooperative. Well appearing and in no apparent painful distress MSK Hands * Right Hand: Able to make a fist. No swelling or tenderness to palpation of the MCPs, PIPs or DIPs. No deformities noted. * Left Hand: Able to make a fist. No swelling or tenderness to palpation of the MCPs, PIPs or DIPs. No deformities noted. Wrists * Right Wrist: Full ROM to flexion and extension. No swelling or TTP * Left Wrist: Full ROM to flexion and extension. No swelling or TTP Elbows * Right Elbow: Full ROM. No swelling or TTP. No TTP of the medial epicondyle. No TTP of the lateral epicondyle * Left Elbow: Full ROM. No swelling or TTP. No TTP of the medial epicondyle. No TTP of the lateral epicondyle Shoulders * Right shoulder: Full ROM. No swelling noted. No TTP of the AC joint. No TTP of the subacromial bursa. No TTP of the posterior shoulder * Left shoulder: Full ROM. No swelling noted. No TTP of the AC joint. No TTP of the subacromial bursa. No TTP of the posterior shoulder Knees * Right knee: Full ROM. No swelling noted. No TTP of the knee joint line. No TTP of pes anserine bursa * Left knee: Full ROM. No swelling noted. No TTP of the knee joint line. No TTP of pes anserine bursa. Ankles * Right ankle: Good ankle dorsiflexion and plantar flexion. No swelling. No TTP of the ankle joint * Left ankle: Good ankle dorsiflexion and plantar flexion. No swelling. No TTP o f the ankle joint Feet * Right foot: Negative squeeze test * Left foot: Negative squeeze test Tender points? * No tenderness to palpation of the bilateral trapezius, supraspinatus, anterior costochondral junctions, bilateral suboccipital muscle insertions SKIN No rashes Vital Signs: Last Vital Signs Pulse 133 H 04/20/25 13:19 BP 142/80 H 04/20/25 13:19 Pulse Ox 98 04/20/25 13:19 Oxygen Delivery Method Room Air 04/20/25 13:19 BMI result Body Mass Index 33.1 Results Reviewed Results Reviewed: Laboratory Tests 04/18/25 14:35 WBC 4.4 L RBC 4.87 Hgb 13.1 Hct 39.3 Plt Count 241 ESR 16 Sodium 142 Potassium 3.4 Chloride 103 Carbon Dioxide 31 H BUN 16 Creatinine 0.95 AST 22 ALT 26 C-Reactive Protein 0.27 Assessment & Plan Assessment & Plan (1) Seronegative rheumatoid arthritis: Comment: Onset 2013 Seronegative RA with predominant involvement of feet , ankles and knees 02/14 Methotrexate started - stopped due to ineffectiveness Code(s): M06.00 - Rheumatoid arthritis without rheumatoid factor, unspecified site Category: Medical Plan: #Seronegative Rheumatoid Athritis Patient is a 59-year-old female with seronegative RA who presents for follow-up. Doing well on Hydroxychloroquine Plan - Hydroxychloroquine 200mg bid - RTC 6 months - Labs before visit: CBC, CMP, ESR, CRP (2) Hepatitis B core antibody positive: Comment: She is also antibody positive and so not likely active Code(s): R76.8 - Other specified abnormal immunological findings in serum Category: Medical Plan: #Hep B core Ab positive Seen by Infectious Disease 05/2024. Disease likely not active and no follow up labs were recommended (3) Encounter for monitoring of hydroxychloroquine therapy: Code(s): Z51.81 - Encounter for therapeutic drug level monitoring; Z79.899 - Other fdc (current) drug therapy Plan: #Long-term Use of Hydroxychloroquine Discussed with patient the risks and benefits of hydroxychloroquine in managing the rheumatic condition Benefits include: - Reduced pain, reduce mortality, maintenance of remission and reduction of flares Risks include: - GI upset, skin hyperpigmentation, retinal toxicity (especially after more than 5 years of use), myopathy Advised yearly ophthalmology visits Plan I spent 30 minutes reviewing the record and labs, taking a history, examining the patient, discussing the treatment plan and documenting in the medical record Orders: Orders Complete Blood Count Auto Diff 6 Months Z79.899 - Other intermodal customer service (current) drug therapy Creatinine 6 Months Z79.899 - Other fdc (current) drug therapy C Reactive Protein 6 Months Z79.899 - Other fdc (current) drug therapy Erythrocyte Sedimentation Rate 6 Months Z79.899 - Other fdc (current) drug therapy Alanine Aminotransferase 6 Months Z79.899 - Other fdc (current) drug therapy Aspartate Amino Transferase 6 Months Z79.899 - Other intermodal customer service (current) drug therapy Medications: Refilled hydroxychloroquine (Plaquenil) 200 mg PO BID 180 tabs 1RF 90 days Z51.81 - Encounter for therapeutic drug level monitoring, Z79.899 - Other fdc (current) drug therapy Coding Level of Care Code Est Pt Level 4 (05567) Complex EM visit Add On G2211 Diagnoses Seronegative rheumatoid arthritis M06.00 Hepatitis B core antibody positive R76.8 Encounter for monitoring of hydroxychloroquine therapy Z51.81; Z79.899
[2025-04-20 13:19] VITALS: BP 142/80; PULSE 133; O2SAT 98; BMI 33.1
--- OUTSIDE RECORDS SUMMARY | 2025-04-20 23:52 | XMS_ITS | Clinical Summary ---
Author Organization [address] [facility] Address [address] [place] [address] Phone Care Team Providers Care Project Facilitator Name Role Phone Bridget Pak MD Primary Care Provider [phone] Allergies Active Allergy Reactions Criticality Noted Date [...] times a day. LATA TRINIDAD 5 Active [id number] on-FA-vit K-lut (Centrum Silver Women) 8 mg [...] Vitamin D deficiency 09/28/2015 RA (rheumatoid arthritis) ([facility] V24, [facility] V28) 01/17/2015 Overview (03/03/2024): Onset 2013 [...] PM EDT Hospital Encounter Radiology Department - [address] [phone] Encounter for screening mammogram for breast cancer Discharge Disposition: Home or Self Care 01/27/2025 3:30 PM EDT Office Visit Adult Medicine [address] [phone] Vivi Khoury PA Prediabetes (Primary Dx); Mixed hyperlipidemia; Primary hypertension; Vitamin D deficiency; Obesity (BMI 30.0-34.9); Rheumatoid arthritis, involving unspecified site, unspecified whether rheumatoid factor present ([facility] V24, [facility] V28); Need for vaccination against Streptococcus pneumoniae; [...] and bleeding OTHER SURGICAL HISTORY 06/2013 PROCEDURE: [facility] ARTHRODESIS POSTERIOR INTERBODY 1 NTRSPC LUMBAR OTHER SURGICAL HISTORY 2010 PROCEDURE: [facility] ARTHRD ANT INTERBODY MIN DSC CRV BELOW C2 COLONOSCOPY 04/23/2017 PROCEDURE: HISTORICAL COLONOSCOPY; COMMENT: negative BREAST REDUCTION 1990s Bilateral PROCEDURE: VA BREAST REDUCTION Medical History Medical History Date [...] 10:30 AM EDT Consult Bariatric Surgery - [place] [address] [place] [address] Megan Shepherd PA [address] [place] [phone] Health Maintenance Due Date Last Done [...] unspecified site, unspecified whether rheumatoid factor present ([facility] V24, [facility] V28) HEMOGLOBIN A1C Routine 02/01/2025 11:59 AM [...] Results * MG Mammo Digital Screening w Giu bilat (03/18/2025 2:16 PM EDT) Anatomical Region Laterality Modality Breast Bilateral Mammography 03/21/2025 2:21 PM EDT Impressions 03/21/2025 2:24 PM EDT Benign. BI-RADS CATEGORY: 1 - NEGATIVE RECOMMENDATION: Screening bilateral mammogram is recommended in 1 year. Mammo Location: [facility], [address] [place] [address], [id number], . -------- FINAL REPORT -------- Dictated By: Nannette Reddy Dictated Date: 03/21/2025 14:21 ET Assigned Physician: Nannette Reddy Reviewed and Electronically Signed By: Nannette Reddy Signed Date: 03/21/2025 14:24 ET Workstation ID: [id number] Transcribed By: Self Edit Transcribed Date: 03/21/2025 [...] is recommended in 1 year. Mammo Location: [facility], [address] [place] [address], [id number], . -------- FINAL REPORT -------- Dictated By: Nannette Reddy Dictated Date: 03/21/2025 14:21 ET Assigned Physician: Nannette Reddy Reviewed and Electronically Signed By: Nannette Reddy Signed Date: 03/21/2025 14:24 ET Workstation ID: [id number] Transcribed By: Self Edit Transcribed Date: 03/21/2025 14:21 ET us Bridget Pak MD IMG BI PROCEDURES Final Result * Lipid panel with reflex to direct LDL (02/01/2025 11:59 AM EDT) Cholesterol 184 0 - 200 mg/dL LAB CHEMISTRY METHOD 02/01/2025 8:19 PM EDT [facility] Triglycerides 93 0 - 150 mg/dL LAB CHEMISTRY METHOD 02/01/2025 8:19 PM EDT [facility] HDL 90 >=40 mg/dL LAB CHEMISTRY METHOD 02/01/2025 8:19 PM EDT [facility] LDL Calculated 75 0 - 100 mg/dL LAB CHEMISTRY METHOD 02/01/2025 8:19 PM EDT [facility] Comment:Estimated LDL Calcul ated using equation: Total cholesterol - HDL cholesterol - (Triglycerides/5) VLDL Cholesterol [place] 18.6 mg/dL LAB CHEMISTRY METHOD 02/01/2025 8:19 PM EDT [facility] Non HDL Chol. (LDL+VLDL) 94 <145 mg/dL LAB CHEMISTRY METHOD 02/01/2025 8:19 PM EDT [facility] Chol/HDL Ratio 2.0 0.0 - 4.4 LAB CHEMISTRY METHOD 02/01/2025 8:19 PM EDT [facility] Blood Venous blood specimen / Unknown Venipuncture / Unknown 02/01/2025 11:59 AM EDT 02/01/2025 11:59 AM EDT us Vivi OSULLIVAN LAB BLOOD ORDERABLES Final Re sult Performing Organization Address City/[facility]/ZIP Co de Phone Number [facility] [address] [place] [address], [place] [phone] * Vitamin D 25 hydroxy (02/01/2025 11:59 AM EDT) Vit D, 25-Hydroxy 32.2 30.0 - 80.0 ng/mL LAB CHEMISTRY METHOD 02/01/2025 8:39 PM EDT [facility] Blood Venous blood specimen / Unknown Venipuncture / Unknown 02/01/2025 11:59 AM EDT 02/01/2025 11:59 AM EDT us Vivi OSULLIVAN LAB BLOOD ORDERABLES Final Re sult Performing Organization Address City/[facility]/ZIP Co de Phone Number [facility] [address] [place] [address], [place] [phone] * Hemoglobin A1c (02/01/2025 11:59 AM EDT) Hemoglobin A1C 5.7 <6.5 % LAB CHEMISTRY METHOD 02/01/2025 10:17 PM EDT [facility] Mean Bld Glu Estim. 117 mg/dL LAB CHEMISTRY METHOD 02/01/2025 10:17 PM EDT [facility] Blood Venous blood specimen / Unknown Venipuncture / Unknown 02/01/2025 11:59 AM EDT 02/01/2025 11:59 AM EDT us Vivi OSULLIVAN LAB BLOOD ORDERABLES Final Re sult [facility] [address] [place] [address], [place] [phone] * Comprehensive metabolic panel (02/01/2025 11:59 AM EDT) Sodium 141 133 - 145 mmol/L LAB CHEMISTRY METHOD 02/01/2025 8:12 PM [facility] Potassium 4.0 3.5 - 5.5 mmol/L LAB CHEMISTRY METHOD 02/01/2025 8:12 PM [facility] Chloride 104 96 - 110 mmol/L LAB CHEMISTRY METHOD 02/01/2025 8:12 PM [facility] CO2 31 21 - 32 mmol/L LAB CHEMISTRY METHOD 02/01/2025 8:12 PM [facility] Anion Gap 6 3 - 11 LAB CHEMISTRY METHOD 02/01/2025 8:12 PM [facility] Glucose 87 70 - 100 mg/dL LAB CHEMISTRY METHOD 02/01/2025 8:12 PM [facility] BUN 13 5 - 25 mg/dL LAB CHEMISTRY METHOD 02/01/2025 8:12 PM [facility] Creatinine 1.01 0.50 - 1.10 mg/dL LAB CHEMISTRY METHOD 02/01/2025 8:12 PM [facility] eGFR 64 >=60 mL/min/1. 73m2 LAB CHEMISTRY METHOD 02/01/2025 8:12 PM [facility] Comment:Calculation based on the Chronic Kidney Disease Epidemiology Collaboration (CKD-EPI) equation refit without adjustment for race. BUN/Creatinine Ratio 12.9 LAB CHEMISTRY METHOD 02/01/2025 8:12 PM [facility] Calcium 9.4 8.5 - 10.5 mg/dL LAB CHEMISTRY METHOD 02/01/2025 8:12 PM EDT [facility] AST (SGOT) 26 10 - 42 unit/L LAB CHEMISTRY METHOD 02/01/2025 8:12 PM [facility] ALT (SGPT) 25 10 - 60 unit/L LAB CHEMISTRY METHOD 02/01/2025 8:12 PM EDT [facility] Alkaline Phosphatase 63 42 - 121 unit/L LAB CHEMISTRY METHOD 02/01/2025 8:12 PM T [facility] Total Protein 7.1 6.0 - 8.0 g/dL LAB CHEMISTRY METHOD 02/01/2025 8:12 PM [facility] Albumin 4.0 3.2 - 5.0 g/dL LAB CHEMISTRY METHOD 02/01/2025 8:12 PM [facility] Total Bilirubin 0.5 0.0 - 1.4 mg/dL LAB CHEMISTRY METHOD 02/01/2025 8:12 PM [facility] Blood Venous blood specimen / Unknown Venipuncture / Unknown 02/01/2025 11:59 AM EDT 02/01/2025 11:59 AM EDT Vivi OSULLIVAN LAB BLOOD ORDERABLES Final Re sult [facility] [address] [place] [address], * Hepatitis C Screening (04/28/2017) Pathologist [facility] Hepatitis C Screening Abstracted us Historical Provider HEALTH MAINTENANCE Final Result * Colonoscopy (04/23/2017) [facility] Colonoscopy no interpretation , abstracted Anatomical Region Laterality Modality Other us Historical Provider HEALTH MAINTENANCE Final Result * HIV Screening (01/02/2015) HIV Screening Abstracted us Historical Provider HEALTH MAINTENANCE Final Result from Last 3 Months or Most Recently Relevant to Health Maintenance Insurance [facility] Care Teams Project Facilitator Relationship Specialty Start Date End Date Bridget Pak MD [address] [place] [address] PCP - General 02/19/05
== END 2025-04-20 14:10 | disposition home or self-care (01) ==
LOC: HO.RHES 12:35
PROVIDERS: PCP Internal Medicine; Visit Provider Student in an Organized Health Care Education/Training Program
DX: M06.00 Rheumatoid arthritis without rheumatoid factor, unspecified site (principal); R76.89 Other specified abnormal immunological findings in serum; Z51.81 Encounter for therapeutic drug level monitoring; Z79.899 Other long term (current) drug therapy
CPT/HCPCS: 99214; G2211